=== PATIENT | female | born 1955 | race Caucasian/White ===

== ENCOUNTER 2017-03-20 18:50 | Emergency (ER) | payer OTHER ==
[~2017-03-20] VITALS: Ht 170.2 cm; Wt 87.2 kg
[~2017-03-20 18:50] MED LIST: MORP60TA6 PO; OXYC-57 PO
[2017-03-20 19:21] VITALS: TEMP 37; Ht 170.2 cm; Wt 87.2 kg
[2017-03-20] MEDS ORDERED: PRO AIR INH (20:28)
[2017-03-20] MEDS ORDERED: PRLSR20 PO (20:28)
[2017-03-20] MEDS ORDERED: OXYC-57 PO (20:28)
[2017-03-20] MEDS ORDERED: SCOP1.5D2 TD (20:28)
[2017-03-20] MEDS ORDERED: LORA-741 PO (20:28)
[2017-03-20] MEDS ORDERED: MORP-157 PO (20:28)
[2017-03-20] MEDS ORDERED: ACET-1256 PO (20:28)
[2017-03-20] MEDS ORDERED: PROM25TA9 PO (20:28)
[2017-03-20] MEDS ORDERED: SIMV10TA2 PO (20:28)
[2017-03-20] MEDS ORDERED: LISI-461 PO (20:28)
[2017-03-20] MEDS ORDERED: MORP-88 PO (20:28)
[2017-03-20] MEDS ORDERED: OMEG10007 PO (20:28)
[2017-03-20] MEDS ORDERED: DIPH25CA5 PO (20:28)
[2017-03-20] MEDS ORDERED: PROPARACAINE HCL 0.5% OP SOLN 15 ML BTL OP STA (20:32)
[2017-03-20] MEDS ORDERED: ACETAMINOPHEN 500 MG TAB PO STA (21:24)
--- NOTE | 2017-03-20 22:03 | Ophthalmology Consultation ---
Ophthalmology Consultation Date of Service: Mar 20, 2017. Requested By: [facility] History of Present Illness: 61 y/o female presents for right eye pain and vision loss x 1 month. started prior to going on 21 day cruise. tried OTC tears/gel/eye wash and has be progressively getting worse CC: eye pain/vision loss OD Vision: worse Location (of CC): OD Quality/Severity: moderate-severe Duration: 1 month Timing: progressively getting worse Context: did not seek eye care Associated Signs/Symptoms: photophobia Modifying Factors: none No other eye complaints. Mood and Affect: normal Past Ocular History: Right Eye: 1. h/o glasses/CL use Left Eye: 1. h/o glasses/CL use Medications: see EMR Relevant Past Medical History: HTN, chronic back pain VA OD: HM OS: NT IOP: 20 OD tonopen VF: unable to test due to HM VA Motility: full OU External: The ocular adnexae are unremarkable. SLE: Lids/Lashes: wnl OU Conjunctiva/Sclera: 3+injection OD; quiet OS Cornea: +5mm H x 2mm vertical central epithelial defect w/ corneal fold and vascular folds OD; clear OS Anterior Chamber: +fluro flare OD (fluro instilled in ED)otherwise deep and quiet OU Iris: normal OU; no NVI OU Lens: nsc OU Dilated fundus exam OD: deferred Dilated fundus exam OS: deferred Assessment and Plan: 1. Corneal Abrasion OD -no infiltrate/ulcer, but nonhealing for approx 1 month -cover w/ ciloxan ophth oint 6x/day and atropine 1% bid for photophobia/pain -may require bandage CL/topical steroid regimen Follow-Up: -f/u w/ general ophth [facility] tomorrow Parag Simmons DO
[2017-03-20] MEDS ORDERED: ATROPINE SULFATE 1% OP SOLN 5 ML BTL OP STA (22:12)
[2017-03-20] MEDS ORDERED: CIPROFLOXACIN HCL 3.5 GM TUBE OP ONE (22:15)
--- NOTE | 2017-03-20 22:21 | EMERGENCY ROOM VISIT NOTE ---
History First contact with patient: 20:00 Chief Complaint: EYE PAIN Stated Complaint: RT EYE BLURRY,RED,SENSITIVE TO LIGHT,PAIN- REFERRE History of Present Illness The patient is a 61 year old female who presents to the Emergency Room with complaints of severe right eye pain that has gotten progressively worse over the last month. The patient denies any known injury. She does not wear contact lenses. She has had significantly decreased vision, which she describes as blurry in that eye. She describes the pain as a sharp, stabbing sensation that is worsened with light exposure. No fevers. The patient saw her primary care physician today, who is concerned about glaucoma. She was subsequently sent here for evaluation. Review of Systems 6 system review negative. Please see pertinent positives in the history of present illness section. Past Medical/Surgical History Hypertension Chronic pain Social History Smoking Status: Former Smoker Marital Status: Current/Historical Medications Scheduled Acetaminophen (Tylenol), 500 MG PO PRN Fish Oil (Florissant-3), 1 CAP PO TID Lisinopril (Zestril), 10 MG PO DAILY Morphine Cont Rel (Ms Contin), 15 MG PO DAILY Morphine Sulfate (Morphine Sulfate Cr), 60 MG PO Q12 Omeprazole (Prilosec), 20 MG PO DAILY Scopolamine (Transderm-Scop), 1.5 MG TD Q72H Simvastatin (Zocor), 1 TAB PO HS Scheduled PRN Diphenhydramine Hcl (Benadryl), 25 MG PO DAILY PRN for PRN Lorazepam (Ativan), 0.5 MG PO DAILY PRN for TRAVEL Oxycodone/Acetaminophen 5MG/325MG (Percocet 5MG/325MG), 1 TABLET PO BID PRN for SEVERE PAIN Promethazine Hcl (Phenergan), 25 MG PO Q8 PRN for Nausea [Pro Air], 2 PUFF INH Q4 PRN for Wheezing Physical Exam Vital Signs Date Time Temp Pulse Resp B/P (MAP) Pulse Ox O2 Delivery O2 Flow Rate FiO2 03/20/17 22:54 94 163/105 94 03/20/17 19:21 37.0 107 19 155/87 90 Room Air Right Eye Acuity: PT REPORTS EVERYTHING IS BLURRY Left Eye Acuity: 20/50 Physical Exam VITALS: Vitals are noted on the nurse's note and reviewed by myself. Vital signs stable. GENERAL: 61-year-old female, in obvious discomfort,, in no acute distress, nondiaphoretic, well-developed well-nourished. SKIN: The skin was without rashes, erythema, edema, or bruising. HEAD: Normocephalic atraumatic. EYES:Extraocular movements intact. Tearing noted from the right eye. The conjunctiva is injected from the right eye. Insert Slit Lamp Exam Slit Lamp Examination was performed of the right eye(s). Alcaine drops were applied to the affected eye(s) for proper anesthetization. The affected eye(s) were stained with Fluorescein stain to precipitate adequate visualization of any conjunctival/scleral excoriations or ulcers. The patients face was comfortably rested on the chin guard of the slit lamp apparatus. The lights were dimmed and the affected eye(s) were thoroughly examined under microscopy using the blue light. Approximate 4 x 3 mm deep uptake was present Directly over the right pupil. Additionally, the eye(s) were examined under microscopy using the regular light. Close examination revealed injection. No other abnormalities. No foreign body. No hyphema.. Patient tolerated the procedure well and no complications were met. Insert Optic Tonometry Right eye: 20, 20, 21 Left eye: Unable to obtain MUSCULOSKELETAL: Strength 5/5 throughout. NEURO: Patient was alert and oriented to person place and time. Normal sensation to touch. No focal neurological deficits. Medical Decision & Procedures Medications Administered Medications (Trade) Dose Ordered Sig/Carlotta Route Start Time Stop Time Status Last Admin Dose Admin Proparacaine HCl (Alcaine 0.5% Oph Soln) 2 drops NOW STAT OP 03/20/17 20:32 03/20/17 20:34 DC 03/20/17 20:38 2 DROPS Acetaminophen (Tylenol Tab) 500 mg NOW STAT PO 03/20/17 21:24 03/20/17 21:25 DC 03/20/17 21:29 500 MG Ciprofloxacin HCl (Ciloxan 0.3% Op Oint) 1 appln NOW ONCE OP 03/20/17 22:15 03/20/17 22:16 DC 03/20/17 22:50 1 APPLN Atropine Sulfate (Atropine Sulfate 1% Oph Soln) 1 drops ONE STAT OP 03/20/17 22:12 03/20/17 22:14 DC 03/20/17 22:50 1 DROPS ED Course The patient was seen and examined she was given Percocet for pain The case was discussed with Dr. Simmons in ophthalmology who kindly agreed to evaluate the patient We discussed the case. The findings were discussed with the patient and the patient's significant other. They voiced understanding. Ciloxan ophthalmic ointments were applied to the right eye. Atropine drop was also applied to the right eye. Discharge instructions were reviewed, and the patient was discharged in good condition Medical Decision Differential diagnosis: Corneal abrasion, ulcer, foreign-body, iritis, hyphema, glaucoma, globe rupture, scleritis, infectious etiology This patient is a 61-year-old female that presents to the emergency department with complaints of severe right eye discomfort and vision loss. On exam, she had significant uptake on the cornea over the pupil. Due to her physical exam, and decrease in vision, ophthalmology was consulted. They kindly evaluated the patient in the emergency department. Her diagnosis is a nonhealing, chronic corneal abrasion. Antibiotic ointment and atropine were recommended. This was dispensed to the emergency department. She was advised to contact the corneal specialist in the morning for a follow-up appointment tomorrow. She and her significant other are comfortable with this plan, and she was discharged in good condition. She will return for any worsening symptoms. This chart was completed in part utilizing [employer] Speech Voice Recognition software. Attempts were made to minimize the grammatical errors, random word insertions, pronoun errors and incomplete sentences. Any formal questions or concerns about the content, text or information contained within the body of this dictation should be directly addressed to the provider for clarification. Consults Consulting Physician: Dr. Simmons Impression Primary Impression: Corneal abrasion, right Departure Information Dispostion Home / Self-Care Condition GOOD Referrals Brenda Patrick M.D. (PCP) Jose Angel Walker M.D. Patient Instructions ED Abrasion Corneal Ch, My [facility] Additional Instructions You were evaluated in the emergency department for eye pain. The repairing calibrator evaluated a few, and believes this is coming from a chronic corneal abrasion Please do Ciloxan ophthalmic ointment apply 1 application to the eyelid every 4 hours Please do atropine drops 1 drop to the right eye twice daily for pain Continue other pain medication as prescribed Please call Dr. Walker's office in the morning for a follow up appointment Do not hesitate to return to the emergency department with any new, worsening or concerning symptoms
[2017-03-20 22:54] VITALS: BP 163/105; PULSE 94; O2SAT 94
== END 2017-03-20 22:55 | disposition home or self-care (01) ==
LOC: C.EDB 18:51 → C.EDD 22:55
DX: S05.01XA Injury of conjunctiva and corneal abrasion without foreign body, right eye, initial encounter (principal); X58.XXXA Exposure to other specified factors, initial encounter; I10 Essential (primary) hypertension; G89.29 Other chronic pain; Z87.891 Personal history of nicotine dependence; Z79.899 Other long term (current) drug therapy

== ENCOUNTER 2018-07-23 19:47 | Inpatient (IN) ==
[2018-07-23] MEDS ORDERED: LORazepam 2 MG/4 ML VIAL IV STA (20:09)
[2018-07-23] MEDS ORDERED: SODIUM CHLORIDE 0.9% 1000ML 1,000 ML IV SCH ×2 (20:15)
[2018-07-23 20:54] LABS: Basophils # (auto) 0.01 K/uL (0-0.2); Basophils % (auto) 0.1 %; Hematocrit (blood only) 41.3 % (37-47); Hemoglobin 14.6 g/dL (12.0-16.0); Immature Granulocytes % (auto) 0.6 %; Lymphocytes # (auto) 0.56 K/uL (1.2-3.4); Lymphocytes % (auto) 3.3 %; Mean Corpuscular Hgb Conc 35.4 g/dL (32-36); Mean Corpuscular Volume 88.8 fL (80-100); Mean Platelet Volume 11.2 fL (7.4-10.4); Monocytes # (auto) 0.77 K/uL (0.11-0.59); Monocytes % (auto) 4.5 %; Neutrophils # (auto) 15.69 K/uL (1.4-6.5); Neutrophils % (auto) 91.5 %; Platelet Count 169 K/uL (130-400); RDW Coefficient of Variation 12.7 % (11.5-14.5); RDW Standard Deviation 40.7 fL (36.4-46.3); Red Blood Count 4.65 M/uL (4.2-5.4); White Blood Count 17.13 K/uL (4.8-10.8)
[2018-07-23] MEDS ORDERED: SUCCINYLCHOLINE CHLORIDE 20 MG/ML 10 ML VIAL IV ONE (21:09)
[2018-07-23] MEDS ORDERED: ETOMIDATE 2 MG/ML 20 ML VIAL IV ONE (21:09)
--- NOTE | 2018-07-23 21:19 | CT Scan Report ---
HEAD CT NONCONTRAST CT DOSE: 537.48 mGy.cm HISTORY: Altered mental status. TECHNIQUE: Multiaxial CT images of the head were performed without the use of intravenous contrast. A utomated exposure control was utilized for this study. A dose lowering technique was utilized adheri ng to the principles of ALARA. Comparison: None. Findings: The paranasal sinuses and mastoid air cells are clear. The calvarium and skull base are int act. There is no mass, hematoma, midline shift, acute infarct. White matter hypodensity is nonspecifi c but suggestive of microvascular ischemic change. The ventricles and sulci demonstrate mild age-rela donny involutional changes. Impression: No acute intracranial abnormality. White matter hypodensity is nonspecific but suggestive of microvas cular ischemic change. Electronically signed by: Parmjit Chowdhury M.D. 07/23/2018 9:18 PM
[2018-07-23] MEDS ORDERED: RAPID SEQUENCE INDUCTION BAG ONE (21:39)
[2018-07-23 21:40] LABS: Alanine Aminotransferase 322 U/L (12-78); Albumin Level 3.7 gm/dl (3.4-5.0); Alkaline Phosphatase 195 U/L (45-117); BUN Creatinine Ratio 13.6 (10-20); Bilirubin,Total 4.7 mg/dl (0.2-1); Blood Urea Nitrogen 15 mg/dl (7-18); Calcium 9.5 mg/dl (8.5-10.1); Carbon Dioxide 22 mmol/L (21-32); Chloride 101 mmol/L (98-107); Est GFR (African American) 64.2; Est GFR (Non-African American) 55.4; Globulin 3.8 gm/dl (2.5-4.0); Glucose 211 mg/dl (70-99); Sodium 135 mmol/L (136-145); Total Protein 7.5 gm/dl (6.4-8.2); Troponin I < 0.015 ng/ml (0-0.045)
[2018-07-23 21:41] LABS: Aspartate Aminotransferase 307 U/L (15-37); Magnesium 1.7 mg/dl (1.8-2.4); Potassium 3.9 mmol/L (3.5-5.1)
--- NOTE | 2018-07-23 21:41 | XRay Report ---
KUB HISTORY: Distended abdomen. COMPARISON: None. FINDINGS: The bowel gas pattern is unremarkable. There are no dilated loops of small bowel to suggest an obstruction. No renal calculi. No ureteral calculi. No pneumoperitoneum or pneumatosis. S-shaped scoliosis of the thoracolumbar spine. IMPRESSION: Unremarkable bowel gas pattern. No evidence for bowel obstruction. Electronically signed by: Parmjit Chowdhury M.D. 07/23/2018 9:39 PM
--- NOTE | 2018-07-23 21:42 | XRay Report ---
XR chest 1V portable HISTORY: weakness COMPARISON: None. FINDINGS: No pneumothorax. No pleural effusions. A few left basilar linear densities suggesting subse gmental atelectasis. The heart is borderline enlarged. Rotated study. Mild perihilar interstitial thi ckening which could be technical or represent mild congestive change. IMPRESSION: Mild perihilar interstitial thickening which could be technical or represent mild congestive change. Electronically signed by: Parmjit Chowdhury M.D. 07/23/2018 9:40 PM
[2018-07-23] MEDS ORDERED: PROPOFOL IV EMULSION 10 MG/ML 100 ML VIAL IV ONE (21:48)
[2018-07-23] MEDS ORDERED: KETOROLAC TROMETHAMINE 15 MG/ML VIAL IV STA (21:58)
[2018-07-23] MEDS ORDERED: PROPOFOL 1,000 MG/100 ML VIAL IV SCH (22:00)
[2018-07-23] MEDS ORDERED: MAGNESIUM SULFATE 1GM / D5W BAG IV ONE (22:09)
[2018-07-23] MEDS: MAGNESIUM SULFATE / D5W 1 GM/100 ML BAG IV SCH ×2 (22:15→23:27)
[2018-07-23] MEDS ORDERED: AcetylCYSTEINE IV 21 HR REGIMEN (>40KG) IV STA (22:23)
[2018-07-23] MEDS ORDERED: cefTRIAXone SODIUM 2,000 MG in DEXTROSE 5% 50 ML IV STA (22:23)
[2018-07-23] MEDS ORDERED: ACETYLCYSTEINE IV ONE ×2 (22:23→23:26)
[2018-07-23] MEDS ORDERED: DEXTROSE 5% IV ONE ×2 (22:23→23:26)
[2018-07-23 22:26] LABS: HCO3 ABG 19 mmol/L (19-24); Oxygen Saturation ABG 97.3 % (90-95); PCO2 ABG 34 mmHg (35-46); PO2 ABG 108 mm/Hg (80-95); pH ABG 7.38 (7.35-7.45)
[2018-07-23 22:29] LABS: Allen Test POS (Pos)
[2018-07-23 22:29] LABS: Appearance Urine Clear (Clear); Color Urine Yellow; Glucose Urine UA 2+ (Negative); Ketones Urine Trace (Negative); Leukocyte Esterase Urine Negative (Negative); Nitrite Urine Negative (Negative); Protein Urine 1+ (Negative); Specific Gravity Urine 1.015 (1.000-1.030); Urobilinogen Urine Negative (Negative)
[2018-07-23 22:33] LABS: Bilirubin Urine 2+ (Negative)
[2018-07-23 22:34] LABS: Ictotest Urine Positive (Negative)
[2018-07-23 22:48] LABS: Bacteria Urine Negative (Negative); RBC Urine 0-4 /hpf (0-4); WBC Urine 0-5 /hpf (0-5)
--- NOTE | 2018-07-23 22:48 | Emergency Department Note ---
Entered by Garth Tejeda acting as a scribe for Kamini Acosta MD History of Present Illness General Chief complaint: Altered Mental Status Stated complaint: BACK PAIN Source: family Limitations: altered mental status History of Present Illness Onset (ago): day(s) 1 Location: back Pain Consistency: + constant Associated symptoms: + other (abdominal pain; no vomiting or diarrhea) History is limited secondary to cognitive status. The patient is a 62 year old female with chronic pain syndrome who presents to the Emergency Room with complaints of constant back pain beginning yesterday and altered mental status. The at bedside reports that the patients pain has been worsening in the past several hours. He states that in the past couple of hours she started hallucinating and speaking to people that were not there, and on the way to the ER she was complaining of abdominal pain. He states that the patient has been attempting to urinate frequently throughout the day, but he thinks she only was able to urinate once. He states that she is taking oxycodone and Percocet but is currently being weaned off of these by her PCP. He notes that they have sqvd-yho-gscdset sleeping pills, allergy medication, and Tylenol PM at home. He is unsure if the patient took extra medications today. He reports that the patient has not vomited or had diarrhea. He notes that she most recently had alcohol last week when they shared a bottle of wine, and she drinks very little. She does not use marijuana. Home Medications Home Medications Medication Instructions Recorded Confirmed Type Sleep Aid Tab 1 tab PO HS PRN 07/23/18 07/23/18 History acetaminophen [Tylenol Extra 500 mg PO Q6H PRN 07/23/18 07/23/18 History Strength] gabapentin [Neurontin] 100 mg PO TID 07/23/18 07/23/18 History lisinopril 10 mg PO DAILY 07/23/18 07/23/18 History morphine [MS Contin] 60 mg PO Q12 07/23/18 07/23/18 History omega 9-gvm-qiz-fish oil [[place]-3] 1 cap PO TID 07/23/18 07/23/18 History omeprazole 20 mg PO DAILY 07/23/18 07/23/18 History oxycodone-acetaminophen [Percocet] 1 tab PO BID PRN 07/23/18 07/23/18 History promethazine 25 mg PO Q8 PRN 07/23/18 07/23/18 History scopolamine base [Transderm-Scop] 1 patch TOPICAL .UD WHEN TRAVELING 07/23/18 07/23/18 History simvastatin [Zocor] 10 mg PO DAILY 07/23/18 07/23/18 History Allergies Allergy/AdvReac Type Severity Reaction Status Date / Time sulfamethoxazole Allergy Rash Verified 07/23/18 22:25 [From Bactrim] trimethoprim [From Bactrim] Allergy Rash Verified 07/23/18 22:25 IBUPROFEN Allergy Unknown GASTRIC Uncoded 07/23/18 22:25 SYMPTOMS Past Med/Surg History Medical History Scoliosis Chronic pain syndrome Surgical History History of back surgery Social History Preferred Language: Czech Communication Ability: Unable Beliefs That Will Affect Care: None Current Living Situation: Spouse Feels Safe at Home: Yes Smoking Status: Former smoker Hx Alcohol Use: Yes Alcohol type: wine Hx Substance Use: No Review of Systems Unobtainable due to cognitive status Physical Exam Vital Signs Vital Signs - 24 hr 07/23/18 19:49 07/23/18 19:58 07/23/18 20:06 Temperature 37.8 C H Temperature Source Oral Sepsis Recent Fever Within 48 Hours Yes Sepsis New/Unexplained Change in Mental Status Yes Sepsis Action Taken by Nursing No Action Required End-Tidal CO2 Pulse Rate 133 H 135 H 130 H Pulse Rate [Apical] Pulse Rate from SpO2 Sensor 135 H 130 H Respiratory Rate 22 27 H 21 Blood Pressure 171/84 H 156/106 H Blood Pressure [Left Arm] Blood Pressure Mean 113 122 Blood Pressure Mean [Left Arm] Pulse Oximetry 92 95 95 Oxygen Delivery Method Room Air Fraction of Inspired Oxygen 07/23/18 20:10 07/23/18 20:20 07/23/18 20:30 Temperature Temperature Source Sepsis Recent Fever Within 48 Hours Sepsis New/Unexplained Change in Mental Status Sepsis Action Taken by Nursing End-Tidal CO2 Pulse Rate 130 H 123 H 135 H Pulse Rate [Apical] Pulse Rate from SpO2 Sensor 130 H 124 H 136 H Respiratory Rate 32 H 26 H 22 Blood Pressure Blood Pressure [Left Arm] Blood Pressure Mean Blood Pressure Mean [Left Arm] Pulse Oximetry 94 95 96 Oxygen Delivery Method Room Air Fraction of Inspired Oxygen 07/23/18 20:40 07/23/18 20:42 07/23/18 20:50 Temperature Temperature Source Sepsis Recent Fever Within 48 Hours Sepsis New/Unexplained Change in Mental Status Sepsis Action Taken by Nursing End-Tidal CO2 Pulse Rate 135 H 134 H 129 H Pulse Rate [Apical] Pulse Rate from SpO2 Sensor 134 H 133 H 129 H Respiratory Rate 21 28 H 34 H Blood Pressure 176/105 H Blood Pressure [Left Arm] Blood Pressure Mean 128 Blood Pressure Mean [Left Arm] Pulse Oximetry 97 95 94 Oxygen Delivery Method Fraction of Inspired Oxygen 07/23/18 20:53 07/23/18 21:08 07/23/18 21:10 Temperature Temperature Source Sepsis Recent Fever Within 48 Hours Sepsis New/Unexplained Change in Mental Status Sepsis Action Taken by Nursing End-Tidal CO2 Pulse Rate 134 H 132 H Pulse Rate [Apical] 133 H Pulse Rate from SpO2 Sensor 134 H 132 H Respiratory Rate 18 34 H 36 H Blood Pressure Blood Pressure [Left Arm] 176/105 H Blood Pressure Mean Blood Pressure Mean [Left Arm] 128 Pulse Oximetry 96 93 93 Oxygen Delivery Method Room Air Fraction of Inspired Oxygen 07/23/18 21:20 07/23/18 21:30 07/23/18 21:40 Temperature Temperature Source Sepsis Recent Fever Within 48 Hours Sepsis New/Unexplained Change in Mental Status Sepsis Action Taken by Nursing End-Tidal CO2 Pulse Rate 132 H 130 H 130 H Pulse Rate [Apical] Pulse Rate from SpO2 Sensor 131 H 130 H Respiratory Rate 37 H 25 H Blood Pressure Blood Pressure [Left Arm] Blood Pressure Mean Blood Pressure Mean [Left Arm] Pulse Oximetry 93 99 Oxygen Delivery Method Fraction of Inspired Oxygen 07/23/18 21:41 07/23/18 21:42 07/23/18 21:43 Temperature Temperature Source Sepsis Recent Fever Within 48 Hours Sepsis New/Unexplained Change in Mental Status Sepsis Action Taken by Nursing End-Tidal CO2 33 Pulse Rate 132 H 132 H 127 H Pulse Rate [Apical] Pulse Rate from SpO2 Sensor 133 H 131 H Respiratory Rate 19 Blood Pressure 187/89 H 169/112 H Blood Pressure [Left Arm] Blood Pressure Mean 121 131 Blood Pressure Mean [Left Arm] Pulse Oximetry 99 100 97 Oxygen Delivery Method Fraction of Inspired Oxygen 40 07/23/18 21:46 07/23/18 21:50 07/23/18 21:51 Temperature Temperature Source Sepsis Recent Fever Within 48 Hours Sepsis New/Unexplained Change in Mental Status Sepsis Action Taken by Nursing End-Tidal CO2 Pulse Rate 147 H 145 H 137 H Pulse Rate [Apical] Pulse Rate from SpO2 Sensor 148 H 145 H 136 H Respiratory Rate Blood Pressure 258/105 H 227/97 H Blood Pressure [Left Arm] Blood Pressure Mean 156 140 Blood Pressure Mean [Left Arm] Pulse Oximetry 100 99 100 Oxygen Delivery Method Fraction of Inspired Oxygen 07/23/18 21:56 07/23/18 22:00 07/23/18 22:01 Temperature 39.1 C H Temperature Source Rectal Sepsis Recent Fever Within 48 Hours Sepsis New/Unexplained Change in Mental Status Sepsis Action Taken by Nursing End-Tidal CO2 33 27 37 Pulse Rate 138 H 138 H 139 H Pulse Rate [Apical] Pulse Rate from SpO2 Sensor 137 H 138 H 139 H Respiratory Rate Blood Pressure 172/101 H 208/99 H Blood Pressure [Left Arm] Blood Pressure Mean 124 135 Blood Pressure Mean [Left Arm] Pulse Oximetry 98 97 97 Oxygen Delivery Method Fraction of Inspired Oxygen 07/23/18 22:07 07/23/18 22:10 07/23/18 22:11 Temperature Temperature Source Sepsis Recent Fever Within 48 Hours Sepsis New/Unexplained Change in Mental Status Sepsis Action Taken by Nursing End-Tidal CO2 40 37 38 Pulse Rate 136 H 132 H 129 H Pulse Rate [Apical] Pulse Rate from SpO2 Sensor 137 H 133 H 128 H Respiratory Rate Blood Pressure 194/84 H 147/93 H Blood Pressure [Left Arm] Blood Pressure Mean 120 111 Blood Pressure Mean [Left Arm] Pulse Oximetry 96 96 97 Oxygen Delivery Method Fraction of Inspired Oxygen 07/23/18 22:16 07/23/18 22:17 07/23/18 22:20 Temperature Temperature Source Sepsis Recent Fever Within 48 Hours Sepsis New/Unexplained Change in Mental Status Sepsis Action Taken by Nursing End-Tidal CO2 36 33 33 Pulse Rate 124 H 122 H 125 H Pulse Rate [Apical] Pulse Rate from SpO2 Sensor 124 H 123 H 125 H Respiratory Rate Blood Pressure 146/80 H Blood Pressure [Left Arm] Blood Pressure Mean 102 Blood Pressure Mean [Left Arm] Pulse Oximetry 95 97 97 Oxygen Delivery Method Fraction of Inspired Oxygen 07/23/18 22:21 07/23/18 22:30 07/23/18 23:00 Temperature Temperature Source Sepsis Recent Fever Within 48 Hours Sepsis New/Unexplained Change in Mental Status Sepsis Action Taken by Nursing End-Tidal CO2 35 33 34 Pulse Rate 123 H 118 H 121 H Pulse Rate [Apical] Pulse Rate from SpO2 Sensor 122 H 118 H 121 H Respiratory Rate Blood Pressure 136/78 Blood Pressure [Left Arm] Blood Pressure Mean 97 Blood Pressure Mean [Left Arm] Pulse Oximetry 95 96 100 Oxygen Delivery Method Fraction of Inspired Oxygen 07/23/18 23:10 07/23/18 23:20 07/23/18 23:30 Temperature Temperature Source Sepsis Recent Fever Within 48 Hours Sepsis New/Unexplained Change in Mental Status Sepsis Action Taken by Nursing End-Tidal CO2 38 38 32 Pulse Rate 118 H Pulse Rate [Apical] Pulse Rate from SpO2 Sensor 137 H 125 H 118 H Respiratory Rate Blood Pressure Blood Pressure [Left Arm] Blood Pressure Mean Blood Pressure Mean [Left Arm] Pulse Oximetry 98 98 97 Oxygen Delivery Method Mechanical Vent Fraction of Inspired Oxygen 40 07/23/18 23:40 07/23/18 23:41 Temperature Temperature Source Sepsis Recent Fever Within 48 Hours Sepsis New/Unexplained Change in Mental Status Sepsis Action Taken by Nursing End-Tidal CO2 35 35 Pulse Rate 110 H 114 H Pulse Rate [Apical] Pulse Rate from SpO2 Sensor 112 H 114 H Respiratory Rate 16 Blood Pressure 153/69 H Blood Pressure [Left Arm] Blood Pressure Mean 97 Blood Pressure Mean [Left Arm] Pulse Oximetry 97 98 Oxygen Delivery Method Mechanical Vent Mechanical Vent Fraction of Inspired Oxygen 40 40 Vital signs reviewed. General: Disheveled-appearing female rolling about the bed, seems agitated. HEENT: Dry mucous membranes and crusty lips. No scleral icterus, pupils 4mm and reactive bilaterally, neck supple. Atraumatic. Cardiovascular: Tachycardic rate, regular rhythm, no extra sounds. Pulmonary: Clear to auscultation bilaterally, normal work of breathing. Abdomen: Slightly distended and obese abdomen, mild diffuse abdominal tenderness to palpation, positive bowel sounds. Musculoskeletal: Atraumatic, no peripheral edema. Neurologic: Moves all extremities equally, follows commands minimally, unable to answer questions appropriately. picking at the air- hallucinations? Skin: Warm, dry, no rash Procedures Free Text Procedures PROCEDURE NOTE: Informed consent was obtained from the . Verify Correct Patient: yes Procedure: Endotracheal intubation Indication: aortic protection, obtunded The procedure was done emergently. Description of the Procedure: The patient was seen and properly identified. The patient was pre-oxygenated and intubated after rapid sequence induction with meds: succinylcholine and etomidate. Intubation was performed using a 4.0 MAC blade and a 8.0 cuffed endotracheal tube. The tube was visualized going through the cords and secured with the 22 cm tyrone at the lips. The patient had good b ilateral breath sounds in the axillae with good chest rise. Proper ET tube placement was confirmed by end tidal CO2 detector. Propofol used for further maintenance. The patient tolerated the procedure well. Central Line Placement Right Femoral: Time Out Performed: Yes Patient Placed on Monitor/Pulse Ox: Yes MD Prep: mask, gown and gloves Central Line Prep: Chlorhexidine scrub Ultrasound Used for Placement: No Central Line Lumen Inserted: triple Post Procedure: sutured in place, good blood return, all ports aspirated, flushed, capped and sterile dressing applied Patient Tolerated Procedure: well and no complications Complications: none Lumbar Puncture Time Out Performed: Yes Patient Position: right lateral decubitus Skin Prep: Povidone-Iodine 1% Spinal Needle Gauge: 20G Interspace Used: L3-L4 Complications: unable to obtain CSF Additional Comments: Patient has significant postoperative change and scoliosis interfering with the bedside lumbar puncture attempt. Course 1956: The patient was evaluated in room C10. A complete history and physical examination were performed. 2127: Intubation was performed in the ER in room B1. See procedure note for further detail. 2199: I spoke to the nurse helper marble finisher. 2200: The patients temperature is 39.4. Bilirubin is 4.7 and liver enzymes are in the 300s. 2210: I consulted Dr. Jorge Tube Pusher. 221: I consulted Dr[facility] Hospital[facility]. The patient will be reevaluated for hospitalization. Administered Medications Heparin Sodium (Porcine) (Heparin Sodium (Porcine)) 5,000 units SQ Q8 TRELL Stop: 08/23/18 13:59 Last Admin: 07/24/18 12:46 Dose: 5,000 units Documented by: [id number] Cosigned by: [id number] Hydromorphone HCl (Dilaudid) 0.5 mg IV Q3H PRN PRN Reason: Pain Stop: 08/07/18 01:04 Last Admin: 07/24/18 16:25 Dose: 0.5 mg Documented by: [id number] Sodium Chloride (Nss 1000ml) 1,000 mls @ 125 mls/hr IV .Q8H TRELL Stop: 08/23/18 01:04 Last Admin: 07/24/18 12:44 Dose: 125 mls/hr Documented by: [id number] Infusion: 07/24/18 12:44 Dose: 200 mls/hr Documented by: [id number] Admin: 07/24/18 07:50 Dose: 200 mls/hr Documented by: [id number] Infusion: 07/24/18 07:20 Dose: 200 mls/hr Documented by: [id number] Admin: 07/24/18 02:20 Dose: 200 mls/hr Documented by: [id number] Metronidazole (Flagyl) 500 mg in 100 mls @ 100 mls/hr IV Q8H TRELL Stop: 08/03/18 07:59 Last Infusion: 07/24/18 17:17 Dose: 0 mls/hr Documented by: [id number] Admin: 07/24/18 16:10 Dose: 100 mls/hr Documented by: [id number] Infusion: 07/24/18 09:25 Dose: 0 mls/hr Documented by: [id number] Admin: 07/24/18 07:54 Dose: 100 mls/hr Documented by: [id number] Cefepime HCl 2,000 mg/ Syringe 20 mls @ 5.5 mls/min IV Q8H TRELL; Protocol Stop: 08/03/18 01:59 Last Admin: 07/24/18 17:25 Dose: 5.5 mls/min Documented by: [id number] Admin: 07/24/18 10:26 Dose: 5.5 mls/min Documented by: [id number] Admin: 07/24/18 01:53 Dose: 5.5 mls/min Documented by: [id number] Famotidine 20 mg/ Syringe 5 mls @ 2.5 mls/min IV Q12H TRELL Stop: 08/23/18 08:59 Last Admin: 07/24/18 07:54 Dose: 2.5 mls/min Documented by: [id number] Insulin Aspart (Novolog Flexpen) 0 units SC ACHS TRELL Stop: 08/23/18 07:29 Last Admin: 07/24/18 18:10 Dose: Not Given Documented by: [id number] Cosigned by: [id number] Admin: 07/24/18 12:44 Dose: Not Given Documented by: [id number] Cosigned by: [id number] Admin: 07/24/18 08:03 Dose: 1 units Documented by: [id number] Cosigned by: [id number] Discontinued Medications Hydromorphone HCl (Dilaudid) 1 mg IV Q3H PRN PRN Reason: Pain Stop: 08/07/18 01:04 Last Admin: 07/24/18 12:08 Dose: 1 mg Documented by: [id number] Admin: 07/24/18 08:54 Dose: 1 mg Documented by: [id number] Admin: 07/24/18 02:39 Dose: 1 mg Documented by: [id number] Sodium Chloride (Nss 1000ml) 1,000 mls @ 999 mls/hr IV .Q1H1M TERLL Stop: 07/23/18 21:15 Last Infusion: 07/23/18 23:26 Dose: 0 mls/hr Documented by: [id number] Admin: 07/23/18 20:42 Dose: 999 mls/hr Documented by: [id number] Sodium Chloride (Nss 1000ml) 1,000 mls @ 125 mls/hr IV .Q8H TRELL Stop: 08/22/18 20:14 Last Infusion: 07/24/18 07:07 Dose: 0 mls/hr Documented by: [id number] Admin: 07/23/18 23:37 Dose: 125 mls/hr Documented by: [id number] Lorazepam (Ativan) 2 mg in 4 mls @ 4 mls/min IV NOW STA Stop: 07/23/18 20:10 Last Admin: 07/23/18 20:38 Dose: 4 mls/min Documented by: [id number] Propofol (Diprivan) 1,000 mg in 100 mls @ 0 mls/hr IV .Q0M TRELL Stop: 07/26/18 21:59 Last Infusion: 07/24/18 07:04 Dose: 30 mcg/kg/min, 16.1 mls/hr Documented by: [id number] Cosigned by: [id number] Admin: 07/24/18 01:53 Dose: 40 mcg/kg/min, 21.5 mls/hr Documented by: [id number] Cosigned by: [id number] Magnesium Sulfate/Dextrose (Magnesium Sulfate / D5w) 1 gm in 100 mls @ 100 mls/hr IV Q1H TRELL Stop: 07/24/18 00:14 Last Infusion: 07/24/18 00:25 Dose: 0 mls/hr Documented by: [id number] Admin: 07/23/18 23:27 Dose: 100 mls/hr Documented by: [id number] Admin: 07/23/18 22:15 Dose: Not Given Documented by: [id number] Ceftriaxone Sodium 2,000 mg/ (Dextrose) 70 mls @ 100 mls/hr IV NOW STA Stop: 07/23/18 23:04 Last Infusion: 07/24/18 00:38 Dose: 0 mls/hr Documented by: [id number] Admin: 07/23/18 23:58 Dose: 100 mls/hr Documented by: [id number] Acetylcysteine 4,475 mg/ (Dextrose) 522.375 mls @ 125 mls/hr IV ONE ONE; Protocol Stop: 07/24/18 03:25 Last Infusion: 07/24/18 06:15 Dose: 0 mls/hr Documented by: [id number] Admin: 07/24/18 01:33 Dose: 125 mls/hr Documented by: [id number] Acetylcysteine 8,950 mg/ (Dextrose) 1,044.75 mls @ 62.5 mls/hr IV ONE ONE; Protocol Stop: 07/24/18 19:25 Last Infusion: 07/24/18 08:35 Dose: 0 mls/hr Documented by: [id number] Admin: 07/24/18 06:23 Dose: 62.5 mls/hr Documented by: [id number] Acetylcysteine 13,425 mg/ (Dextrose) 267.125 mls @ 200 mls/hr IV ONE ONE; Protocol Stop: 07/23/18 23:22 Last Infusion: 07/24/18 01:00 Dose: 0 mls/hr Documented by: [id number] Admin: 07/23/18 23:34 Dose: 200 mls/hr Documented by: [id number] Propofol (Diprivan) 1,000 mg in 100 mls @ 2.685 mls/hr IV .Q24H ONE; Protocol Stop: 07/24/18 23:21 Last Admin: 07/24/18 07:38 Dose: Not Given Documented by: [id number] Metronidazole (Flagyl) 500 mg in 100 mls @ 100 mls/hr IV NOW STA Stop: 07/24/18 00:22 Last Infusion: 07/24/18 01:15 Dose: 0 mls/hr Documented by: [id number] Admin: 07/24/18 00:14 Dose: 100 mls/hr Documented by: [id number] Propofol (Diprivan) 1,000 mg in 100 mls @ 16.11 mls/hr IV .Q6H13M PRN; Protocol PRN Reason: TITRATE Stop: 07/26/18 23:21 Last Titration: 07/24/18 09:26 Dose: 0 mcg/kg/min, 0 mls/hr Documented by: [id number] Admin: 07/24/18 07:51 Dose: 30 mcg/kg/min, 16.1 mls/hr Documented by: [id number] Cosigned by: [id number] Titration: 07/24/18 06:20 Dose: 30 mcg/kg/min, 16.1 mls/hr Documented by: [id number] Titration: 07/24/18 04:00 Dose: 40 mcg/kg/min, 21.5 mls/hr Documented by: [id number] Titration: 07/24/18 02:40 Dose: 50 mcg/kg/min, 26.9 mls/hr Documented by: [id number] Titration: 07/24/18 01:35 Dose: 40 mcg/kg/min, 21.5 mls/hr Documented by: [id number] Titration: 07/24/18 00:23 Dose: 30 mcg/kg/min, 16.1 mls/hr Documented by: [id number] Titration: 07/24/18 00:13 Dose: 25 mcg/kg/min, 13.4 mls/hr Documented by: [id number] Titration: 07/23/18 23:53 Dose: 20 mcg/kg/min, 10.7 mls/hr Documented by: [id number] Admin: 07/23/18 23:25 Dose: 15 mcg/kg/min, 8.1 mls/hr Documented by: [id number] Cosigned by: [id number] Sodium Chloride (Nss 1000ml) 1,000 mls @ 999 mls/hr IV .Q1H1M TRELL Stop: 07/24/18 02:05 Last Infusion: 07/24/18 02:35 Dose: 0 mls/hr Documented by: [id number] Admin: 07/24/18 01:33 Dose: 999 mls/hr Documented by: [id number] Vancomycin HCl 2,250 mg/ (Sodium Chloride) 545 mls @ 200 mls/hr IV TODAY@0130 TRELL Stop: 07/24/18 04:14 Last Infusion: 07/24/18 04:29 Dose: 0 mls/hr Documented by: [id number] Admin: 07/24/18 01:34 Dose: 200 mls/hr Documented by: [id number] Potassium Chloride (K Devante / Wtr) 10 meq in 100 mls @ 100 mls/hr IV Q1H TRELL Stop: 07/24/18 08:00 Last Infusion: 07/24/18 10:21 Dose: 0 mls/hr Documented by: [id number] Admin: 07/24/18 08:34 Dose: 100 mls/hr Documented by: [id number] Infusion: 07/24/18 08:34 Dose: 100 mls/hr Documented by: [id number] Admin: 07/24/18 07:50 Dose: 100 mls/hr Documented by: [id number] Infusion: 07/24/18 07:22 Dose: 100 mls/hr Documented by: [id number] Admin: 07/24/18 06:22 Dose: 100 mls/hr Documented by: [id number] Infusion: 07/24/18 05:23 Dose: 100 mls/hr Documented by: [id number] Admin: 07/24/18 04:23 Dose: 100 mls/hr Documented by: [id number] Potassium Phosphate 30 mmol/ (Sodium Chloride) 510 mls @ 88 mls/hr IV ONE ONE Stop: 07/24/18 10:02 Last Infusion: 07/24/18 10:21 Dose: 0 mls/hr Documented by: [id number] Admin: 07/24/18 04:19 Dose: 88 mls/hr Documented by: [id number] Sodium Chloride (Nss) 500 mls @ 500 mls/hr IV .Q1H TRELL Stop: 07/24/18 05:14 Last Infusion: 07/24/18 05:30 Dose: 0 mls/hr Documented by: [id number] Admin: 07/24/18 04:20 Dose: 500 mls/hr Documented by: [id number] Norepinephrine Bitartrate 8 mg (/ Dextrose) 508 mls @ 0 mls/hr IV .Q0M PRN; Protocol PRN Reason: TITRATE Stop: 08/23/18 04:44 Last Titration: 07/24/18 12:50 Dose: 0 mcg/kg/min, 0 mls/hr Documented by: [id number] Titration: 07/24/18 09:40 Dose: 0 mcg/kg/min, 0 mls/hr Documented by: [id number] Titration: 07/24/18 09:00 Dose: 0.04 mcg/kg/min, 13.1 mls/hr Documented by: [id number] Titration: 07/24/18 08:30 Dose: 0.06 mcg/kg/min, 19.6 mls/hr Documented by: [id number] Titration: 07/24/18 08:00 Dose: 0.08 mcg/kg/min, 26.2 mls/hr Documented by: [id number] Titration: 07/24/18 07:04 Dose: 0.1 mcg/kg/min, 32.7 mls/hr Documented by: [id number] Cosigned by: [id number] Admin: 07/24/18 05:18 Dose: 0.1 mcg/kg/min, 32.7 mls/hr Documented by: [id number] Cosigned by: [id number] Ioversol (Optiray 320 125ml) 125 ml IV ONCE PRN PRN Reason: Interaction Checking Stop: 07/27/18 22:54 Last Admin: 07/23/18 22:56 Dose: 118 ml Documented by: [id number] Ketorolac Tromethamine (Toradol) 15 mg IV NOW STA Stop: 07/23/18 21:59 Last Admin: 07/23/18 22:02 Dose: 15 mg Documented by: [id number] Ketorolac Tromethamine (Toradol) 15 mg IV NOW ONE Stop: 07/24/18 01:57 Last Admin: 07/24/18 02:15 Dose: 15 mg Documented by: [id number] Magnesium Sulfate/Dextrose (Magnesium Sulfate / D5w) Confirm Administered Dose 2 gm IV .STK-MED ONE Stop: 07/23/18 22:10 Last Admin: 07/23/18 22:15 Dose: 2 gm Documented by: [id number] Miscellaneous () Confirm Administered Dose 1 ea .ROUTE .STK-MED ONE Stop: 07/23/18 21:40 Last Admin: 07/23/18 23:28 Dose: 1 ea Documented by: [id number] Propofol (Diprivan) Confirm Administered Dose 1,000 mg IV .STK-MED ONE Stop: 07/23/18 21:49 Last Admin: 07/23/18 21:58 Dose: 50 mg Documented by: [id number] Cosigned by: [id number] Medical Decision Making Differential Diagnosis Differential diagnosis includes: toxicologic, infection, hypoglycemia, electrolyte abnormalities, cardiac sources, intracerebral event, neurologic, as well as others were entertained. Medical Records Attestation: I reviewed the patient's medical records. Home Medications Current Medication List: was personally reviewed by me Laboratory Data Attestation: I reviewed the patient's lab results. Result diagrams: 07/24/18 12:19 07/24/18 12:19 Lab Results 07/23/18 07/23/18 07/23/18 Range/Units 20:33 20:33 21:33 WBC 17.13 H (4.8-10.8) K/uL RBC 4.65 (4.2-5.4) M/uL Hgb 14.6 (12.0-16.0) g/dL Hct 41.3 (37-47) % MCV 88.8 (80-100) fL MCH 31.4 (25-34) pg MCHC 35.4 (32-36) g/dL RDW Std Deviation 40.7 (36.4-46.3) fL RDW Coeff of Joanna 12.7 (11.5-14.5) % Plt Count 169 (130-400) K/uL MPV 11.2 H (7.4-10.4) fL Immature Gran % (Auto) 0.6 % Neut % (Auto) 91.5 % Lymph % (Auto) 3.3 % [place] % (Auto) 4.5 % Eos % (Auto) 0.0 % Baso % (Auto) 0.1 % Immature Gran # (Auto) 0.10 H (0.00-0.02) K/uL Neut # (Auto) 15.69 H (1.4-6.5) K/uL Lymph # (Auto) 0.56 L (1.2-3.4) K/uL [place] # (Auto) 0.77 H (0.11-0.59) K/uL Eos # (Auto) 0.00 (0-0.5) K/uL Baso # (Auto) 0.01 (0-0.2) K/uL ABG pH (7.35-7.45) ABG pCO2 (35-46) mmHg ABG pO2 (80-95) mm/Hg ABG HCO3 (19-24) mmol/L ABG O2 Saturation (90-95) % ABG Base Excess (-9-1.8) mEq/L Shimon Test (Pos) Barometric Pressure mm/Hg Oxygen Given Sodium 135 L (136-145) mmol/L Potassium 3.9 (3.5-5.1) mmol/L Chloride 101 (98-107) mmol/L Carbon Dioxide 22 (21-32) mmol/L Anion Gap 12.0 H (3-11) BUN 15 (7-18) mg/dl Creatinine 1.08 (0.6-1.2) mg/dl Est Cr Clr Drug Dosing Not Reportable Est GFR ( Amer) 64.2 Est GFR (Non-Af Amer) 55.4 BUN/Creatinine Ratio 13.6 (10-20) Glucose 211 H (70-99) mg/dl Lactate 4.2 H* (0.4-2.0) mmol/L Calcium 9.5 (8.5-10.1) mg/dl Magnesium 1.7 L (1.8-2.4) mg/dl Total Bilirubin 4.7 H (0.2-1) mg/dl AST 307 H (15-37) U/L ALT 322 H (12-78) U/L Alkaline Phosphatase 195 H (45-117) U/L Ammonia (11-32) umol/L Total Creatine Kinase (26-192) U/L Troponin I < 0.015 (0-0.045) ng/ml Total Protein 7.5 (6.4-8.2) gm/dl Albumin 3.7 (3.4-5.0) gm/dl Globulin 3.8 (2.5-4.0) gm/dl Albumin/Globulin Ratio 1.0 (0.9-2) TSH 0.411 (0.300-4.500) uIu/ml Specimen Hemolysis Urine Color Urine Appearance (Clear) Urine pH (4.5-7.5) Ur Specific [place] (1.000-1.030) Urine Protein (Negative) Urine Glucose (UA) (Negative) Urine Ketones (Negative) Urine Blood (Negative) Urine Nitrite (Negative) Urine Bilirubin (Negative) Urine Urobilinogen (Negative) Ur Leukocyte Esterase (Negative) Urine RBC (0-4) /hpf Urine WBC (0-5) /hpf Ur Epithelial Cells (0-5) /lpf Urine Bacteria (Negative) Salicylates Urine Opiates Screen (Neg) Ur Methadone, Qual (Neg) Acetaminophen Urine Barbiturates (Neg) Ur Phencyclidine (PCP) (Neg) U Amphetamin/Meth Scrn (Neg) MDMA (Ecstasy) Screen (Neg) U Benzodiazepines Scrn (Neg) Ur Cocaine Metabolite (Neg) U Marijuana (THC) Screen (Neg) Influenza Type A (PCR) (Neg) Influenza Type B (PCR) (Neg) 07/23/18 07/23/18 07/23/18 Range/Units 21:33 21:33 21:55 WBC (4.8-10.8) K/uL RBC (4.2-5.4) M/uL Hgb (12.0-16.0) g/dL Hct (37-47) % MCV (80-100) fL MCH (25-34) pg MCHC (32-36) g/dL RDW Std Deviation (36.4-46.3) fL RDW Coeff of Joanna (11.5-14.5) % Plt Count (130-400) K/uL MPV (7.4-10.4) fL Immature Gran % (Auto) % Neut % (Auto) % Lymph % (Auto) % [place] % (Auto) % Eos % (Auto) % Baso % (Auto) % Immature Gran # (Auto) (0.00-0.02) K/uL Neut # (Auto) (1.4-6.5) K/uL Lymph # (Auto) (1.2-3.4) K/uL [place] # (Auto) (0.11-0.59) K/uL Eos # (Auto) (0-0.5) K/uL Baso # (Auto) (0-0.2) K/uL ABG pH (7.35-7.45) ABG pCO2 (35-46) mmHg ABG pO2 (80-95) mm/Hg ABG HCO3 (19-24) mmol/L ABG O2 Saturation (90-95) % ABG Base Excess (-9-1.8) mEq/L Shimon Test (Pos) Barometric Pressure mm/Hg Oxygen Given Sodium (136-145) mmol/L Potassium (3.5-5.1) mmol/L Chloride (98-107) mmol/L Carbon Dioxide (21-32) mmol/L Anion Gap (3-11) BUN (7-18) mg/dl Creatinine (0.6-1.2) mg/dl Est Cr Clr Drug Dosing Est GFR ( Amer) Est GFR (Non-Af Amer) BUN/Creatinine Ratio (10-20) Glucose (70-99) mg/dl Lactate (0.4-2.0) mmol/L Calcium (8.5-10.1) mg/dl Magnesium (1.8-2.4) mg/dl Total Bilirubin (0.2-1) mg/dl AST (15-37) U/L ALT (12-78) U/L Alkaline Phosphatase (45-117) U/L Ammonia 19.9 (11-32) umol/L Total Creatine Kinase (26-192) U/L Troponin I (0-0.045) ng/ml Total Protein (6.4-8.2) gm/dl Albumin (3.4-5.0) gm/dl Globulin (2.5-4.0) gm/dl Albumin/Globulin Ratio (0.9-2) TSH (0.300-4.500) uIu/ml Specimen Hemolysis Urine Color Urine Appearance (Clear) Urine pH (4.5-7.5) Ur Specific [place] (1.000-1.030) Urine Protein (Negative) Urine Glucose (UA) (Negative) Urine Ketones (Negative) Urine Blood (Negative) Urine Nitrite (Negative) Urine Bilirubin (Negative) Urine Urobilinogen (Negative) Ur Leukocyte Esterase (Negative) Urine RBC (0-4) /hpf Urine WBC (0-5) /hpf Ur Epithelial Cells (0-5) /lpf Urine Bacteria (Negative) Salicylates Cancelled Urine Opiates Screen Pos H (Neg) Ur Methadone, Qual Neg (Neg) Acetaminophen Cancelled Urine Barbiturates Neg (Neg) Ur Phencyclidine (PCP) Neg (Neg) U Amphetamin/Meth Scrn Neg (Neg) MDMA (Ecstasy) Screen Neg (Neg) U Benzodiazepines Scrn Neg (Neg) Ur Cocaine Metabolite Neg (Neg) U Marijuana (THC) Screen Neg (Neg) Influenza Type A (PCR) (Neg) Influenza Type B (PCR) (Neg) 07/23/18 07/23/18 07/23/18 Range/Units 21:55 22:10 22:11 WBC (4.8-10.8) K/uL RBC (4.2-5.4) M/uL Hgb (12.0-16.0) g/dL Hct (37-47) % MCV (80-100) fL MCH (25-34) pg MCHC (32-36) g/dL RDW Std Deviation (36.4-46.3) fL RDW Coeff of Joanna (11.5-14.5) % Plt Count (130-400) K/uL MPV (7.4-10.4) fL Immature Gran % (Auto) % Neut % (Auto) % Lymph % (Auto) % [place] % (Auto) % Eos % (Auto) % Baso % (Auto) % Immature Gran # (Auto) (0.00-0.02) K/uL Neut # (Auto) (1.4-6.5) K/uL Lymph # (Auto) (1.2-3.4) K/uL [place] # (Auto) (0.11-0.59) K/uL Eos # (Auto) (0-0.5) K/uL Baso # (Auto) (0-0.2) K/uL ABG pH 7.38 (7.35-7.45) ABG pCO2 34 L (35-46) mmHg ABG pO2 108 H (80-95) mm/Hg ABG HCO3 19 (19-24) mmol/L ABG O2 Saturation 97.3 H (90-95) % ABG Base Excess -4.9 (-9-1.8) mEq/L Shimon Test POS (Pos) Barometric Pressure 728.5 mm/Hg Oxygen Given 4L Sodium (136-145) mmol/L Potassium (3.5-5.1) mmol/L Chloride (98-107) mmol/L Carbon Dioxide (21-32) mmol/L Anion Gap (3-11) BUN (7-18) mg/dl Creatinine (0.6-1.2) mg/dl Est Cr Clr Drug Dosing Est GFR ( Amer) Est GFR (Non-Af Amer) BUN/Creatinine Ratio (10-20) Glucose (70-99) mg/dl Lactate (0.4-2.0) mmol/L Calcium (8.5-10.1) mg/dl Magnesium (1.8-2.4) mg/dl Total Bilirubin (0.2-1) mg/dl AST (15-37) U/L ALT (12-78) U/L Alkaline Phosphatase (45-117) U/L Ammonia (11-32) umol/L Total Creatine Kinase (26-192) U/L Troponin I (0-0.045) ng/ml Total Protein (6.4-8.2) gm/dl Albumin (3.4-5.0) gm/dl Globulin (2.5-4.0) gm/dl Albumin/Globulin Ratio (0.9-2) TSH (0.300-4.500) uIu/ml Specimen Hemolysis Urine Color Yellow Urine Appearance Clear (Clear) Urine pH 6.0 (4.5-7.5) Ur Specific [place] 1.015 (1.000-1.030) Urine Protein 1+ H (Negative) Urine Glucose (UA) 2+ H (Negative) Urine Ketones Trace H (Negative) Urine Blood Trace H (Negative) Urine Nitrite Negative (Negative) Urine Bilirubin 2+ H (Negative) Urine Urobilinogen Negative (Negative) Ur Leukocyte Esterase Negative (Negative) Urine RBC 0-4 (0-4) /hpf Urine WBC 0-5 (0-5) /hpf Ur Epithelial Cells 0-5 (0-5) /lpf Urine Bacteria Negative (Negative) Salicylates Urine Opiates Screen (Neg) Ur Methadone, Qual (Neg) Acetaminophen Urine Barbiturates (Neg) Ur Phencyclidine (PCP) (Neg) U Amphetamin/Meth Scrn (Neg) MDMA (Ecstasy) Screen (Neg) U Benzodiazepines Scrn (Neg) Ur Cocaine Metabolite (Neg) U Marijuana (THC) Screen (Neg) Influenza Type A (PCR) Neg for Influ A (Neg) Influenza Type B (PCR) Neg for Influ B (Neg) 07/23/18 Range/Units 22:11 WBC (4.8-10.8) K/uL RBC (4.2-5.4) M/uL Hgb (12.0-16.0) g/dL Hct (37-47) % MCV (80-100) fL MCH (25-34) pg MCHC (32-36) g/dL RDW Std Deviation (36.4-46.3) fL RDW Coeff of Joanna (11.5-14.5) % Plt Count (130-400) K/uL MPV (7.4-10.4) fL Immature Gran % (Auto) % Neut % (Auto) % Lymph % (Auto) % [place] % (Auto) % Eos % (Auto) % Baso % (Auto) % Immature Gran # (Auto) (0.00-0.02) K/uL Neut # (Auto) (1.4-6.5) K/uL Lymph # (Auto) (1.2-3.4) K/uL [place] # (Auto) (0.11-0.59) K/uL Eos # (Auto) (0-0.5) K/uL Baso # (Auto) (0-0.2) K/uL ABG pH (7.35-7.45) ABG pCO2 (35-46) mmHg ABG pO2 (80-95) mm/Hg ABG HCO3 (19-24) mmol/L ABG O2 Saturation (90-95) % ABG Base Excess (-9-1.8) mEq/L Shimon Test (Pos) Barometric Pressure mm/Hg Oxygen Given Sodium (136-145) mmol/L Potassium (3.5-5.1) mmol/L Chloride (98-107) mmol/L Carbon Dioxide (21-32) mmol/L Anion Gap (3-11) BUN (7-18) mg/dl Creatinine (0.6-1.2) mg/dl Est Cr Clr Drug Dosing Est GFR ( Amer) Est GFR (Non-Af Amer) BUN/Creatinine Ratio (10-20) Glucose (70-99) mg/dl Lactate (0.4-2.0) mmol/L Calcium (8.5-10.1) mg/dl Magnesium (1.8-2.4) mg/dl Total Bilirubin (0.2-1) mg/dl AST (15-37) U/L ALT (12-78) U/L Alkaline Phosphatase (45-117) U/L Ammonia (11-32) umol/L Total Creatine Kinase 88 (26-192) U/L Troponin I (0-0.045) ng/ml Total Protein (6.4-8.2) gm/dl Albumin (3.4-5.0) gm/dl Globulin (2.5-4.0) gm/dl Albumin/Globulin Ratio (0.9-2) TSH (0.300-4.500) uIu/ml Specimen Hemolysis Urine Color Urine Appearance (Clear) Urine pH (4.5-7.5) Ur Specific [place] (1.000-1.030) Urine Protein (Negative) Urine Glucose (UA) (Negative) Urine Ketones (Negative) Urine Blood (Negative) Urine Nitrite (Negative) Urine Bilirubin (Negative) Urine Urobilinogen (Negative) Ur Leukocyte Esterase (Negative) Urine RBC (0-4) /hpf Urine WBC (0-5) /hpf Ur Epithelial Cells (0-5) /lpf Urine Bacteria (Negative) Salicylates Urine Opiates Screen (Neg) Ur Methadone, Qual (Neg) Acetaminophen Urine Barbiturates (Neg) Ur Phencyclidine (PCP) (Neg) U Amphetamin/Meth Scrn (Neg) MDMA (Ecstasy) Screen (Neg) U Benzodiazepines Scrn (Neg) Ur Cocaine Metabolite (Neg) U Marijuana (THC) Screen (Neg) Influenza Type A (PCR) (Neg) Influenza Type B (PCR) (Neg) Imaging Data Radiologist's Impression: Radiology results as stated below per my review and the radiologist's interpretation: XR chest 1V portable HISTORY: weakness COMPARISON: None. FINDINGS: No pneumothorax. No pleural effusions. A few left basilar linear densities suggesting subsegmental atelectasis. The heart is borderline enlarged. Rotated study. Mild perihilar interstitial thickening which could be technical or represent mild congestive change. IMPRESSION: Mild perihilar interstitial thickening which could be technical or represent mild congestive change. Electronically signed by: Parmjit Chowdhury M.D. 07/23/2018 9:[address]AST CT DOSE: 537.48 mGy.cm HISTORY: Altered mental status. TECHNIQUE: Multiaxial CT images of the head were performed without the use of intravenous contrast. Automated exposure control was utilized for this study. A dose lowering technique was utilized adhering to the principles of ALARA. Comparison: None. Findings: The paranasal sinuses and mastoid air cells are clear. The calvarium and skull base are intact. There is no mass, hematoma, midline shift, acute infarct. White matter hypodensity is nonspecific but suggestive of microvascular ischemic change. The ventricles and sulci demonstrate mild age-related involutional changes. Impression: No acute intracranial abnormality. White matter hypodensity is nonspecific but suggestive of microvascular ischemic change. Electronically signed by: Parmjit Chowdhury M.D. 07/23/2018 9:18 PM KUB HISTORY: Distended abdomen. COMPARISON: None. FINDINGS: The bowel gas pattern is unremarkable. There are no dilated loops of small bowel to suggest an obstruction. No renal calculi. No ureteral calculi. No pneumoperitoneum or pneumatosis. S-shaped scoliosis of the thoracolumbar spine. IMPRESSION: Unremarkable bowel gas pattern. No evidence for bowel obstruction. Electronically signed by: Parmjit Chowdhury M.D. 07/23/2018 9:39 PM ECG Data Attestation: I personally reviewed and interpreted this ECG as follows: Indication: altered mental status Rate (beats per minute): 131 Rhythm: sinus tachycardia Findings: + other (QTc 584; nonspecific ST and T-wave abnormality; left atrial enlargement); no PAC and no PVC Blood Pressure Blood Pressure Findings: Elevated blood pressure Blood Pressure Disposition: further management by hospitalist [facility] Narrative This patient was evaluated and appeared to be acutely altered. Patient was not able to verbalize events preceding visit. Patient's states she began hallucinating suddenly. He is not clear as to whether or not she took extra medications. Patient was given 2 mg of IV Ativan as she presents such as an anticholinergic overdose. Patient does have dry mucous membranes, persistent sinus tachycardia, hypertension and is febrile. EKG confirms a sinus tachycardia. Patient was hydrated with normal saline solution. She had no alteration in her vital signs after the administration of Ativan. Patient became obtunded and required intubation. CT scan of the head was performed and is negative for acute intracranial abnormality. Please see my procedure note above. Patient was placed on a propofol drip with significant improvement of vital signs. Heart rate came down into the 108-115 range. Blood pressure improved tremendously to 140 systolic. Patient's was updated and brought back into the room. CT scan of the chest and abdomen was then added and does reveal a dilated gallbladder, likely acute cholecystitis versus cholangitis. This does explain the elevated liver enzymes and bilirubin however not the persistent tachycardia and hypertension with altered mental status. N- acetylcysteine was initiated as the acetaminophen intake is unknown. Tylenol and salicylate levels will be signed out due to the elevated bilirubin interference in the lab. IV ceftriaxone 2 g was ordered as the patient's temperature mateo to 39.1 rectally. Lactate is elevated at 4. IV Flagyl 500 mg was ordered to cover for the cholangitis. An attempt at lumbar puncture was made however the patient has significant scoliosis and postsurgical scarring. This attempt was unsuccessful. The case was discussed with Dr Jorge of ICU. Patient was also discussed with the hospitalist, Dr. Christian. A triple-lumen catheter was placed in the right femoral vein for additional IV access. Impression & Plan Anticholinergic drug overdose, Acute cholecystitis, Acute alteration in mental status, Hyperbilirubinemia Critical Care Time I have personally spent 90 minutes of critical care time in the direct management of this patient. This includes bedside care, interpretation of diagnostic studies, and testing, discussion with consultants, patient, and family members, and other required patient management activities. This 90 minutes is in excess of all separately billable procedures. Critical Care Time: Yes Total Critical Care Time: 90 Discharge Plan Visit Data *Final* Discharge Date/Time: 07/24/18 00:43 Chief Complaint: Altered Mental Status Stated Complaint: BACK PAIN Other Complaint: Back Injury/Pain ED Provider: Kamini Acosta Discharge Problem: Anticholinergic drug overdose, Acute cholecystitis, Acute alteration in mental status, Hyperbilirubinemia Patient Disposition: Admitted As Inpatient Discharge Instructions Interventions: ED Discharge Assessment Last Done: 07/24/18 00:43 Discharge Problem: Anticholinergic drug overdose Qualifiers: Encounter type: initial encounter Injury intent: undetermined intent Qualified Code(s): T44.3X4A - Poisoning by other parasympatholytics [anticholinergics and antimuscarinics] and spasmolytics, undetermined, initial encounter The scribe's documentation has been prepared under my direction and personally reviewed by me in its entirety. I confirm that the note above accurately reflects all work, treatment, procedures, and medical decision making performed by me.
[2018-07-23 22:50] LABS: Amphetamines+Metham, Urine Neg (Neg); Barbiturates, Urine Neg (Neg); Benzodiazepine, Urine Neg (Neg); Cocaine, Urine Neg (Neg); MDMA (Ecstacy), Urine Neg (Neg); Methadone, Urine Neg (Neg); Opiate, Urine Pos (Neg); Phencyclidine, Urine Neg (Neg)
[2018-07-23] MEDS ORDERED: OPTIRAY 320 125ml IV PRN (22:55)
[2018-07-23 22:58] LABS: Influenza A virus by PCR Neg for Influ A (Neg); Influenza B virus by PCR Neg for Influ B (Neg)
--- NOTE | 2018-07-23 23:03 | CT Scan Report ---
CHEST CTA for PULMONARY ARTERIES CT DOSE: 1804.00 mGy.cm HISTORY: Short of breath. TECHNIQUE: Multiaxial CT images of the chest were performed following the intravenous administration of contrast to evaluate the pulmonary arteries. Maximal intensity projection images were also obtaine d. A dose lowering technique was utilized adhering to the principles of ALARA. COMPARISON STUDY: None. FINDINGS: Normal caliber thoracic aorta with no evidence for dissection. No pleural or pericardial ef fusions. The endotracheal tube terminates 1.7 cm from the eva. The main pulmonary artery is dilate d up to 3.1 cm. This is consistent with pulmonary hypertension. Dextroscoliosis of the thoracic spine . Nasogastric tube terminates in the stomach. Small hiatus hernia. Fluid within the nondistended esop hagus. Suboptimal evaluation of the segmental and subsegmental pulmonary arteries within the lungs du e to the motion artifact. However, no definite filling defects within the pulmonary arteries to sugge st pulmonary embolus. No mediastinal or hilar lymphadenopathy. No fractures within the visualized oss eous structures. No pneumothorax. Small amount of mucoid material within the mainstem bronchi. Patchy and linear densities within the lungs posteriorly. IMPRESSION: 1. No evidence for pulmonary embolus with limitations as described above. 2. Patchy and linear densities within the lungs posteriorly. This favors atelectasis. A pneumonia cou ld also have a similar appearance. 3. Satisfactory support line placement. 4. Mild pulmonary hypertension. 5. Dextroscoliosis of the thoracic spine. 6. Small hiatus hernia. Electronically signed by: Parmjit Chowdhury M.D. 07/23/2018 11:02 PM
--- NOTE | 2018-07-23 23:11 | CT Scan Report ---
ABDOMEN AND PELVIS CT WITH IV CONTRAST CT DOSE: HISTORY: elevated liver enzymes/bili TECHNIQUE: Multiaxial CT images of the abdomen and pelvis were performed following the use of intrave nous contrast. A dose lowering technique was utilized adhering to the principles of ALARA. COMPARISON STUDY: None. FINDINGS: Bibasilar densities are better appreciated on the same day chest CT. Nasogastric tube termi nates in the distal stomach. Small fluid-filled hiatus hernia. No pneumoperitoneum. No pneumatosis. N o fractures within the visualized osseous structures. No hepatic or splenic masses. The adrenal gland s, pancreas, and kidneys are unremarkable. There is moderate intra and extra hepatic bile duct dilata tion. The common bile duct measures up to 1.4 cm in diameter. No definite stone identified within the common bile duct by CT. There is mild enhancement of the wall of the common bile duct. The gallbladd er wall also demonstrates mild enhancement. There is trace pericholecystic fluid. The gallbladder is mildly distended. No retroperitoneal lymphadenopathy. The bladder is completely decompressed by a Fol ey catheter. The uterus is surgically absent. A few colonic diverticula. No evidence for diverticulit is. No bowel wall thickening or obstruction. Normal appendix. There is a 2 cm fat-containing lesion w ithin the left ovary. Therefore, this is consistent with a dermoid. IMPRESSION: 1. Moderate intra and extrahepatic bile duct dilatation with enhancement of the wall of the common bi le duct and gallbladder. There is also trace pericholecystic fluid. Therefore, this could represent a n acute cholecystitis or ascending cholangitis. 2. Nasogastric tube terminates in the stomach. 3. There is a 2 cm fat-containing lesion within the left ovary. Therefore, this is consistent with a dermoid. Electronically signed by: Parmjit Chowdhury M.D. 07/23/2018 11:10 PM
[2018-07-23] MEDS ORDERED: PROPOFOL 1,000 MG/100 ML VIAL IV ONE (23:22)
[2018-07-23] MEDS ORDERED: metroNIDAZOLE 500 MG/100 ML BAG IV STA (23:23)
[2018-07-23] MEDS: PROPOFOL 1,000 MG/100 ML VIAL IV PRN (23:25)
[2018-07-24 00:18] LABS: INR 1.2 (0.9-1.1); Partial Thromboplastin Time 27.3 Seconds (21.0-31.0); Prothrombin Time 11.7 Seconds (9.0-12.0)
[2018-07-24] MEDS ORDERED: SODIUM CHLORIDE 0.9% 1000ML 1,000 ML IV SCH (01:05)
[2018-07-24] MEDS ORDERED: VANCOMYCIN CONSULT ACTIVE PRN (01:05)
[2018-07-24] MEDS ORDERED: ICU PROTOCOL FOR HYPERGLYCEMIA PRN (01:05)
[2018-07-24] MEDS ORDERED: VANCOMYCIN HCL 1,000 MG in SODIUM CHLORIDE 0.9% 250 ML IV SCH (01:05)
[2018-07-24] MEDS ORDERED: CEFEPIME CONSULT ACTIVE PRN (01:22)
[2018-07-24] MEDS ORDERED: VANCOMYCIN HCL 2,250 MG in SODIUM CHLORIDE 0.9% 500 ML IV SCH (01:30)
[2018-07-24] MEDS: CEFEPIME 2,000 MG in SYRINGE 7.5 ML IV SCH ×3 (01:53→17:25)
[2018-07-24] MEDS ORDERED: KETOROLAC TROMETHAMINE 15 MG/ML VIAL IV ONE (01:56)
[2018-07-24] MEDS: SODIUM CHLORIDE 0.9% 1000ML 1,000 ML IV SCH ×4 (02:20→21:28)
[2018-07-24] MEDS: HYDROmorphone INJ 1 MG/ML SYRINGE IV PRN ×3 (02:39→12:08)
--- NOTE | 2018-07-24 02:45 | History and Physical Report ---
DATE OF ADMISSION: 07/23/2018 CHIEF COMPLAINT: Severe sepsis. HISTORY OF PRESENT ILLNESS: This is a 62-year-old female with past medical history significant for hypertension, hyperlipidemia, fibromyalgia, major depression, kyphoscoliosis, chronic pain, presents with altered mental status. The patient lives with her . As per patient has chronic back pain since last 20years and her family doctor is trying to cut back on her pain medications since last 2 years. He does not know when the last cut back on the medication happened, but she complains of chronic back pain and she is trying to compensate her reduced pain medication with [id number] medications; the patient is taking Tylenol PM. She complained of lower back pain and belly pain since yesterday evening and this happens sometimes and the patient today morning, complained lot of pain and he just watched because he could do not do much, but later in the day, she started to get confused when he brought the patient to the hospital. In the hospital, the patient was somewhat confused and tachycardic, temp spiked, and there is elevated white count. Lactic acid was 4.2, elevated total bilirubin and AST and ALT, alkaline phosphatase. Ammonia level was normal. Troponin was negative. TSH was okay.There was question of anticholinergic overdose as the patient was taking [id number], Tylenol PM. We do not know how much she took, so the patient got intubated and CT imaging studies were done; CTA of the chest and CT of the abdomen and pelvis and CT of the head. CT of the abdomen and pelvis showed intra and extrahepatic biliary duct dilatation. No obvious gallstones, but the question of cholecystitis versus ascending cholangitis. The ER physician tried to do a lumbar puncture but because of her kyphoscoliosis, it was difficult, and also based on the CT scan findings it seemed more of gall bladder infection.Notified GI and also talked to the lift driver. We could not get a Tylenol level because of elevated bilirubin and in the ER and acetylcysteine antidote was started. She is also status post right femoral central line and also has peripheral lines and also NG tube . The patient is still tachycardic, but resting comfortably. Received 2 liters IV fluids in the ER, blood pressure is okay. ALLERGIES: BACTRIM AND IBUPROFEN. PAST MEDICAL HISTORY: As mentioned above. PAST SURGICAL HISTORY: Bladder surgery W/cryosurgery, partial hysterectomy. MEDICATIONS: The patient is on MS Contin 60 mg p.o. b.i.d., Percocet 5/325 mg 1 tablet p.o. b.i.d. p.r.n., simvastatin 10 mg p.o. at bedtime, promethazine 25 mg p.o. q. 8 hours p.r.n., lisinopril 10 mg p.o. daily, omeprazole 20 mg p.o. daily, scopolamine patch every 3 days while traveling, gabapentin 100 mg p.o. t.i.d., omega 3 fish oil t.i.d., Tylenol Extra Strength 500 mg as needed. FAMILY HISTORY: Significant for mother who has lung and breast cancer at age of 76. Mother has ulcerative colitis. Father had MO at age of 60. Aunt has breast cancer. Maternal grandmother has breast cancer. SOCIAL HISTORY: , lives with her . She quit smoking in 1989. Prior to that smoked 1 pack a day for 20 years. Alcohol social. No drug use. REVIEW OF SYSTEMS: Currently unobtainable. PHYSICAL EXAMINATION: GENERAL: The patient is status post intubated and sedated. VITAL SIGNS: Temperature T-max 39.1, pulse in the 120s, respiratory rate 16, blood pressure 136/78, oxygen 97% on vent. HEENT: No pallor. Pupils are sluggish to react. NECK: No obvious neck masses seen. CARDIOVASCULAR: S1, S2 heard. Tachycardia. No murmurs. RESPIRATORY SYSTEM: Normal AP diameter. No accessory muscle use. No wheezing, no crackles. ABDOMEN: Soft. No distention seen. CENTRAL NERVOUS SYSTEM: Status post intubated and sedated. EXTREMITIES: No edema, no erythema. LABS: WBC 17.1, hemoglobin 14.6, hematocrit 41.3, platelets 169. ABG: pH of 7.3, pCO2 of 34, pO2 of 108, bicarb 19, oxygen 97% on 4 liters. Sodium 135, potassium 3.9, chloride 101, bicarbonate 22, BUN 15, creatinine 1.08, serum glucose 211. Lactate 4.2, calcium 9.5, magnesium 1.7, total bilirubin 4.7, AST 307, ALT 322, alkaline phosphatase 195. Ammonia 19.9, total creatinine kinase 88. Troponin I less than 0.015. TSH 0.4. Urinalysis positive for protein, ketones trace, bilirubin +2. Urine drug screen negative for opiates and negative so far, could not get Tylenol level because of elevated bilirubin. Influenza A and B negative. CTA of the chest, no evidence of pulmonary embolus.Patchy and linear densities within the lungs posteriorly. This favors atelectasis.Pneumonia could have similar appearance. dextroscoliosis of the thoracic spine, mild pulmonary hypertension. CT of abdomen and pelvis, moderate intra and extrahepatic bile duct dilatation with enhancement of the zambrano of the common bile duct and gallbladder. There is also trace pericholecystic fluid. Therefore, this could represent an acute cholecystitis or ascending cholangitis. 2 cm fat containing lesion within left ovary; therefore, it is consistent with a dermoid, appear to be unremarkable. Head CT, no acute intracranial abnormality. Chest x-ray: Mild perihilar interstitial thickening which could be technical or represent mild congestive change. EKG: Sinus tachycardia, rate of 131. Nonspecific ST-T wave abnormality seen. ASSESSMENT AND PLAN: This is a 62-year-old female who presents with altered mental status, found to be in severe sepsis possibly from cholecystitis versus ascending cholangitis. 1. Severe sepsis, possible ascending cholangitis/ cholecystitis, having temperature spike, tachycardia, elevated white count. Lactic acid 4.2. Elevated LFTs with total bilirubin of 4.7. CAT scan of the abdomen and pelvis is showing intra and extrahepatic biliary duct dilatation and enhancement of gallbladder and CBD, but no stones identified. Possible cholecystitis with ascending cholangitis. A CT of the head and CTA of the chest were unremarkable. The ER physician also tried to do lumbar puncture but could not do it because of kyphoscoliosis, possible Tylenol toxicity or anticholinergic toxicity as the patient was taking Tylenol PM at home. As per , he does not know how much she took. . The patient is getting IV n-acetylcysteine.Status post right femoral line and peripheral lines, status post intubation for airway protection and also for possible anticholinergic drug overdose. But now, we are treating for fever, severe sepsis because of the above findings. Starting her on IV cefepime, IV Flagyl, IV vancomycin. Follow the blood cultures. GI notified. Follow the repeat lactic acids. We will repeat labs. The lift driver notified. Vent management as per critical care. Closely monitor in the ICU.If decompensates plan for emergent ERCP. 2. Chronic pain. Has chronic back pain for last 20 years. Last two years the family doctor was trying to cut back her pain medications. The does not know when was the last time the medications were reduced. Currently on OxyContin 60 mg p.o. b.i.d. and Percocet b.i.d. p.r.n. which the patient did not take. We will place her on IV Dilaudid p.r.n. 3. Hx of Hypertension.Currently in Severe sepsis, so we will hold lisinopril. 4. Gastroesophageal reflux disease. We will place on IV Pepcid. 5. Hyperlipidemia. Holding statin for now. We will restart her home medication whenever the patient is able to take. 6. Dermoid cyst left ovary. Followup. 7. Deep vein thrombosis prophylaxis, sequential compression devices for now. 8. Disposition: Closely monitor in the ICU. Level 1 full code. Total critical care time 60 minutes. Addendum: Am labs showed lactic acid 3.7. Bilirubin and AST,ALT and alk phosp trending down. But hypotensive even after fluid bolus.Tachycardia improved. Notified GI. Plan for emergent ercp. starting on Levophed drip. notified about the procedure. Close monitor MTDD
[2018-07-24 03:16] LABS: Hemoglobin 11.4 g/dL (12.0-16.0); Immature Granulocytes # (auto) 0.08 K/uL (0.00-0.02); Immature Granulocytes % (auto) 0.9 %; Lymphocytes # (auto) 0.61 K/uL (1.2-3.4); Lymphocytes % (auto) 6.9 %; Mean Corpuscular Hgb Conc 33.5 g/dL (32-36); Mean Corpuscular Volume 88.1 fL (80-100); Mean Platelet Volume 10.9 fL (7.4-10.4); Monocytes % (auto) 4.5 %; Neutrophils # (auto) 7.74 K/uL (1.4-6.5); Neutrophils % (auto) 87.7 %; Platelet Count 113 K/uL (130-400); RDW Coefficient of Variation 12.9 % (11.5-14.5); RDW Standard Deviation 41.6 fL (36.4-46.3); Red Blood Count 3.86 M/uL (4.2-5.4); White Blood Count 8.83 K/uL (4.8-10.8)
[2018-07-24 03:23] LABS: INR 1.5 (0.9-1.1); Prothrombin Time 14.6 Seconds (9.0-12.0)
[2018-07-24] MEDS ORDERED: ACETYLCYSTEINE IV ONE (03:26)
[2018-07-24] MEDS ORDERED: DEXTROSE 5% IV ONE (03:26)
[2018-07-24 03:34] LABS: Albumin Level 2.4 gm/dl (3.4-5.0); BUN Creatinine Ratio 16.7 (10-20); Calcium 7.6 mg/dl (8.5-10.1); Creatinine Clr Calc Pharmacy 75.3 ml/min
[2018-07-24 03:44] LABS: Bilirubin Direct 2.7 mg/dl (0-0.2); Bilirubin,Total 3.9 mg/dl (0.2-1); Phosphorus 0.9 mg/dl (2.5-4.9); Total Protein 5.1 gm/dl (6.4-8.2)
[2018-07-24 03:45] LABS: Potassium 3.1 mmol/L (3.5-5.1)
[2018-07-24] MEDS ORDERED: POTASSIUM PHOS 3 MMOL/1 ML INFUSION IV STA (03:59)
[2018-07-24] MEDS ORDERED: DEXTROSE 50% 50 ML SYRINGE IV PRN (04:15)
[2018-07-24] MEDS ORDERED: SODIUM CHLORIDE 0.9% 500 ML IV SCH (04:15)
[2018-07-24] MEDS ORDERED: GLUCOSE 40% GEL 15 GM TUBE PO PRN (04:15)
[2018-07-24] MEDS ORDERED: GLUCAGON FOR INJ 1 MG VIAL SQ PRN (04:15)
[2018-07-24] MEDS ORDERED: POTASSIUM PHOSPHATE 30 MMOL in SODIUM CHLORIDE 0.9% 500 ML IV ONE (04:15)
[2018-07-24] MEDS ORDERED: GLUCOSE 10 TABS/TUBE PO PRN (04:15)
[2018-07-24] MEDS ORDERED: CARBOHYDRATES FOR HYPOGLYCEMIA PO PRN (04:15)
[2018-07-24] MEDS: POTASSIUM CHLORIDE / WTR 10 MEQ/100 ML PLCT IV SCH ×4 (04:23→08:34)
[2018-07-24] MEDS ORDERED: ALBUMIN HUMAN 5% 12.5 GM/250 ML VIAL IV ONE (04:44)
[2018-07-24] MEDS ORDERED: NOREPINEPHRINE BIT INJ 8 MG in DEXTROSE 5% 500 ML IV PRN (04:45)
[2018-07-24] MEDS ORDERED: MIDAZOLAM HCL 1 MG/ML 2ML VIAL ONE ×2 (04:47→05:54)
[2018-07-24] MEDS ORDERED: ROCURONIUM BROMIDE 10 MG/ML 5 ML VIAL ONE (04:47)
[2018-07-24] MEDS ORDERED: PHENYLEPHRINE HCL 10 MG/ML VIAL ONE (04:47)
--- NOTE | 2018-07-24 04:59 | Anesthesiology Consultation ---
Date of Service July 24, 2018 Assessment & Plan (1) Encounter for pre-operative examination: Chart Review Chart Review: Acceptable Risk for Surgery and Patient NOT seen in Pre Admission Testing Consults Requested none History Surgery Operation Date: 07/24/18 05:10 Proposed Procedures p Endoscopic Retrograde Cholangiopancreato - Dominick Saavedra MD Height/Weight Height: 5 ft 8 in Weight: 85.8 kg Allergies Allergy/AdvReac Type Severity Reaction Status Date / Time sulfamethoxazole Allergy Rash Verified 07/23/18 22:25 [From Bactrim] trimethoprim [From Bactrim] Allergy Rash Verified 07/23/18 22:25 IBUPROFEN Allergy Unknown GASTRIC Uncoded 07/23/18 22:25 SYMPTOMS Medications Home Medications Medication Instructions Recorded Confirmed Last Taken Sleep Aid Tab 1 tab PO HS PRN 07/23/18 07/23/18 Unknown acetaminophen [Tylenol Extra 500 mg PO Q6H PRN 07/23/18 07/23/18 Unknown Strength] gabapentin [Neurontin] 100 mg PO TID 07/23/18 07/23/18 Unknown lisinopril 10 mg PO DAILY 07/23/18 07/23/18 Unknown morphine [MS Contin] 60 mg PO Q12 07/23/18 07/23/18 Unknown omega [id number] oil [Rousseau-3] 1 cap PO TID 07/23/18 07/23/18 Unknown omeprazole 20 mg PO DAILY 07/23/18 07/23/18 Unknown oxycodone-acetaminophen [Percocet] 1 tab PO BID PRN 07/23/18 07/23/18 Unknown promethazine 25 mg PO Q8 PRN 07/23/18 07/23/18 Unknown scopolamine base [Transderm-Scop] 1 patch TOPICAL .UD WHEN TRAVELING 07/23/18 07/23/18 Unknown simvastatin [Zocor] 10 mg PO DAILY 07/23/18 07/23/18 Unknown Active Medications Generic Name Dose Route Start Last Admin Trade Name Freq PRN Reason Stop Dose Admin Hydromorphone HCl 1 mg 07/24/18 01:05 07/24/18 02:39 Dilaudid IV 08/07/18 01:04 1 mg Q3H PRN Administration Pain Propofol 1,000 mg in 100 mls @ 26.85 mls/hr 07/23/18 23:30 07/24/18 02:40 Diprivan IV 07/26/18 23:21 50 mcg/kg/min .Q3H44M PRN 26.9 mls/hr TITRATE Titration Protocol 50 MCG/KG/MIN Sodium Chloride 1,000 mls @ 200 mls/hr 07/24/18 01:05 07/24/18 02:20 Nss 1000ml IV 08/23/18 01:04 200 mls/hr .Q5H TRELL Administration Cefepime HCl 2,000 mg/ Syringe 20 mls @ 5.5 mls/min 07/24/18 02:00 07/24/18 01:53 IV 08/03/18 01:59 5.5 mls/min Q8H TRELL Administration Protocol Potassium Chloride 10 meq in 100 mls @ 100 mls/hr 07/24/18 04:01 07/24/18 04:23 K Devante / Wtr IV 07/24/18 08:00 100 mls/hr Q1H TRELL Administration Potassium Phosphate 30 mmol/ 510 mls @ 88 mls/hr 07/24/18 04:15 07/24/18 04:19 Sodium Chloride IV 07/24/18 10:02 88 mls/hr ONE ONE Administration Sodium Chloride 500 mls @ 500 mls/hr 07/24/18 04:15 07/24/18 04:20 Nss IV 07/24/18 05:14 500 mls/hr .Q1H TRELL Administration Past Medical History Medical History Scoliosis Chronic pain syndrome ER course 0001 07/24/2018: the hospital, the patient was somewhat confused and tachycardic, temp spiked, and there is elevated white count. Lactic acid was 4.2, elevated total bilirubin and AST and ALT, alkaline phosphatase. Ammonia level was normal. Troponin was negative. TSH was okay and there was question of anticholinergic overdose the patient was taking [id number], Tylenol PM. We do not know how much she took, so the patient got intubated and CT imaging studies were done; CT of the chest and CT of the abdomen and pelvis and CT of the head. CT of the abdomen and pelvis showed intra and extrahepatic biliary duct dilatation. No obvious gallstones, but the question of cholecystitis versus ascending cholangitis. The ER physician tried to do a lumbar puncture but because of her kyphoscoliosis, it was difficult, and also based on the CT scan findings, notified GI and also talked to the hand lens polisher. We could not get a Tylenol level because of elevated bilirubin while in the ER and acetylcystine antidote was started. She is also status post right femoral central line and also has peripheral lines and also NG tube ____. The patient is still tachycardic, but resting comfortably. Aggressive 2 liters IV fluids in the ER, blood pressure is okay. Exercise / Class Metabolic Activity II 4-5 Yardwork/Stairs/Walk up hill Past Surgical History Surgical History History of back surgery Past Anesthesia History No Hx of Anesthesia Complications and No Family Hx of Anesthesia Complications History of PONV No Hx of PONV and No Hx of Motion Sickness Social History Smoking Status: Former smoker Hx Alcohol Use: Yes Alcohol type: wine alcohol intake frequency: holidays/special occasions only Hx Substance Use: No Physical Exam Vital Signs Last Vital Signs Temp 38.9 C H 07/24/18 04:00 Pulse 94 H 07/24/18 04:00 Resp 20 07/24/18 04:00 BP 87/44 L 07/24/18 04:00 Pulse Ox 97 07/24/18 04:00 Testing Laboratory Results 07/24/18 03:06 07/24/18 03:06 07/23/18 07/23/18 07/24/18 21:55 23:53 03:06 PT 11.7 14.6 H INR 1.2 H 1.5 H APTT 27.3 Urine Color Yellow Urine Appearance Clear Urine pH 6.0 Ur Specific [place] 1.015 Urine Protein 1+ H Urine Glucose (UA) 2+ H Urine Ketones Trace H Urine Nitrite Negative Ur Leukocyte Esterase Negative Urine RBC 0-4 Urine WBC 0-5 Ur Epithelial Cells 0-5
--- NOTE | 2018-07-24 05:10 | Gastrointestinal Consultation ---
Date of Consultation July 24, 2018 Assessment & Plan (1) Hyperbilirubinemia: Highly likely acute cholangitis. Will plan for urgent ERCP. I explained the risk benefit and alternatives to the who consented. Patient is currently on vasopressors. (2) Cholangitis: History of Present Illness Attending Physician: Hayley Argueta DO 62 years old female patient presented with abdominal pain and found with progressive AMS and severe sepsis requiring endotracheal intubation, labs showed elevated bilirubin, CT scan showed dilated CBD to 14 mm with wall enhancement suggestive of Cholangitis. unable to obtain more details due to patient sedation. Allergies Allergy/AdvReac Type Severity Reaction Status Date / Time sulfamethoxazole Allergy Rash Verified 07/23/18 22:25 [From Bactrim] trimethoprim [From Bactrim] Allergy Rash Verified 07/23/18 22:25 IBUPROFEN Allergy Unknown GASTRIC Uncoded 07/23/18 22:25 SYMPTOMS Home Medications Home Medications Medication Instructions Recorded Confirmed Type Sleep Aid Tab 1 tab PO HS PRN 07/23/18 07/23/18 History acetaminophen [Tylenol Extra 500 mg PO Q6H PRN 07/23/18 07/23/18 History Strength] gabapentin [Neurontin] 100 mg PO TID 07/23/18 07/23/18 History lisinopril 10 mg PO DAILY 07/23/18 07/23/18 History morphine [MS Contin] 60 mg PO Q12 07/23/18 07/23/18 History omega 4-lct-vmg-fish oil [[place]-3] 1 cap PO TID 07/23/18 07/23/18 History omeprazole 20 mg PO DAILY 07/23/18 07/23/18 History oxycodone-acetaminophen [Percocet] 1 tab PO BID PRN 07/23/18 07/23/18 History promethazine 25 mg PO Q8 PRN 07/23/18 07/23/18 History scopolamine base [Transderm-Scop] 1 patch TOPICAL .UD WHEN TRAVELING 07/23/18 07/23/18 History simvastatin [Zocor] 10 mg PO DAILY 07/23/18 07/23/18 History Patient History Medical History Scoliosis Chronic pain syndrome Surgical History History of back surgery Social History Preferred Language: Moldovan Beliefs That Will Affect Care: None Current Living Situation: Spouse Feels Safe at Home: Yes Smoking Status: Former smoker Hx Alcohol Use: Yes Alcohol type: wine Hx Substance Use: No Review of Systems Review of Systems: Unobtainable due to endotracheal tube Physical Exam Constitutional: comfortable and + mechanically ventilated; no acute distress Respiratory: normal respiratory effort, lungs clear to auscultation Cardiovascular: RRR, no murmur, no edema Gastrointestinal (Abdomen): normal bowel sounds, soft, nontender, no hepatosplenomegaly Results & Data Vital Signs (Past 12 Hours) Vital Signs Temp Pulse Pulse Resp BP BP Pulse Ox 07/24/18 04:00 38.9 C H 94 H 20 87/44 L 97 07/24/18 03:00 100 H 21 84/43 L 97 07/24/18 02:00 102 H 105 H 20 128/61 98 07/24/18 01:21 39.3 C H 106 H 21 101/66 92 07/24/18 01:05 39.3 C H 108 H 20 101/66 96 07/24/18 00:50 39.1 C H 07/24/18 00:31 124 H 172/75 H 97 07/24/18 00:16 125 H 178/75 H 98 07/24/18 00:10 117 H 98 07/24/18 00:01 133 H 147/78 H 98 07/24/18 00:00 115 H 98 07/23/18 23:50 122 H 97 07/23/18 23:46 117 H 146/71 H 97 07/23/18 23:41 114 H 153/69 H 98 07/23/18 23:40 110 H 16 97 07/23/18 23:30 118 H 97 07/23/18 23:20 98 07/23/18 23:10 98 07/23/18 23:00 121 H 100 07/23/18 22:30 118 H 96 07/23/18 22:21 123 H 136/78 95 07/23/18 22:20 125 H 97 07/23/18 22:17 122 H 97 07/23/18 22:16 124 H 146/80 H 95 07/23/18 22:11 129 H 147/93 H 97 07/23/18 22:10 132 H 96 07/23/18 22:07 136 H 194/84 H 96 07/23/18 22:01 139 H 208/99 H 97 07/23/18 22:00 39.1 C H 138 H 97 07/23/18 21:56 138 H 172/101 H 98 07/23/18 21:51 137 H 227/97 H 100 07/23/18 21:50 145 H 99 07/23/18 21:46 147 H 258/105 H 100 07/23/18 21:43 127 H 19 97 07/23/18 21:42 132 H 169/112 H 100 07/23/18 21:41 132 H 187/89 H 99 07/23/18 21:40 130 H 99 07/23/18 21:30 130 H 25 H 07/23/18 21:20 132 H 37 H 93 07/23/18 21:10 132 H 36 H 93 07/23/18 21:08 134 H 34 H 93 07/23/18 20:53 133 H 18 176/105 H 96 07/23/18 20:50 129 H 34 H 94 07/23/18 20:42 134 H 28 H 176/105 H 95 07/23/18 20:40 135 H 21 97 07/23/18 20:30 135 H 22 96 07/23/18 20:20 123 H 26 H 95 07/23/18 20:10 130 H 32 H 94 07/23/18 20:06 130 H 21 95 07/23/18 19:58 135 H 27 H 156/106 H 95 07/23/18 19:49 37.8 C H 133 H 22 171/84 H 92 Pulse Ox 07/24/18 04:00 07/24/18 03:00 07/24/18 02:00 07/24/18 01:21 07/24/18 01:05 96 07/24/18 00:50 07/24/18 00:31 07/24/18 00:16 07/24/18 00:10 07/24/18 00:01 07/24/18 00:00 07/23/18 23:50 07/23/18 23:46 07/23/18 23:41 07/23/18 23:40 07/23/18 23:30 07/23/18 23:20 07/23/18 23:10 07/23/18 23:00 07/23/18 22:30 07/23/18 22:21 07/23/18 22:20 07/23/18 22:17 07/23/18 22:16 07/23/18 22:11 07/23/18 22:10 07/23/18 22:07 07/23/18 22:01 07/23/18 22:00 07/23/18 21:56 07/23/18 21:51 07/23/18 21:50 07/23/18 21:46 07/23/18 21:43 07/23/18 21:42 07/23/18 21:41 07/23/18 21:40 07/23/18 21:30 07/23/18 21:20 07/23/18 21:10 07/23/18 21:08 07/23/18 20:53 07/23/18 20:50 07/23/18 20:42 07/23/18 20:40 07/23/18 20:30 07/23/18 20:20 07/23/18 20:10 07/23/18 20:06 07/23/18 19:58 07/23/18 19:49 Laboratory Results Laboratory Results - last 24 hr 07/23/18 07/23/18 07/23/18 20:33 20:33 21:33 WBC 17.13 H RBC 4.65 Hgb 14.6 Hct 41.3 MCV 88.8 MCH 31.4 MCHC 35.4 RDW Std Deviation 40.7 RDW Coeff of Joanna 12.7 Plt Count 169 MPV 11.2 H Immature Gran % (Auto) 0.6 Neut % (Auto) 91.5 Lymph % (Auto) 3.3 [place] % (Auto) 4.5 Eos % (Auto) 0.0 Baso % (Auto) 0.1 Immature Gran # (Auto) 0.10 H Neut # (Auto) 15.69 H Lymph # (Auto) 0.56 L [place] # (Auto) 0.77 H Eos # (Auto) 0.00 Baso # (Auto) 0.01 PT INR APTT PTT Ratio ABG pH ABG pCO2 ABG pO2 ABG HCO3 ABG O2 Saturation ABG Base Excess Shimon Test Barometric Pressure Oxygen Given Sodium 135 L Potassium 3.9 Chloride 101 Carbon Dioxide 22 Anion Gap 12.0 H BUN 15 Creatinine 1.08 Est Cr Clr Drug Dosing Not Reportable Est GFR ( Amer) 64.2 Est GFR (Non-Af Amer) 55.4 BUN/Creatinine Ratio 13.6 Glucose 211 H Estimat Average Glucose Hemoglobin A1c Lactate 4.2 H* Calcium 9.5 Phosphorus Magnesium 1.7 L Total Bilirubin 4.7 H Direct Bilirubin AST 307 H ALT 322 H Alkaline Phosphatase 195 H Ammonia Total Creatine Kinase Troponin I < 0.015 Total Protein 7.5 Albumin 3.7 Globulin 3.8 Albumin/Globulin Ratio 1.0 Lipase TSH 0.411 Specimen Hemolysis Urine Color Urine Appearance Urine pH Ur Specific [place] Urine Protein Urine Glucose (UA) Urine Ketones Urine Blood Urine Nitrite Urine Bilirubin Urine Urobilinogen Ur Leukocyte Esterase Urine RBC Urine WBC Ur Epithelial Cells Urine Bacteria Nasal Screen MRSA (PCR) Salicylates Urine Opiates Screen U Codeine Confrm GC/MS Ur Morphine (GC/MS) Ur Hydrocodone (GC/MS) Ur Norhydrocodone Ur Noroxycodone Urine Oxycodone (GC/MS) U Oxymorphone GC/MS Ur Methadone, Qual Ur Hydromorphone (GC/MS) Acetaminophen Urine Barbiturates Ur Phencyclidine (PCP) U Amphetamin/Meth Scrn MDMA (Ecstasy) Screen U Benzodiazepines Scrn Ur Cocaine Metabolite U Marijuana (THC) Screen Ethyl Alcohol mg/dL Influenza Type A (PCR) Influenza Type B (PCR) Miscellaneous Test Miscellaneous Test 2 07/23/18 07/23/18 07/23/18 21:33 21:33 21:33 WBC RBC Hgb Hct MCV MCH MCHC RDW Std Deviation RDW Coeff of Joanna Plt Count MPV Immature Gran % (Auto) Neut % (Auto) Lymph % (Auto) [place] % (Auto) Eos % (Auto) Baso % (Auto) Immature Gran # (Auto) Neut # (Auto) Lymph # (Auto) [place] # (Auto) Eos # (Auto) Baso # (Auto) PT INR APTT PTT Ratio ABG pH ABG pCO2 ABG pO2 ABG HCO3 ABG O2 Saturation ABG Base Excess Shimon Test Barometric Pressure Oxygen Given Sodium Potassium Chloride Carbon Dioxide Anion Gap BUN Creatinine Est Cr Clr Drug Dosing Est GFR ( Amer) Est GFR (Non-Af Amer) BUN/Creatinine Ratio Glucose Estimat Average Glucose Hemoglobin A1c Lactate Calcium Phosphorus Magnesium Total Bilirubin Direct Bilirubin AST ALT Alkaline Phosphatase Ammonia 19.9 Total Creatine Kinase Troponin I Total Protein Albumin Globulin Albumin/Globulin Ratio Lipase TSH Specimen Hemolysis Urine Color Urine Appearance Urine pH Ur Specific [place] Urine Protein Urine Glucose (UA) Urine Ketones Urine Blood Urine Nitrite Urine Bilirubin Urine Urobilinogen Ur Leukocyte Esterase Urine RBC Urine WBC Ur Epithelial Cells Urine Bacteria Nasal Screen MRSA (PCR) Salicylates Cancelled Urine Opiates Screen U Codeine Confrm GC/MS Ur Morphine (GC/MS) Ur Hydrocodone (GC/MS) Ur Norhydrocodone Ur Noroxycodone Urine Oxycodone (GC/MS) U Oxymorphone GC/MS Ur Methadone, Qual Ur Hydromorphone (GC/MS) Acetaminophen Cancelled Urine Barbiturates Ur Phencyclidine (PCP) U Amphetamin/Meth Scrn MDMA (Ecstasy) Screen U Benzodiazepines Scrn Ur Cocaine Metabolite U Marijuana (THC) Screen Ethyl Alcohol mg/dL Influenza Type A (PCR) Influenza Type B (PCR) Miscellaneous Test Pending Miscellaneous Test 2 Pending 07/23/18 07/23/18 07/23/18 21:55 21:55 21:55 WBC RBC Hgb Hct MCV MCH MCHC RDW Std Deviation RDW Coeff of Joanna Plt Count MPV Immature Gran % (Auto) Neut % (Auto) Lymph % (Auto) [place] % (Auto) Eos % (Auto) Baso % (Auto) Immature Gran # (Auto) Neut # (Auto) Lymph # (Auto) [place] # (Auto) Eos # (Auto) Baso # (Auto) PT INR APTT PTT Ratio ABG pH ABG pCO2 ABG pO2 ABG HCO3 ABG O2 Saturation ABG Base Excess Shimon Test Barometric Pressure Oxygen Given Sodium Potassium Chloride Carbon Dioxide Anion Gap BUN Creatinine Est Cr Clr Drug Dosing Est GFR ( Amer) Est GFR (Non-Af Amer) BUN/Creatinine Ratio Glucose Estimat Average Glucose Hemoglobin A1c Lactate Calcium Phosphorus Magnesium Total Bilirubin Direct Bilirubin AST ALT Alkaline Phosphatase Ammonia Total Creatine Kinase Troponin I Total Protein Albumin Globulin Albumin/Globulin Ratio Lipase TSH Specimen Hemolysis Urine Color Yellow Urine Appearance Clear Urine pH 6.0 Ur Specific [place] 1.015 Urine Protein 1+ H Urine Glucose (UA) 2+ H Urine Ketones Trace H Urine Blood Trace H Urine Nitrite Negative Urine Bilirubin 2+ H Urine Urobilinogen Negative Ur Leukocyte Esterase Negative Urine RBC 0-4 Urine WBC 0-5 Ur Epithelial Cells 0-5 Urine Bacteria Negative Nasal Screen MRSA (PCR) Salicylates Urine Opiates Screen Pos H U Codeine Confrm GC/MS Pending Ur Morphine (GC/MS) Pending Ur Hydrocodone (GC/MS) Pending Ur Norhydrocodone Pending Ur Noroxycodone Pending Urine Oxycodone (GC/MS) Pending U Oxymorphone GC/MS Pending Ur Methadone, Qual Neg Ur Hydromorphone (GC/MS) Pending Acetaminophen Urine Barbiturates Neg Ur Phencyclidine (PCP) Neg U Amphetamin/Meth Scrn Neg MDMA (Ecstasy) Screen Neg U Benzodiazepines Scrn Neg Ur Cocaine Metabolite Neg U Marijuana (THC) Screen Neg Ethyl Alcohol mg/dL Influenza Type A (PCR) Influenza Type B (PCR) Miscellaneous Test Miscellaneous Test 2 07/23/18 07/23/18 07/23/18 22:10 22:11 22:11 WBC RBC Hgb Hct MCV MCH MCHC RDW Std Deviation RDW Coeff of Joanna Plt Count MPV Immature Gran % (Auto) Neut % (Auto) Lymph % (Auto) [place] % (Auto) Eos % (Auto) Baso % (Auto) Immature Gran # (Auto) Neut # (Auto) Lymph # (Auto) [place] # (Auto) Eos # (Auto) Baso # (Auto) PT INR APTT PTT Ratio ABG pH 7.38 ABG pCO2 34 L ABG pO2 108 H ABG HCO3 19 ABG O2 Saturation 97.3 H ABG Base Excess -4.9 Shimon Test POS Barometric Pressure 728.5 Oxygen Given 4L Sodium Potassium Chloride Carbon Dioxide Anion Gap BUN Creatinine Est Cr Clr Drug Dosing Est GFR ( Amer) Est GFR (Non-Af Amer) BUN/Creatinine Ratio Glucose Estimat Average Glucose Hemoglobin A1c Lactate Calcium Phosphorus Magnesium Total Bilirubin Direct Bilirubin AST ALT Alkaline Phosphatase Ammonia Total Creatine Kinase 88 Troponin I Total Protein Albumin Globulin Albumin/Globulin Ratio Lipase TSH Specimen Hemolysis Urine Color Urine Appearance Urine pH Ur Specific [place] Urine Protein Urine Glucose (UA) Urine Ketones Urine Blood Urine Nitrite Urine Bilirubin Urine Urobilinogen Ur Leukocyte Esterase Urine RBC Urine WBC Ur Epithelial Cells Urine Bacteria Nasal Screen MRSA (PCR) Salicylates Urine Opiates Screen U Codeine Confrm GC/MS Ur Morphine (GC/MS) Ur Hydrocodone (GC/MS) Ur Norhydrocodone Ur Noroxycodone Urine Oxycodone (GC/MS) U Oxymorphone GC/MS Ur Methadone, Qual Ur Hydromorphone (GC/MS) Acetaminophen Urine Barbiturates Ur Phencyclidine (PCP) U Amphetamin/Meth Scrn MDMA (Ecstasy) Screen U Benzodiazepines Scrn Ur Cocaine Metabolite U Marijuana (THC) Screen Ethyl Alcohol mg/dL Influenza Type A (PCR) Neg for Influ A Influenza Type B (PCR) Neg for Influ B Miscellaneous Test Miscellaneous Test 2 07/23/18 07/23/18 07/24/18 23:53 23:53 01:00 WBC RBC Hgb Hct MCV MCH MCHC RDW Std Deviation RDW Coeff of Joanna Plt Count MPV Immature Gran % (Auto) Neut % (Auto) Lymph % (Auto) [place] % (Auto) Eos % (Auto) Baso % (Auto) Immature Gran # (Auto) Neut # (Auto) Lymph # (Auto) [place] # (Auto) Eos # (Auto) Baso # (Auto) PT 11.7 INR 1.2 H APTT 27.3 PTT Ratio 1.0 ABG pH ABG pCO2 ABG pO2 ABG HCO3 ABG O2 Saturation ABG Base Excess Shimon Test Barometric Pressure Oxygen Given Sodium Potassium Chloride Carbon Dioxide Anion Gap BUN Creatinine Est Cr Clr Drug Dosing Est GFR ( Amer) Est GFR (Non-Af Amer) BUN/Creatinine Ratio Glucose Estimat Average Glucose Hemoglobin A1c Lactate Calcium Phosphorus Magnesium Total Bilirubin Direct Bilirubin AST ALT Alkaline Phosphatase Ammonia Total Creatine Kinase Troponin I Total Protein Albumin Globulin Albumin/Globulin Ratio Lipase TSH Specimen Hemolysis Urine Color Urine Appearance Urine pH Ur Specific [place] Urine Protein Urine Glucose (UA) Urine Ketones Urine Blood Urine Nitrite Urine Bilirubin Urine Urobilinogen Ur Leukocyte Esterase Urine RBC Urine WBC Ur Epithelial Cells Urine Bacteria Nasal Screen MRSA (PCR) Negative Salicylates Urine Opiates Screen U Codeine Confrm GC/MS Ur Morphine (GC/MS) Ur Hydrocodone (GC/MS) Ur Norhydrocodone Ur Noroxycodone Urine Oxycodone (GC/MS) U Oxymorphone GC/MS Ur Methadone, Qual Ur Hydromorphone (GC/MS) Acetaminophen Urine Barbiturates Ur Phencyclidine (PCP) U Amphetamin/Meth Scrn MDMA (Ecstasy) Screen U Benzodiazepines Scrn Ur Cocaine Metabolite U Marijuana (THC) Screen Ethyl Alcohol mg/dL < 3.0 Influenza Type A (PCR) Influenza Type B (PCR) Miscellaneous Test Miscellaneous Test 2 07/24/18 07/24/18 07/24/18 03:06 03:06 03:06 WBC 8.83 RBC 3.86 L Hgb 11.4 L D Hct 34.0 L MCV 88.1 MCH 29.5 MCHC 33.5 RDW Std Deviation 41.6 RDW Coeff of Joanna 12.9 Plt Count 113 L MPV 10.9 H Immature Gran % (Auto) 0.9 Neut % (Auto) 87.7 Lymph % (Auto) 6.9 [place] % (Auto) 4.5 Eos % (Auto) 0.0 Baso % (Auto) 0.0 Immature Gran # (Auto) 0.08 H Neut # (Auto) 7.74 H Lymph # (Auto) 0.61 L [place] # (Auto) 0.40 Eos # (Auto) 0.00 Baso # (Auto) 0.00 PT INR APTT PTT Ratio ABG pH ABG pCO2 ABG pO2 ABG HCO3 ABG O2 Saturation ABG Base Excess Shimon Test Barometric Pressure Oxygen Given Sodium Potassium Chloride Carbon Dioxide Anion Gap BUN Creatinine Est Cr Clr Drug Dosing Est GFR ( Amer) Est GFR (Non-Af Amer) BUN/Creatinine Ratio Glucose Estimat Average Glucose Pending Hemoglobin A1c Pending Lactate 3.4 H* Calcium Phosphorus Magnesium Total Bilirubin Direct Bilirubin AST ALT Alkaline Phosphatase Ammonia Total Creatine Kinase Troponin I Total Protein Albumin Globulin Albumin/Globulin Ratio Lipase TSH Specimen Hemolysis Urine Color Urine Appearance Urine pH Ur Specific [place] Urine Protein Urine Glucose (UA) Urine Ketones Urine Blood Urine Nitrite Urine Bilirubin Urine Urobilinogen Ur Leukocyte Esterase Urine RBC Urine WBC Ur Epithelial Cells Urine Bacteria Nasal Screen MRSA (PCR) Salicylates Urine Opiates Screen U Codeine Confrm GC/MS Ur Morphine (GC/MS) Ur Hydrocodone (GC/MS) Ur Norhydrocodone Ur Noroxycodone Urine Oxycodone (GC/MS) U Oxymorphone GC/MS Ur Methadone, Qual Ur Hydromorphone (GC/MS) Acetaminophen Urine Barbiturates Ur Phencyclidine (PCP) U Amphetamin/Meth Scrn MDMA (Ecstasy) Screen U Benzodiazepines Scrn Ur Cocaine Metabolite U Marijuana (THC) Screen Ethyl Alcohol mg/dL Influenza Type A (PCR) Influenza Type B (PCR) Miscellaneous Test Miscellaneous Test 2 07/24/18 07/24/18 03:06 03:06 WBC RBC Hgb Hct MCV MCH MCHC RDW Std Deviation RDW Coeff of Joanna Plt Count MPV Immature Gran % (Auto) Neut % (Auto) Lymph % (Auto) [place] % (Auto) Eos % (Auto) Baso % (Auto) Immature Gran # (Auto) Neut # (Auto) Lymph # (Auto) [place] # (Auto) Eos # (Auto) Baso # (Auto) PT 14.6 H INR 1.5 H APTT PTT Ratio ABG pH ABG pCO2 ABG pO2 ABG HCO3 ABG O2 Saturation ABG Base Excess Shimon Test Barometric Pressure Oxygen Given Sodium 141 Potassium 3.1 L D Chloride 104 Carbon Dioxide 23 Anion Gap 14.0 H BUN 15 Creatinine 0.90 Est Cr Clr Drug Dosing 75.3 Est GFR ( Amer) 80.0 Est GFR (Non-Af Amer) 69.0 BUN/Creatinine Ratio 16.7 Glucose 155 H Estimat Average Glucose Hemoglobin A1c Lactate Calcium 7.6 L D Phosphorus 0.9 L* Magnesium 2.0 Total Bilirubin 3.9 H Direct Bilirubin 2.7 H AST 137 H ALT 194 H Alkaline Phosphatase 107 Ammonia Total Creatine Kinase Troponin I Total Protein 5.1 L D Albumin 2.4 L Globulin Albumin/Globulin Ratio Lipase 173 TSH Specimen Hemolysis Urine Color Urine Appearance Urine pH Ur Specific [place] Urine Protein Urine Glucose (UA) Urine Ketones Urine Blood Urine Nitrite Urine Bilirubin Urine Urobilinogen Ur Leukocyte Esterase Urine RBC Urine WBC Ur Epithelial Cells Urine Bacteria Nasal Screen MRSA (PCR) Salicylates Urine Opiates Screen U Codeine Confrm GC/MS Ur Morphine (GC/MS) Ur Hydrocodone (GC/MS) Ur Norhydrocodone Ur Noroxycodone Urine Oxycodone (GC/MS) U Oxymorphone GC/MS Ur Methadone, Qual Ur Hydromorphone (GC/MS) Acetaminophen Urine Barbiturates Ur Phencyclidine (PCP) U Amphetamin/Meth Scrn MDMA (Ecstasy) Screen U Benzodiazepines Scrn Ur Cocaine Metabolite U Marijuana (THC) Screen Ethyl Alcohol mg/dL Influenza Type A (PCR) Influenza Type B (PCR) Miscellaneous Test Miscellaneous Test 2
--- NOTE | 2018-07-24 06:08 | Operative Report ---
Post Operative Report Pre & Post Diagnosis Operation Date: 07/24/18 05:10 Pre-Op Diagnosis: Hyperbilirubinemia: Acute Cholecystisis Post-Op Diagnosis: Hyperbilirubinemia: Acute Cholecystisis Procedure Operation Date: 07/24/18 05:10 Actual Procedures p Endoscopic Retrograde Cholangiopancreatography(Not Applicable) - Dominick Saavedra MD Surgeon Dominick Saavedra MD Refrigeration Plant Cork Insulator None Estimated Blood Loss 0 Findings See Below (CBD stone removed, pus drained, CBD stent placed after sphincterotomy) Specimens None Description of Procedure ERCP I attest to the content of the Intraoperative Record and any orders documented therein. Any exceptions are noted below.
--- NOTE | 2018-07-24 06:25 | GI REPORT ---
Patient Name: Jaqueline Mehta Procedure Date: 07/24/2018 5:20 AM Date of : 1955 Admit Type: Inpatient Age: 62 Gender: Female Attending MD: Dominick Saavedra MD Procedure: ERCP Providers: Dominick Saavedra MD Referring MD: Hayley Argueta Do, Ted Solares MD Indications: Biliary dilation on Computed Tomogram Scan, For therapy of ascending cholangitis, Jaundice Medicines: General Anesthesia Complications: No immediate complications. Estimated Blood Loss: Estimated blood loss: none. Procedure: Pre-Anesthesia Assessment: - Prior to the procedure, a History and Physical was performed, and patient medications and allergies were reviewed. The patient is unable to give consent secondary to the patient's altered mental status. The risks and benefits of the procedure and the sedation options and risks were discussed with the patient's spouse. All questions were answered and informed consent was obtained. Patient identification and proposed procedure were verified by the physician and the nurse in the procedure room. Mental Status Examination: sedated. Airway Examination: orotracheal intubation. Respiratory Examination: clear to auscultation. CV Examination: normal. ASA Grade Assessment: E - Emergency. After reviewing the risks and benefits, the patient was deemed in satisfactory condition to undergo the procedure. The anesthesia plan was to use general anesthesia. Immediately prior to administration of medications, the patient was re-assessed for adequacy to receive sedatives. The heart rate, respiratory rate, oxygen saturations, blood pressure, adequacy of pulmonary ventilation, and response to care were monitored throughout the procedure. The physical status of the patient was re-assessed after the procedure. After obtaining informed consent, the scope was passed under direct vision. Throughout the procedure, the patient's blood pressure, pulse, and oxygen saturations were monitored continuously. The Scope was introduced through the mouth, and advanced to the duodenum and used to inject contrast into the bile duct. The ERCP was accomplished without difficulty. The patient tolerated the procedure well. Findings: The talent development analyst film was normal. The esophagus was successfully intubated under direct vision. The scope was advanced to a normal major papilla in the descending duodenum without detailed examination of the pharynx, larynx and associated structures, and upper GI tract. The upper GI tract was grossly normal. A 0.035 inch straight standard wire was passed into the biliary tree from the first attempt. The Fusion OMNI sphincterotome was passed over the guidewire and the bile duct was then deeply cannulated. Contrast was injected. I personally interpreted the bile duct images. Ductal flow of contrast was adequate. Image quality was adequate. Contrast extended to the main bile duct. The lower third of the main bile duct contained one stone. The main bile duct was dilated. The largest diameter was 12 mm. Inadvertant opacification of the gallbladder was seen. Biliary sphincterotomy was made with a monofilament Fusion OMNI sphincterotome using ERBE electrocautery. There was no post-sphincterotomy bleeding. The biliary tree was swept with an 11.5 mm balloon starting at the bifurcation. Pus was swept from the duct. Sludge was swept from the duct. One stone was removed. No stones remained. Two 10 Fr by 8 cm and 9 cm plastic stents with a single external flap and a single internal flap were placed into the common bile duct. Bile flowed through the stents. The stents were in good position. The total fluoroscopy exposure time was 1 minute and 37 seconds. PD was not cannulated nor injected with contrast. Impression: - The entire main bile duct was dilated. - Choledocholithiasis was found. Complete removal was accomplished by biliary sphincterotomy and balloon extraction. - The biliary tree was swept and pus was found. - Two plastic stents were placed into the common bile duct. Recommendation: - Return patient to ICU for ongoing care. - Refer to a surgeon for cholecystectomy. - Continue IV ABx. Needs a total course of 10 days. - Supporitve care. - Repeat ERCP in 8 weeks to remove the stent. Dominick Saavedra MD 07/24/2018 6:25:24 AM This report has been signed electronically. Note Initiated On: 07/24/2018 5:20 AM Number of Addenda: 0 I attest to the content of the Intraoperative Record and orders documented therein, exceptions below {[id number]}
[2018-07-24 06:32] LABS: Estimated Average Glucose 120 mg/dl
--- NOTE | 2018-07-24 06:33 | Anesthesiology Progress Note ---
Date of Service July 24, 2018 Anesthesia Post Procedure Vital Signs Vital Signs: Temp Pulse Pulse Resp BP BP Pulse Ox 07/24/18 05:00 99 H 20 84/46 L 99 07/24/18 04:00 38.9 C H 94 H 20 87/44 L 97 07/24/18 03:00 100 H 21 84/43 L 97 07/24/18 02:00 102 H 105 H 20 128/61 98 07/24/18 01:21 39.3 C H 106 H 21 101/66 92 07/24/18 01:05 39.3 C H 108 H 20 101/66 96 07/24/18 00:50 39.1 C H 07/24/18 00:31 124 H 172/75 H 97 07/24/18 00:16 125 H 178/75 H 98 07/24/18 00:10 117 H 98 07/24/18 00:01 133 H 147/78 H 98 07/24/18 00:00 115 H 98 07/23/18 23:50 122 H 97 07/23/18 23:46 117 H 146/71 H 97 07/23/18 23:41 114 H 153/69 H 98 07/23/18 23:40 110 H 16 97 07/23/18 23:30 118 H 97 07/23/18 23:20 98 07/23/18 23:10 98 07/23/18 23:00 121 H 100 07/23/18 22:30 118 H 96 07/23/18 22:21 123 H 136/78 95 07/23/18 22:20 125 H 97 07/23/18 22:17 122 H 97 07/23/18 22:16 124 H 146/80 H 95 07/23/18 22:11 129 H 147/93 H 97 07/23/18 22:10 132 H 96 07/23/18 22:07 136 H 194/84 H 96 07/23/18 22:01 139 H 208/99 H 97 07/23/18 22:00 39.1 C H 138 H 97 07/23/18 21:56 138 H 172/101 H 98 07/23/18 21:51 137 H 227/97 H 100 07/23/18 21:50 145 H 99 07/23/18 21:46 147 H 258/105 H 100 07/23/18 21:43 127 H 19 97 05/16/19 21:42 132 H 169/112 H 100 07/23/18 21:41 132 H 187/89 H 99 07/23/18 21:40 130 H 99 07/23/18 21:30 130 H 25 H 07/23/18 21:20 132 H 37 H 93 07/23/18 21:10 132 H 36 H 93 07/23/18 21:08 134 H 34 H 93 07/23/18 20:53 133 H 18 176/105 H 96 07/23/18 20:50 129 H 34 H 94 07/23/18 20:42 134 H 28 H 176/105 H 95 07/23/18 20:40 135 H 21 97 07/23/18 20:30 135 H 22 96 07/23/18 20:20 123 H 26 H 95 07/23/18 20:10 130 H 32 H 94 07/23/18 20:06 130 H 21 95 07/23/18 19:58 135 H 27 H 156/106 H 95 07/23/18 19:49 37.8 C H 133 H 22 171/84 H 92 Pulse Ox 07/24/18 05:00 07/24/18 04:00 07/24/18 03:00 07/24/18 02:00 07/24/18 01:21 07/24/18 01:05 96 07/24/18 00:50 07/24/18 00:31 07/24/18 00:16 07/24/18 00:10 07/24/18 00:01 07/24/18 00:00 07/23/18 23:50 07/23/18 23:46 07/23/18 23:41 07/23/18 23:40 07/23/18 23:30 07/23/18 23:20 07/23/18 23:10 07/23/18 23:00 07/23/18 22:30 07/23/18 22:21 07/23/18 22:20 07/23/18 22:17 07/23/18 22:16 07/23/18 22:11 07/23/18 22:10 07/23/18 22:07 07/23/18 22:01 07/23/18 22:00 07/23/18 21:56 07/23/18 21:51 07/23/18 21:50 07/23/18 21:46 07/23/18 21:43 07/23/18 21:42 07/23/18 21:41 07/23/18 21:40 07/23/18 21:30 07/23/18 21:20 07/23/18 21:10 07/23/18 21:08 07/23/18 20:53 07/23/18 20:50 07/23/18 20:42 07/23/18 20:40 07/23/18 20:30 07/23/18 20:20 07/23/18 20:10 07/23/18 20:06 07/23/18 19:58 07/23/18 19:49 Notes Mental Status: see notes below Patient Amnestic to Procedure: Yes Nausea / Vomiting: adequately controlled Pain: adequately controlled Airway Patency, RR, SpO2: see Notes below BP & HR: stable & adequate Hydration State: stable & adequate Anesthetic Complications: no major complications apparent and see Notes below Notes: Patient was already intubated prior to the procedure. She had a general anesthetic and returned to the ICU intubated. VSS during and immediately after procedure. Report given to HAT BLOCKING MACHINE OPERATOR and ICU METAL TILE SETTER. All questions answered.
--- NOTE | 2018-07-24 07:14 | Fluoroscopy Report ---
[place] ERCP biliary ductal CLINICAL HISTORY: 62 years-old Female presenting with ERCP. TECHNIQUE: Fluoroscopy was provided for endoscopic retrograde cholangiopancreatography. 7 fluoroscopi c image(s) recorded. COMPARISON: CT from 07/23/2018. FINDINGS: Procedure: An endoscope projects over the descending duodenum. A catheter was advanced into the commo n bile duct. The common bile duct was opacified with contrast and several filling defects were noted consistent with choledocholithiasis. Additionally, multiple filling defects evident in the cystic juan carlos t. Partial opacification of the gallbladder. The catheter was advanced into the intrahepatic ducts, w hich were also opacified and not significantly dilated. Peritoneal spillage: No evidence of peritoneal spillage of contrast. Extrahepatic bile ducts: Dilated common bile duct with suspected choledocholithiasis. Contrast not vi sualized extending into the small bowel. Intrahepatic bile ducts: There is no intrahepatic bile duct dilatation. Fluoroscopy dosage (mGy): 22.43. Fluoroscopy time: 97.3 seconds. Number or time of high level fluoroscopy (HLF), digital spot, or digital subtraction images: 0. IMPRESSION: Choledocholithiasis and calculi within the cystic duct. No significant intrahepatic biliary ductal di latation. Electronically signed by: Abraham Rodríguez M.D. 07/24/2018 7:13 AM
[2018-07-24] MEDS: PROPOFOL 1,000 MG/100 ML VIAL IV PRN (07:51)
[2018-07-24] MEDS: metroNIDAZOLE 500 MG/100 ML BAG IV SCH ×2 (07:54→16:10)
[2018-07-24] MEDS: FAMOTIDINE 20 MG in SYRINGE 3 ML IV SCH ×2 (07:54→19:48)
[2018-07-24] MEDS: INSULIN ASPART 100 UNITS/ML 3 ML PEN SC SCH ×4 (08:03→21:36)
--- NOTE | 2018-07-24 10:47 | Hospitalist Progress Note ---
Date of Service July 24, 2018 Assessment & Plan (1) Opioid withdrawal: Headache and diffuse abdominal pain are consistently worse as the evening progresses. Abdomen is not distended but she is guarded and is sitting up crouched over, very reluctant to lie back. Post-LP headache was considered however, there was a dry tap reported so this is less likely. Strongly suspect opiate withdrawal with some delirium. Dilaudid ordered stat followed by her home regimen of Morphine ER 60mg tonight and Percocet PRN. She is also on gabapentin which has been held since admission and will be restarted. (2) Choledocholithiasis: s/p ERCP overnight with stone removal and CBD stent placement. (3) Acute cholecystitis: sepsis 2/2 this. US consistent with acute cholecystitis. Currently cannot tolerate HIDA as she appears to be in a narcotic withdrawal, however, even if she is improved she is on chronic long-acting narcotics consistently which should not be stopped at this point. This may obscure the findings. Defer to Surgery for how to proceed. Cont abx. (4) Chronic pain syndrome: Takes chronic narcotics long-standing. (5) Severe sepsis: resuscitated and on appropriate antibiotic therapy with improvement in leukocytosis and clinical picture. Stopping IVF. (6) DVT prophylaxis: Heparin changed to Lovenox for once daily dosing Full Code Dispo-cont telemetry monitoring Hayley Argueta DO [facility] Hospitalist ADDENDUM: She was originally seen this afternoon on arrival to the floor from the ICU and was somewhat sedated and sleepy but was mentioning a headache and some generalized tenderness. I checked on her again around 9pm and noted persistent tachycardia. On evaluation she appears to be having opioid withdrawal. She is hunched over and very reluctant to let staff, or myself lay her down. She has a severe headache and is holding her head in her hands. She is guarding her abdomen. Lungs still with some crackles present and IVF were stopped. Abdomen was soft and diffusely tender with no distension or change from earlier exam. Headache did not seem to change with position. Pt was able to follow commands and would answer yes appropriately, however, she was not very talkative and continued to try to get out of bed demonstrating some intermittent delirium for the nurses. Repeat labwork ordered including CBC w diff, BMP, hepatic panel, lactate and Mg. Holding on imaging of head or abdomen until we give a trial of narcotics. Discussed the plan with sales utility representative. Also discussed with who agrees with my assessment. DO Kendall Dinora 62-year-old female with a history of chronic back pain presented with more confusion and fevers. An LP was attempted in the ER but unsuccessful secondary to kyphoscoliosis. She was noted to have pericolic fluid and gallstones. She developed septic shock and was intubated for airway protection as she was obtunded. She was started on broad-spectrum antibiotics and was taken to the OR by gastroenterology to undergo an ERCP with stent placement in the common bile duct and removal of stone. She was returned to the ICU and successfully extubated. She was transferred to the floor and is still somewhat lethargic after her ex extubation. She does report some abdominal pain as well as a headache. Review of Systems Review of Systems: limited as patient was still sedated from anesthesia Physical Exam Physical Exam: CONSTITUTIONAL: WNWD, vitals as above, generally well- appearing, sleepy but awakens to voice EYES: PERRL, normal conjuctivae, no scleral icterus ENT: MMM, lip trauma upper and lower with swelling is present RESPIRATORY: crackles throughout lung guo bilaterally, no wheezes, normal respiratory effort CARDIOVASCULAR: tachy rate and rhythm, S1 and 2 heard without murmurs, gallops or rubs, no JVD, no peripheral edema GASTROINTESTINAL: normal bowel sounds, soft, diffuse tenderness without distension MUSCULOSKELETAL: head is normocephalic and atraumatic, generalized weakness SKIN: warm and dry NEUROLOGIC: limited exam as patient is sleepy coming out of sedation. PSYCHIATRIC: answers questions appropriately Results & Data Vital Signs (Past 12 Hours) Vital Signs Temp Pulse Pulse Resp BP BP Pulse Ox 07/24/18 09:31 124 H 140/72 98 07/24/18 09:01 107 H 119/59 L 98 07/24/18 08:31 100 H 128/71 100 07/24/18 08:01 99 H 134/73 99 07/24/18 07:34 98 H 20 99 07/24/18 07:31 96 H 117/64 98 07/24/18 07:00 37.7 C H 99 H 96 H 20 103/62 103/62 99 07/24/18 06:40 106 H 110/62 97 07/24/18 06:36 107 H 127/66 97 07/24/18 06:31 108 H 97/56 L 98 07/24/18 06:30 107 H 16 98 07/24/18 06:26 108 H 105/56 L 98 07/24/18 06:19 108 H 94/54 L 96 07/24/18 05:15 20 07/24/18 05:00 99 H 20 84/46 L 99 07/24/18 04:00 38.9 C H 94 H 20 87/44 L 97 07/24/18 03:00 100 H 21 84/43 L 97 07/24/18 02:00 102 H 105 H 20 128/61 98 07/24/18 01:21 39.3 C H 106 H 21 101/66 92 07/24/18 01:05 39.3 C H 108 H 20 101/66 96 07/24/18 00:50 39.1 C H 07/24/18 00:31 124 H 172/75 H 97 07/24/18 00:16 125 H 178/75 H 98 07/24/18 00:10 117 H 98 07/24/18 00:01 133 H 147/78 H 98 07/24/18 00:00 115 H 98 07/23/18 23:50 122 H 97 07/23/18 23:46 117 H 146/71 H 97 07/23/18 23:41 114 H 153/69 H 98 07/23/18 23:40 110 H 16 97 07/23/18 23:30 118 H 97 07/23/18 23:20 98 07/23/18 23:10 98 07/23/18 23:00 121 H 100 Pulse Ox 07/24/18 09:31 07/24/18 09:01 07/24/18 08:31 07/24/18 08:01 07/24/18 07:34 07/24/18 07:31 07/24/18 07:00 07/24/18 06:40 07/24/18 06:36 07/24/18 06:31 07/24/18 06:30 07/24/18 06:26 07/24/18 06:19 07/24/18 05:15 07/24/18 05:00 07/24/18 04:00 07/24/18 03:00 07/24/18 02:00 07/24/18 01:21 07/24/18 01:05 96 07/24/18 00:50 07/24/18 00:31 07/24/18 00:16 07/24/18 00:10 07/24/18 00:01 07/24/18 00:00 07/23/18 23:50 07/23/18 23:46 07/23/18 23:41 07/23/18 23:40 07/23/18 23:30 07/23/18 23:20 07/23/18 23:10 07/23/18 23:00 Laboratory Results Short CBC 07/23/18 07/24/18 Range/Units 20:33 03:06 WBC 17.13 H 8.83 (4.8-10.8) K/uL Hgb 14.6 11.4 L D (12.0-16.0) g/dL Hct 41.3 34.0 L (37-47) % Plt Count 169 113 L (130-400) K/uL BMP 07/23/18 07/24/18 20:33 03:06 Sodium 135 L 141 Potassium 3.9 3.1 L D Chloride 101 104 Carbon Dioxide 22 23 BUN 15 15 Creatinine 1.08 0.90 Glucose 211 H 155 H Calcium 9.5 7.6 L D Cardiac Enzymes 07/23/18 07/23/18 Range/Units 20:33 22:11 Total Creatine Kinase 88 (26-192) U/L Troponin I < 0.015 (0-0.045) ng/ml Liver Function 07/23/18 07/24/18 Range/Units 20:33 03:06 Total Bilirubin 4.7 H 3.9 H (0.2-1) mg/dl Direct Bilirubin 2.7 H (0-0.2) mg/dl AST 307 H 137 H (15-37) U/L ALT 322 H 194 H (12-78) U/L Alkaline Phosphatase 195 H 107 (45-117) U/L Albumin 3.7 2.4 L (3.4-5.0) gm/dl Urine 07/23/18 Range/Units 21:55 Urine Color Yellow Urine Appearance Clear (Clear) Urine pH 6.0 (4.5-7.5) Ur Specific [place] 1.015 (1.000-1.030) Urine Protein 1+ H (Negative) Urine Glucose (UA) 2+ H (Negative) Medications Administered Current Inpatient Medications Dextrose (Dextrose 50%) 25 - 50 ml IV UD PRN; Protocol PRN Reason: Hypoglycemia Protocol Stop: 08/23/18 04:14 Glucagon (Glucagen) 1 mg SQ UD PRN; Protocol PRN Reason: Hypoglycemia Protocol Stop: 08/23/18 04:14 Glucose (Glucose 40%) 15 - 30 gm PO UD PRN; Protocol PRN Reason: Hypoglycemia Protocol Stop: 08/23/18 04:14 Glucose (Dex4 Glucose) 4 - 8 tabs PO UD PRN; Protocol PRN Reason: Hypoglycemia Protocol Stop: 08/23/18 04:14 Hydromorphone HCl (Dilaudid) 1 mg IV Q3H PRN PRN Reason: Pain Stop: 08/07/18 01:04 Last Admin: 07/24/18 08:54 Dose: 1 mg Documented by: Sodium Chloride (Nss 1000ml) 1,000 mls @ 200 mls/hr IV .Q5H [facility] Stop: 08/23/18 01:04 Last Admin: 07/24/18 07:50 Dose: 200 mls/hr Documented by: Metronidazole (Flagyl) 500 mg in 100 mls @ 100 mls/hr IV Q8H [facility] Stop: 08/03/18 07:59 Last Infusion: 07/24/18 09:25 Dose: Infused Documented by: Cefepime HCl 2,000 mg/ Syringe 20 mls @ 5.5 mls/min IV Q8H [facility]; Protocol Stop: 08/03/18 01:59 Last Admin: 07/24/18 10:26 Dose: 5.5 mls/min Documented by: Famotidine 20 mg/ Syringe 5 mls @ 2.5 mls/min IV Q12H [facility] Stop: 08/23/18 08:59 Last Admin: 07/24/18 07:54 Dose: 2.5 mls/min Documented by: Norepinephrine Bitartrate 8 mg (/ Dextrose) 508 mls @ 0 mls/hr IV .Q0M PRN; Protocol PRN Reason: TITRATE Stop: 08/23/18 04:44 Last Titration: 07/24/18 09:40 Dose: 0 mcg/kg/min, 0 mls/hr Documented by: Insulin Aspart (Novolog Flexpen) 0 units SC ACHS [facility] Stop: 08/23/18 07:29 Last Admin: 07/24/18 08:03 Dose: 1 units Documented by: Miscellaneous (Icu Protocol For Hyperglycemia) 1 ea N/A PRN PRN; Protocol PRN Reason: Hyperglycemia Protocol Stop: 07/26/18 01:04 Miscellaneous (Carbohydrates For Hypoglycemia) 15 - 30 gm PO UD PRN PRN Reason: Hypoglycemia Treatment Stop: 08/23/18 04:14 Miscellaneous Information (Cefepime Consult Active) 1 ea N/A DAILY PRN PRN Reason: Consult Stop: 08/23/18 01:21
--- NOTE | 2018-07-24 11:15 | Critical Care Consultation ---
Date of Consultation July 24, 2018 Assessment & Plan (1) Cholangitis: Impression: 1. Acute cholangitis. Status post ERCP. 2. Sepsis secondary to acute cholangitis/cholecystitis with the presence of fever, leukocytosis, lactic acidosis, positive blood culture with gram-negative ree x2 bottles. 3. The likelihood of Tylenol overdose in this patient is subzero. 4. History of chronic back pain secondary to kyphoscoliosis. 5. History of depression and fibromyalgia. Plan: 1. Status post ERCP with common bile duct stent placement, appreciate Dr. Grimm input. 2. Continue broad-spectrum antibiotic with cefepime and Flagyl. 3. General surgery consult. 4. Discontinue N-acetylcysteine. 5. Replacement of KCl. 6. Discontinue vancomycin, this is only gram-negative ree sepsis. 7. Discontinue propofol. 8. Extubate the patient. 9. Oxygen via nasal cannula. 10. Dilaudid for pain. 11. Avoid morphine for pain. 12. DVT prophylaxis. 13. GI prophylaxis. 14. Discussed with Dr. Grimm, with the staff on rounds, appreciate all inputs, critical care time spent with the patient was 45 minutes. History of Present Illness Reason for Consultation: Acute cholangitis. Requesting Physician: Dr. Argueta Attending Physician: Hayley Argueta, DO History of Present Illness Dear Dr. Argueta: Thank you for the kind referral Mrs. Mehta to critical care service. This is 62-year-old female with history of kyphoscoliosis, chronic back pain, she has been complaining of pain apparently for the past 20 years per records, the patient was seen by her primary care physician for her chronic pain, until last night when she started having more confusion and fever. Presented to the emergency room. Extensive work-up was done in this patient including attempted LP as well. The patient did have pericholic fluid as well as gallstones. The patient was intubated for airway protection as she was obtunded. The patient started empirically on antibiotics and was taken to the OR by Dr. Grimm, the patient underwent ERCP with stent placement in the common bile duct and removal of stone. Patient returned to the ICU and successfully was extubated. Review of system was difficult to obtain from the patient, however, her symptoms according to the records were consistent with back pain, fever, lethargy, but no nausea or vomiting and no reported change in bowel movements or urine habit. Currently the patient is somewhat lethargic after being extubated but she is not in pain. Allergies Allergy/AdvReac Type Severity Reaction Status Date / Time sulfamethoxazole Allergy Rash Verified 07/23/18 22:25 [From Bactrim] trimethoprim [From Bactrim] Allergy Rash Verified 07/23/18 22:25 IBUPROFEN Allergy Unknown GASTRIC Uncoded 07/23/18 22:25 SYMPTOMS Home Medications Home Medications Medication Instructions Recorded Confirmed Type Sleep Aid Tab 1 tab PO HS PRN 07/23/18 07/23/18 History acetaminophen [Tylenol Extra 500 mg PO Q6H PRN 07/23/18 07/23/18 History Strength] gabapentin [Neurontin] 100 mg PO TID 07/23/18 07/23/18 History lisinopril 10 mg PO DAILY 07/23/18 07/23/18 History morphine [MS Contin] 60 mg PO Q12 07/23/18 07/23/18 History omega 6-lnh-usv-fish oil [[place]-3] 1 cap PO TID 07/23/18 07/23/18 History omeprazole 20 mg PO DAILY 07/23/18 07/23/18 History oxycodone-acetaminophen [Percocet] 1 tab PO BID PRN 07/23/18 07/23/18 History promethazine 25 mg PO Q8 PRN 07/23/18 07/23/18 History scopolamine base [Transderm-Scop] 1 patch TOPICAL .UD WHEN TRAVELING 07/23/18 07/23/18 History simvastatin [Zocor] 10 mg PO DAILY 07/23/18 07/23/18 History Patient History Medical History Scoliosis Chronic pain syndrome Surgical History History of back surgery Social History Preferred Language: Armenian Beliefs That Will Affect Care: None Current Living Situation: Spouse Feels Safe at Home: Yes Smoking Status: Former smoker Hx Alcohol Use: Yes Alcohol type: wine Hx Substance Use: No Review of Systems Review of Systems: Review of system is not obtainable at this point. Physical Exam Physical Exam: Vital signs are stable, low-grade fever, S1-S2, regular rate and rhythm, lungs are clear, abdomen slightly tender in the right upper quadrant, but soft, bowel sounds are positive, no edema, neurologically patient open her eyes follow commands does not appear to be focal. Kyphosis was noted. No skin rash. Results & Data Vital Signs (Past 12 Hours) Vital Signs Temp Pulse Pulse Resp BP BP Pulse Ox 07/24/18 09:31 124 H 140/72 98 07/24/18 09:01 107 H 119/59 L 98 07/24/18 08:31 100 H 128/71 100 07/24/18 08:01 99 H 134/73 99 07/24/18 07:34 98 H 20 99 07/24/18 07:31 96 H 117/64 98 07/24/18 07:00 37.7 C H 99 H 96 H 20 103/62 103/62 99 07/24/18 06:40 106 H 110/62 97 07/24/18 06:36 107 H 127/66 97 07/24/18 06:31 108 H 97/56 L 98 07/24/18 06:30 107 H 16 98 07/24/18 06:26 108 H 105/56 L 98 07/24/18 06:19 108 H 94/54 L 96 07/24/18 05:15 20 07/24/18 05:00 99 H 20 84/46 L 99 07/24/18 04:00 38.9 C H 94 H 20 87/44 L 97 07/24/18 03:00 100 H 21 84/43 L 97 07/24/18 02:00 102 H 105 H 20 128/61 98 07/24/18 01:21 39.3 C H 106 H 21 101/66 92 07/24/18 01:05 39.3 C H 108 H 20 101/66 96 07/24/18 00:50 39.1 C H 07/24/18 00:31 124 H 172/75 H 97 07/24/18 00:16 125 H 178/75 H 98 07/24/18 00:10 117 H 98 07/24/18 00:01 133 H 147/78 H 98 07/24/18 00:00 115 H 98 07/23/18 23:50 122 H 97 07/23/18 23:46 117 H 146/71 H 97 07/23/18 23:41 114 H 153/69 H 98 07/23/18 23:40 110 H 16 97 07/23/18 23:30 118 H 97 07/23/18 23:20 98 Pulse Ox 07/24/18 09:31 07/24/18 09:01 07/24/18 08:31 07/24/18 08:01 07/24/18 07:34 07/24/18 07:31 07/24/18 07:00 07/24/18 06:40 07/24/18 06:36 07/24/18 06:31 07/24/18 06:30 07/24/18 06:26 07/24/18 06:19 07/24/18 05:15 07/24/18 05:00 07/24/18 04:00 07/24/18 03:00 07/24/18 02:00 07/24/18 01:21 07/24/18 01:05 96 07/24/18 00:50 07/24/18 00:31 07/24/18 00:16 07/24/18 00:10 07/24/18 00:01 07/24/18 00:00 07/23/18 23:50 07/23/18 23:46 07/23/18 23:41 07/23/18 23:40 07/23/18 23:30 07/23/18 23:20 Laboratory Results Labs showed leukocytosis, lactic acidosis, positive blood cultures with gram- negative ree, BUN/creatinine has been stable. Diagnostic Findings CT of the abdomen results were noted for cholangitis and cholecystitis.
--- NOTE | 2018-07-24 12:09 | Surgery Consultation ---
Date of Consultation July 24, 2018 Assessment & Plan (1) Cholangitis: 62 year-old female who presented to emergency department last evening with increasing back pain and altered mental status with hallucinations that began yesterday. Found to have dilated CBD and wall enhancement of CBD and g allbladder on CT scan concerning for possible cholecystitis or cholangitis. Elevated t. bili at 4.7. Leukocytosis of 17K. Elevated LFTs. Lactic acid 4. Underwent emergent ERCP and was found to have cholangitis with choledocholithiasis. Leukocytosis improved to 8k today. Improvement of LFTS. T. bili still elevated at 3.9. Patient still with altered mental status/confused. Plan: Recommend ultrasound to further evaluate gallbladder and rule out acute cholecystitis. Do not believe she would be able to tolerate HIDA scan given altered mental status. If there are no signs of acute cholecystitis could get her through this acute phase and discuss elective cholecystectomy as she has CBD stent present. Would continue IV Abx, IV Fluids, NPO, Zofran prn nausea. Follow labs (t. bili and LFTS, lactic acid). Discussed with her baseline functioning status. She does not ambulate much at home and is in bed majority of the day. He does all of the cooking and cleaning. She does not use any assistive devices for ambulation. Will closely follow along Await results of US to determine timing of cholecystectomy. Dr. Saucedo has seen and examined patient, developed assessment and plan. (2) Acute alteration in mental status: (3) Choledocholithiasis: History of Present Illness Reason for Consultation: Cholecystectomy Requesting Physician: Dr. Jorge Attending Physician: Hayley Argueta DO History of Present Illness 62 year-old female who presented to emergency department last evening with increasing back pain and altered mental status with hallucinations that began yesterday. History obtained by given patient's altered mental status both in the emergency room and during today's examination. Patient's was unsure if she took any extra medications at home. She is on chronic pain medication for chronic back pain (Morhpine and Percocet). She became obtunded in the emergency room and required intubation. CT scan of abdomen and pelvis showed moderate intra and extrahepatic bile duct dilatation with enhancement of the wall of the common bile duct and gallbladder and trace pericholecystic fluid. She had leukocytosis of 17k and t. bili elevated at 4.7, elevated LFTS in the 300's and elevated alk phos. She underwent emergent ERCP early this morning which showed + choledocholithaisis as well as cholangitis. Stone as removed and CBD stent placed. Our services now consulted for cholecystectomy. Patient still confused and sedated. at bedside. History as above. States she was not complaining of significant abdominal pain prior to yesterdays events. Nor any nausea or vomiting. Denies of any known diarrhea or stool changes. States her appetite was low and she last ate Friday evening. Allergies Allergy/AdvReac Type Severity Reaction Status Date / Time sulfamethoxazole Allergy Rash Verified 07/23/18 22:25 [From Bactrim] trimethoprim [From Bactrim] Allergy Rash Verified 07/23/18 22:25 IBUPROFEN Allergy Unknown GASTRIC Uncoded 07/23/18 22:25 SYMPTOMS Home Medications Home Medications Medication Instructions Recorded Confirmed Type Sleep Aid Tab 1 tab PO HS PRN 07/23/18 07/23/18 History acetaminophen [Tylenol Extra 500 mg PO Q6H PRN 07/23/18 07/23/18 History Strength] gabapentin [Neurontin] 100 mg PO TID 07/23/18 07/23/18 History lisinopril 10 mg PO DAILY 07/23/18 07/23/18 History morphine [MS Contin] 60 mg PO Q12 07/23/18 07/23/18 History omega [id number]-fish oil [[place]-3] 1 cap PO TID 07/23/18 07/23/18 History omeprazole 20 mg PO DAILY 07/23/18 07/23/18 History oxycodone-acetaminophen [Percocet] 1 tab PO BID PRN 07/23/18 07/23/18 History promethazine 25 mg PO Q8 PRN 07/23/18 07/23/18 History scopolamine base [Transderm-Scop] 1 patch TOPICAL .UD WHEN TRAVELING 07/23/18 07/23/18 History simvastatin [Zocor] 10 mg PO DAILY 07/23/18 07/23/18 History Patient History Medical History Scoliosis Chronic pain syndrome Surgical History History of back surgery Social History Preferred Language: Kazakh Beliefs That Will Affect Care: None Current Living Situation: Spouse Feels Safe at Home: Yes Smoking Status: Former smoker Hx Alcohol Use: Yes Alcohol type: wine Hx Substance Use: No Review of Systems Review of Systems: Unobtainable due to cognitive status complete review of systems unable to be obtained as patient sedated and confused Physical Exam Constitutional: + altered mental status (confused, sedated); no acute distress Respiratory: normal respiratory effort; no respiratory distress, no labored breathing and no retractions Cardiovascular: RRR, no murmur, no edema Gastrointestinal (Abdomen): Inspection/Auscultation: abdomen normal to inspection; abdomen not distended Percussion/Palpation: abdomen soft; abdomen nontender, no guarding and abdomen not rigid Skin: no rashes, warm and dry Results & Data Vital Signs (Past 12 Hours) Vital Signs Temp Pulse Pulse Resp BP BP Pulse Ox 07/24/18 11:00 110 H 26 H 161/72 H 96 07/24/18 09:31 124 H 140/72 98 07/24/18 09:01 107 H 119/59 L 98 07/24/18 08:31 100 H 128/71 100 07/24/18 08:01 99 H 134/73 99 07/24/18 07:34 98 H 20 99 07/24/18 07:31 96 H 117/64 98 07/24/18 07:00 37.7 C H 99 H 96 H 20 103/62 103/62 99 07/24/18 06:40 106 H 110/62 97 07/24/18 06:36 107 H 127/66 97 07/24/18 06:31 108 H 97/56 L 98 07/24/18 06:30 107 H 16 98 07/24/18 06:26 108 H 105/56 L 98 07/24/18 06:19 108 H 94/54 L 96 07/24/18 05:15 20 07/24/18 05:00 99 H 20 84/46 L 99 07/24/18 04:00 38.9 C H 94 H 20 87/44 L 97 07/24/18 03:00 100 H 21 84/43 L 97 07/24/18 02:00 102 H 105 H 20 128/61 98 07/24/18 01:21 39.3 C H 106 H 21 101/66 92 07/24/18 01:05 39.3 C H 108 H 20 101/66 96 07/24/18 00:50 39.1 C H 07/24/18 00:31 124 H 172/75 H 97 07/24/18 00:16 125 H 178/75 H 98 07/24/18 00:10 117 H 98 Pulse Ox 07/24/18 11:00 07/24/18 09:31 07/24/18 09:01 07/24/18 08:31 07/24/18 08:01 07/24/18 07:34 07/24/18 07:31 07/24/18 07:00 07/24/18 06:40 07/24/18 06:36 07/24/18 06:31 07/24/18 06:30 07/24/18 06:26 07/24/18 06:19 07/24/18 05:15 07/24/18 05:00 07/24/18 04:00 07/24/18 03:00 07/24/18 02:00 07/24/18 01:21 07/24/18 01:05 96 07/24/18 00:50 07/24/18 00:31 07/24/18 00:16 07/24/18 00:10 Laboratory Results 07/24/18 07/24/18 07/24/18 Range/Units 09:14 08:01 04:51 WBC (4.8-10.8) K/uL RBC (4.2-5.4) M/uL Hgb (12.0-16.0) g/dL Hct (37-47) % MCV (80-100) fL MCH (25-34) pg MCHC (32-36) g/dL RDW Std Deviation (36.4-46.3) fL RDW Coeff of Joanna (11.5-14.5) % Plt Count (130-400) K/uL MPV (7.4-10.4) fL Immature Gran % (Auto) % Neut % (Auto) % Lymph % (Auto) % [place] % (Auto) % Eos % (Auto) % Baso % (Auto) % Immature Gran # (Auto) (0.00-0.02) K/uL Neut # (Auto) (1.4-6.5) K/uL Lymph # (Auto) (1.2-3.4) K/uL [place] # (Auto) (0.11-0.59) K/uL Eos # (Auto) (0-0.5) K/uL Baso # (Auto) (0-0.2) K/uL PT (9.0-12.0) Seconds INR (0.9-1.1) APTT (21.0-31.0) Seconds PTT Ratio ABG pH (7.35-7.45) ABG pCO2 (35-46) mmHg ABG pO2 (80-95) mm/Hg ABG HCO3 (19-24) mmol/L ABG O2 Saturation (90-95) % ABG Base Excess (-9-1.8) mEq/L Shimon Test (Pos) Barometric Pressure mm/Hg Oxygen Given Sodium (136-145) mmol/L Potassium (3.5-5.1) mmol/L Chloride (98-107) mmol/L Carbon Dioxide (21-32) mmol/L Anion Gap (3-11) BUN (7-18) mg/dl Creatinine (0.6-1.2) mg/dl Est Cr Clr Drug Dosing Est GFR ( Amer) Est GFR (Non-Af Amer) BUN/Creatinine Ratio (10-20) Glucose (70-99) mg/dl POC Glucose (other) 186 H (70-99) mg/dl Estimat Average Glucose mg/dl Hemoglobin A1c (4.5-5.6) % Lactate 2.2 H* (0.4-2.0) mmol/L Calcium (8.5-10.1) mg/dl Phosphorus (2.5-4.9) mg/dl Magnesium (1.8-2.4) mg/dl Total Bilirubin (0.2-1) mg/dl Direct Bilirubin (0-0.2) mg/dl AST (15-37) U/L ALT (12-78) U/L Alkaline Phosphatase (45-117) U/L Ammonia (11-32) umol/L Total Creatine Kinase (26-192) U/L Troponin I (0-0.045) ng/ml Total Protein (6.4-8.2) gm/dl Albumin (3.4-5.0) gm/dl Globulin (2.5-4.0) gm/dl Albumin/Globulin Ratio (0.9-2) Lipase (73-393) U/L TSH (0.300-4.500) uIu/ml Specimen Hemolysis Urine Color Urine Appearance (Clear) Urine pH (4.5-7.5) Ur Specific [place] (1.000-1.030) Urine Protein (Negative) Urine Glucose (UA) (Negative) Urine Ketones (Negative) Urine Blood (Negative) Urine Nitrite (Negative) Urine Bilirubin (Negative) Urine Urobilinogen (Negative) Ur Leukocyte Esterase (Negative) Urine RBC (0-4) /hpf Urine WBC (0-5) /hpf Ur Epithelial Cells (0-5) /lpf Urine Bacteria (Negative) Nasal Screen MRSA (PCR) (Negative) Salicylates Urine Opiates Screen (Neg) U Codeine Confrm GC/MS Ur Morphine (GC/MS) Ur Hydrocodone (GC/MS) Ur Norhydrocodone Ur Noroxycodone Urine Oxycodone (GC/MS) U Oxymorphone GC/MS Ur Methadone, Qual (Neg) Ur Hydromorphone (GC/MS) Acetaminophen Urine Barbiturates (Neg) Ur Phencyclidine (PCP) (Neg) U Amphetamin/Meth Scrn (Neg) MDMA (Ecstasy) Screen (Neg) U Benzodiazepines Scrn (Neg) Ur Cocaine Metabolite (Neg) U Marijuana (THC) Screen (Neg) Ethyl Alcohol mg/dL (0-3) mg/dl Influenza Type A (PCR) (Neg) Influenza Type B (PCR) (Neg) Miscellaneous Test Pending Miscellaneous Test 2 Pending 07/24/18 07/24/18 07/24/18 Range/Units 04:51 03:06 03:06 WBC (4.8-10.8) K/uL RBC (4.2-5.4) M/uL Hgb (12.0-16.0) g/dL Hct (37-47) % MCV (80-100) fL MCH (25-34) pg MCHC (32-36) g/dL RDW Std Deviation (36.4-46.3) fL RDW Coeff of Joanna (11.5-14.5) % Plt Count (130-400) K/uL MPV (7.4-10.4) fL Immature Gran % (Auto) % Neut % (Auto) % Lymph % (Auto) % [place] % (Auto) % Eos % (Auto) % Baso % (Auto) % Immature Gran # (Auto) (0.00-0.02) K/uL Neut # (Auto) (1.4-6.5) K/uL Lymph # (Auto) (1.2-3.4) K/uL [place] # (Auto) (0.11-0.59) K/uL Eos # (Auto) (0-0.5) K/uL Baso # (Auto) (0-0.2) K/uL PT 14.6 H (9.0-12.0) Seconds INR 1.5 H (0.9-1.1) APTT (21.0-31.0) Seconds PTT Ratio ABG pH (7.35-7.45) ABG pCO2 (35-46) mmHg ABG pO2 (80-95) mm/Hg ABG HCO3 (19-24) mmol/L ABG O2 Saturation (90-95) % ABG Base Excess (-9-1.8) mEq/L Shimon Test (Pos) Barometric Pressure mm/Hg Oxygen Given Sodium 141 (136-145) mmol/L Potassium 3.1 L D (3.5-5.1) mmol/L Chloride 104 (98-107) mmol/L Carbon Dioxide 23 (21-32) mmol/L Anion Gap 14.0 H (3-11) BUN 15 (7-18) mg/dl Creatinine 0.90 (0.6-1.2) mg/dl Est Cr Clr Drug Dosing 75.3 Est GFR ( Amer) 80.0 Est GFR (Non-Af Amer) 69.0 BUN/Creatinine Ratio 16.7 (10-20) Glucose 155 H (70-99) mg/dl POC Glucose (other) (70-99) mg/dl Estimat Average Glucose mg/dl Hemoglobin A1c (4.5-5.6) % Lactate (0.4-2.0) mmol/L Calcium 7.6 L D (8.5-10.1) mg/dl Phosphorus 0.9 L* (2.5-4.9) mg/dl Magnesium 2.0 (1.8-2.4) mg/dl Total Bilirubin 3.9 H (0.2-1) mg/dl Direct Bilirubin 2.7 H (0-0.2) mg/dl AST 137 H (15-37) U/L ALT 194 H (12-78) U/L Alkaline Phosphatase 107 (45-117) U/L Ammonia (11-32) umol/L Total Creatine Kinase (26-192) U/L Troponin I (0-0.045) ng/ml Total Protein 5.1 L D (6.4-8.2) gm/dl Albumin 2.4 L (3.4-5.0) gm/dl Globulin (2.5-4.0) gm/dl Albumin/Globulin Ratio (0.9-2) Lipase 173 (73-393) U/L TSH (0.300-4.500) uIu/ml Specimen Hemolysis Urine Color Urine Appearance (Clear) Urine pH (4.5-7.5) Ur Specific [place] (1.000-1.030) Urine Protein (Negative) Urine Glucose (UA) (Negative) Urine Ketones (Negative) Urine Blood (Negative) Urine Nitrite (Negative) Urine Bilirubin (Negative) Urine Urobilinogen (Negative) Ur Leukocyte Esterase (Negative) Urine RBC (0-4) /hpf Urine WBC (0-5) /hpf Ur Epithelial Cells (0-5) /lpf Urine Bacteria (Negative) Nasal Screen MRSA (PCR) (Negative) Salicylates Cancelled Urine Opiates Screen (Neg) U Codeine Confrm GC/MS Ur Morphine (GC/MS) Ur Hydrocodone (GC/MS) Ur Norhydrocodone Ur Noroxycodone Urine Oxycodone (GC/MS) U Oxymorphone GC/MS Ur Methadone, Qual (Neg) Ur Hydromorphone (GC/MS) Acetaminophen Cancelled Urine Barbiturates (Neg) Ur Phencyclidine (PCP) (Neg) U Amphetamin/Meth Scrn (Neg) MDMA (Ecstasy) Screen (Neg) U Benzodiazepines Scrn (Neg) Ur Cocaine Metabolite (Neg) U Marijuana (THC) Screen (Neg) Ethyl Alcohol mg/dL (0-3) mg/dl Influenza Type A (PCR) (Neg) Influenza Type B (PCR) (Neg) Miscellaneous Test Miscellaneous Test 2 07/24/18 07/24/18 07/24/18 Range/Units 03:06 03:06 03:06 WBC 8.83 (4.8-10.8) K/uL RBC 3.86 L (4.2-5.4) M/uL Hgb 11.4 L D (12.0-16.0) g/dL Hct 34.0 L (37-47) % MCV 88.1 (80-100) fL MCH 29.5 (25-34) pg MCHC 33.5 (32-36) g/dL RDW Std Deviation 41.6 (36.4-46.3) fL RDW Coeff of Joanna 12.9 (11.5-14.5) % Plt Count 113 L (130-400) K/uL MPV 10.9 H (7.4-10.4) fL Immature Gran % (Auto) 0.9 % Neut % (Auto) 87.7 % Lymph % (Auto) 6.9 % [place] % (Auto) 4.5 % Eos % (Auto) 0.0 % Baso % (Auto) 0.0 % Immature Gran # (Auto) 0.08 H (0.00-0.02) K/uL Neut # (Auto) 7.74 H (1.4-6.5) K/uL Lymph # (Auto) 0.61 L (1.2-3.4) K/uL [place] # (Auto) 0.40 (0.11-0.59) K/uL Eos # (Auto) 0.00 (0-0.5) K/uL Baso # (Auto) 0.00 (0-0.2) K/uL PT (9.0-12.0) Seconds INR (0.9-1.1) APTT (21.0-31.0) Seconds PTT Ratio ABG pH (7.35-7.45) ABG pCO2 (35-46) mmHg ABG pO2 (80-95) mm/Hg ABG HCO3 (19-24) mmol/L ABG O2 Saturation (90-95) % ABG Base Excess (-9-1.8) mEq/L Shimon Test (Pos) Barometric Pressure mm/Hg Oxygen Given Sodium (136-145) mmol/L Potassium (3.5-5.1) mmol/L Chloride (98-107) mmol/L Carbon Dioxide (21-32) mmol/L Anion Gap (3-11) BUN (7-18) mg/dl Creatinine (0.6-1.2) mg/dl Est Cr Clr Drug Dosing Est GFR ( Amer) Est GFR (Non-Af Amer) BUN/Creatinine Ratio (10-20) Glucose (70-99) mg/dl POC Glucose (other) (70-99) mg/dl Estimat Average Glucose 120 mg/dl Hemoglobin A1c 5.8 H (4.5-5.6) % Lactate 3.4 H* (0.4-2.0) mmol/L Calcium (8.5-10.1) mg/dl Phosphorus (2.5-4.9) mg/dl Magnesium (1.8-2.4) mg/dl Total Bilirubin (0.2-1) mg/dl Direct Bilirubin (0-0.2) mg/dl AST (15-37) U/L ALT (12-78) U/L Alkaline Phosphatase (45-117) U/L Ammonia (11-32) umol/L Total Creatine Kinase (26-192) U/L Troponin I (0-0.045) ng/ml Total Protein (6.4-8.2) gm/dl Albumin (3.4-5.0) gm/dl Globulin (2.5-4.0) gm/dl Albumin/Globulin Ratio (0.9-2) Lipase (73-393) U/L TSH (0.300-4.500) uIu/ml Specimen Hemolysis Urine Color Urine Appearance (Clear) Urine pH (4.5-7.5) Ur Specific [place] (1.000-1.030) Urine Protein (Negative) Urine Glucose (UA) (Negative) Urine Ketones (Negative) Urine Blood (Negative) Urine Nitrite (Negative) Urine Bilirubin (Negative) Urine Urobilinogen (Negative) Ur Leukocyte Esterase (Negative) Urine RBC (0-4) /hpf Urine WBC (0-5) /hpf Ur Epithelial Cells (0-5) /lpf Urine Bacteria (Negative) Nasal Screen MRSA (PCR) (Negative) Salicylates Urine Opiates Screen (Neg) U Codeine Confrm GC/MS Ur Morphine (GC/MS) Ur Hydrocodone (GC/MS) Ur Norhydrocodone Ur Noroxycodone Urine Oxycodone (GC/MS) U Oxymorphone GC/MS Ur Methadone, Qual (Neg) Ur Hydromorphone (GC/MS) Acetaminophen Urine Barbiturates (Neg) Ur Phencyclidine (PCP) (Neg) U Amphetamin/Meth Scrn (Neg) MDMA (Ecstasy) Screen (Neg) U Benzodiazepines Scrn (Neg) Ur Cocaine Metabolite (Neg) U Marijuana (THC) Screen (Neg) Ethyl Alcohol mg/dL (0-3) mg/dl Influenza Type A (PCR) (Neg) Influenza Type B (PCR) (Neg) Miscellaneous Test Miscellaneous Test 2 07/24/18 07/23/18 07/23/18 Range/Units 01:00 23:53 23:53 WBC (4.8-10.8) K/uL RBC (4.2-5.4) M/uL Hgb (12.0-16.0) g/dL Hct (37-47) % MCV (80-100) fL MCH (25-34) pg MCHC (32-36) g/dL RDW Std Deviation (36.4-46.3) fL RDW Coeff of Joanna (11.5-14.5) % Plt Count (130-400) K/uL MPV (7.4-10.4) fL Immature Gran % (Auto) % Neut % (Auto) % Lymph % (Auto) % [place] % (Auto) % Eos % (Auto) % Baso % (Auto) % Immature Gran # (Auto) (0.00-0.02) K/uL Neut # (Auto) (1.4-6.5) K/uL Lymph # (Auto) (1.2-3.4) K/uL [place] # (Auto) (0.11-0.59) K/uL Eos # (Auto) (0-0.5) K/uL Baso # (Auto) (0-0.2) K/uL PT 11.7 (9.0-12.0) Seconds INR 1.2 H (0.9-1.1) APTT 27.3 (21.0-31.0) Seconds PTT Ratio 1.0 ABG pH (7.35-7.45) ABG pCO2 (35-46) mmHg ABG pO2 (80-95) mm/Hg ABG HCO3 (19-24) mmol/L ABG O2 Saturation (90-95) % ABG Base Excess (-9-1.8) mEq/L Shimon Test (Pos) Barometric Pressure mm/Hg Oxygen Given Sodium (136-145) mmol/L Potassium (3.5-5.1) mmol/L Chloride (98-107) mmol/L Carbon Dioxide (21-32) mmol/L Anion Gap (3-11) BUN (7-18) mg/dl Creatinine (0.6-1.2) mg/dl Est Cr Clr Drug Dosing Est GFR ( Amer) Est GFR (Non-Af Amer) BUN/Creatinine Ratio (10-20) Glucose (70-99) mg/dl POC Glucose (other) (70-99) mg/dl Estimat Average Glucose mg/dl Hemoglobin A1c (4.5-5.6) % Lactate (0.4-2.0) mmol/L Calcium (8.5-10.1) mg/dl Phosphorus (2.5-4.9) mg/dl Magnesium (1.8-2.4) mg/dl Total Bilirubin (0.2-1) mg/dl Direct Bilirubin (0-0.2) mg/dl AST (15-37) U/L ALT (12-78) U/L Alkaline Phosphatase (45-117) U/L Ammonia (11-32) umol/L Total Creatine Kinase (26-192) U/L Troponin I (0-0.045) ng/ml Total Protein (6.4-8.2) gm/dl Albumin (3.4-5.0) gm/dl Globulin (2.5-4.0) gm/dl Albumin/Globulin Ratio (0.9-2) Lipase (73-393) U/L TSH (0.300-4.500) uIu/ml Specimen Hemolysis Urine Color Urine Appearance (Clear) Urine pH (4.5-7.5) Ur Specific [place] (1.000-1.030) Urine Protein (Negative) Urine Glucose (UA) (Negative) Urine Ketones (Negative) Urine Blood (Negative) Urine Nitrite (Negative) Urine Bilirubin (Negative) Urine Urobilinogen (Negative) Ur Leukocyte Esterase (Negative) Urine RBC (0-4) /hpf Urine WBC (0-5) /hpf Ur Epithelial Cells (0-5) /lpf Urine Bacteria (Negative) Nasal Screen MRSA (PCR) Negative (Negative) Salicylates Urine Opiates Screen (Neg) U Codeine Confrm GC/MS Ur Morphine (GC/MS) Ur Hydrocodone (GC/MS) Ur Norhydrocodone Ur Noroxycodone Urine Oxycodone (GC/MS) U Oxymorphone GC/MS Ur Methadone, Qual (Neg) Ur Hydromorphone (GC/MS) Acetaminophen Urine Barbiturates (Neg) Ur Phencyclidine (PCP) (Neg) U Amphetamin/Meth Scrn (Neg) MDMA (Ecstasy) Screen (Neg) U Benzodiazepines Scrn (Neg) Ur Cocaine Metabolite (Neg) U Marijuana (THC) Screen (Neg) Ethyl Alcohol mg/dL < 3.0 (0-3) mg/dl Influenza Type A (PCR) (Neg) Influenza Type B (PCR) (Neg) Miscellaneous Test Miscellaneous Test 2 07/23/18 07/23/18 07/23/18 Range/Units 22:11 22:11 22:10 WBC (4.8-10.8) K/uL RBC (4.2-5.4) M/uL Hgb (12.0-16.0) g/dL Hct (37-47) % MCV (80-100) fL MCH (25-34) pg MCHC (32-36) g/dL RDW Std Deviation (36.4-46.3) fL RDW Coeff of Joanna (11.5-14.5) % Plt Count (130-400) K/uL MPV (7.4-10.4) fL Immature Gran % (Auto) % Neut % (Auto) % Lymph % (Auto) % [place] % (Auto) % Eos % (Auto) % Baso % (Auto) % Immature Gran # (Auto) (0.00-0.02) K/uL Neut # (Auto) (1.4-6.5) K/uL Lymph # (Auto) (1.2-3.4) K/uL [place] # (Auto) (0.11-0.59) K/uL Eos # (Auto) (0-0.5) K/uL Baso # (Auto) (0-0.2) K/uL PT (9.0-12.0) Seconds INR (0.9-1.1) APTT (21.0-31.0) Seconds PTT Ratio ABG pH 7.38 (7.35-7.45) ABG pCO2 34 L (35-46) mmHg ABG pO2 108 H (80-95) mm/Hg ABG HCO3 19 (19-24) mmol/L ABG O2 Saturation 97.3 H (90-95) % ABG Base Excess -4.9 (-9-1.8) mEq/L Shimon Test POS (Pos) Barometric Pressure 728.5 mm/Hg Oxygen Given 4L Sodium (136-145) mmol/L Potassium (3.5-5.1) mmol/L Chloride (98-107) mmol/L Carbon Dioxide (21-32) mmol/L Anion Gap (3-11) BUN (7-18) mg/dl Creatinine (0.6-1.2) mg/dl Est Cr Clr Drug Dosing Est GFR ( Amer) Est GFR (Non-Af Amer) BUN/Creatinine Ratio (10-20) Glucose (70-99) mg/dl POC Glucose (other) (70-99) mg/dl Estimat Average Glucose mg/dl Hemoglobin A1c (4.5-5.6) % Lactate (0.4-2.0) mmol/L Calcium (8.5-10.1) mg/dl Phosphorus (2.5-4.9) mg/dl Magnesium (1.8-2.4) mg/dl Total Bilirubin (0.2-1) mg/dl Direct Bilirubin (0-0.2) mg/dl AST (15-37) U/L ALT (12-78) U/L Alkaline Phosphatase (45-117) U/L Ammonia (11-32) umol/L Total Creatine Kinase 88 (26-192) U/L Troponin I (0-0.045) ng/ml Total Protein (6.4-8.2) gm/dl Albumin (3.4-5.0) gm/dl Globulin (2.5-4.0) gm/dl Albumin/Globulin Ratio (0.9-2) Lipase (73-393) U/L TSH (0.300-4.500) uIu/ml Specimen Hemolysis Urine Color Urine Appearance (Clear) Urine pH (4.5-7.5) Ur Specific [place] (1.000-1.030) Urine Protein (Negative) Urine Glucose (UA) (Negative) Urine Ketones (Negative) Urine Blood (Negative) Urine Nitrite (Negative) Urine Bilirubin (Negative) Urine Urobilinogen (Negative) Ur Leukocyte Esterase (Negative) Urine RBC (0-4) /hpf Urine WBC (0-5) /hpf Ur Epithelial Cells (0-5) /lpf Urine Bacteria (Negative) Nasal Screen MRSA (PCR) (Negative) Salicylates Urine Opiates Screen (Neg) U Codeine Confrm GC/MS Ur Morphine (GC/MS) Ur Hydrocodone (GC/MS) Ur Norhydrocodone Ur Noroxycodone Urine Oxycodone (GC/MS) U Oxymorphone GC/MS Ur Methadone, Qual (Neg) Ur Hydromorphone (GC/MS) Acetaminophen Urine Barbiturates (Neg) Ur Phencyclidine (PCP) (Neg) U Amphetamin/Meth Scrn (Neg) MDMA (Ecstasy) Screen (Neg) U Benzodiazepines Scrn (Neg) Ur Cocaine Metabolite (Neg) U Marijuana (THC) Screen (Neg) Ethyl Alcohol mg/dL (0-3) mg/dl Influenza Type A (PCR) Neg for Influ A (Neg) Influenza Type B (PCR) Neg for Influ B (Neg) Miscellaneous Test Miscellaneous Test 2 07/23/18 07/23/18 07/23/18 Range/Units 21:55 21:55 21:55 WBC (4.8-10.8) K/uL RBC (4.2-5.4) M/uL Hgb (12.0-16.0) g/dL Hct (37-47) % MCV (80-100) fL MCH (25-34) pg MCHC (32-36) g/dL RDW Std Deviation (36.4-46.3) fL RDW Coeff of Joanna (11.5-14.5) % Plt Count (130-400) K/uL MPV (7.4-10.4) fL Immature Gran % (Auto) % Neut % (Auto) % Lymph % (Auto) % [place] % (Auto) % Eos % (Auto) % Baso % (Auto) % Immature Gran # (Auto) (0.00-0.02) K/uL Neut # (Auto) (1.4-6.5) K/uL Lymph # (Auto) (1.2-3.4) K/uL [place] # (Auto) (0.11-0.59) K/uL Eos # (Auto) (0-0.5) K/uL Baso # (Auto) (0-0.2) K/uL PT (9.0-12.0) Seconds INR (0.9-1.1) APTT (21.0-31.0) Seconds PTT Ratio ABG pH (7.35-7.45) ABG pCO2 (35-46) mmHg ABG pO2 (80-95) mm/Hg ABG HCO3 (19-24) mmol/L ABG O2 Saturation (90-95) % ABG Base Excess (-9-1.8) mEq/L Shimon Test (Pos) Barometric Pressure mm/Hg Oxygen Given Sodium (136-145) mmol/L Potassium (3.5-5.1) mmol/L Chloride (98-107) mmol/L Carbon Dioxide (21-32) mmol/L Anion Gap (3-11) BUN (7-18) mg/dl Creatinine (0.6-1.2) mg/dl Est Cr Clr Drug Dosing Est GFR ( Amer) Est GFR (Non-Af Amer) BUN/Creatinine Ratio (10-20) Glucose (70-99) mg/dl POC Glucose (other) (70-99) mg/dl Estimat Average Glucose mg/dl Hemoglobin A1c (4.5-5.6) % Lactate (0.4-2.0) mmol/L Calcium (8.5-10.1) mg/dl Phosphorus (2.5-4.9) mg/dl Magnesium (1.8-2.4) mg/dl Total Bilirubin (0.2-1) mg/dl Direct Bilirubin (0-0.2) mg/dl AST (15-37) U/L ALT (12-78) U/L Alkaline Phosphatase (45-117) U/L Ammonia (11-32) umol/L Total Creatine Kinase (26-192) U/L Troponin I (0-0.045) ng/ml Total Protein (6.4-8.2) gm/dl Albumin (3.4-5.0) gm/dl Globulin (2.5-4.0) gm/dl Albumin/Globulin Ratio (0.9-2) Lipase (73-393) U/L TSH (0.300-4.500) uIu/ml Specimen Hemolysis Urine Color Yellow Urine Appearance Clear (Clear) Urine pH 6.0 (4.5-7.5) Ur Specific [place] 1.015 (1.000-1.030) Urine Protein 1+ H (Negative) Urine Glucose (UA) 2+ H (Negative) Urine Ketones Trace H (Negative) Urine Blood Trace H (Negative) Urine Nitrite Negative (Negative) Urine Bilirubin 2+ H (Negative) Urine Urobilinogen Negative (Negative) Ur Leukocyte Esterase Negative (Negative) Urine RBC 0-4 (0-4) /hpf Urine WBC 0-5 (0-5) /hpf Ur Epithelial Cells 0-5 (0-5) /lpf Urine Bacteria Negative (Negative) Nasal Screen MRSA (PCR) (Negative) Salicylates Urine Opiates Screen Pos H (Neg) U Codeine Confrm GC/MS Pending Ur Morphine (GC/MS) Pending Ur Hydrocodone (GC/MS) Pending Ur Norhydrocodone Pending Ur Noroxycodone Pending Urine Oxycodone (GC/MS) Pending U Oxymorphone GC/MS Pending Ur Methadone, Qual Neg (Neg) Ur Hydromorphone (GC/MS) Pending Acetaminophen Urine Barbiturates Neg (Neg) Ur Phencyclidine (PCP) Neg (Neg) U Amphetamin/Meth Scrn Neg (Neg) MDMA (Ecstasy) Screen Neg (Neg) U Benzodiazepines Scrn Neg (Neg) Ur Cocaine Metabolite Neg (Neg) U Marijuana (THC) Screen Neg (Neg) Ethyl Alcohol mg/dL (0-3) mg/dl Influenza Type A (PCR) (Neg) Influenza Type B (PCR) (Neg) Miscellaneous Test Miscellaneous Test 2 07/23/18 07/23/18 07/23/18 Range/Units 21:33 21:33 21:33 WBC (4.8-10.8) K/uL RBC (4.2-5.4) M/uL Hgb (12.0-16.0) g/dL Hct (37-47) % MCV (80-100) fL MCH (25-34) pg MCHC (32-36) g/dL RDW Std Deviation (36.4-46.3) fL RDW Coeff of Joanna (11.5-14.5) % Plt Count (130-400) K/uL MPV (7.4-10.4) fL Immature Gran % (Auto) % Neut % (Auto) % Lymph % (Auto) % [place] % (Auto) % Eos % (Auto) % Baso % (Auto) % Immature Gran # (Auto) (0.00-0.02) K/uL Neut # (Auto) (1.4-6.5) K/uL Lymph # (Auto) (1.2-3.4) K/uL [place] # (Auto) (0.11-0.59) K/uL Eos # (Auto) (0-0.5) K/uL Baso # (Auto) (0-0.2) K/uL PT (9.0-12.0) Seconds INR (0.9-1.1) APTT (21.0-31.0) Seconds PTT Ratio ABG pH (7.35-7.45) ABG pCO2 (35-46) mmHg ABG pO2 (80-95) mm/Hg ABG HCO3 (19-24) mmol/L ABG O2 Saturation (90-95) % ABG Base Excess (-9-1.8) mEq/L [place] Test (Pos) Barometric Pressure mm/Hg Oxygen Given Sodium (136-145) mmol/L Potassium (3.5-5.1) mmol/L Chloride (98-107) mmol/L Carbon Dioxide (21-32) mmol/L Anion Gap (3-11) BUN (7-18) mg/dl Creatinine (0.6-1.2) mg/dl Est Cr Clr Drug Dosing Est GFR ( Amer) Est GFR (Non-Af Amer) BUN/Creatinine Ratio (10-20) Glucose (70-99) mg/dl POC Glucose (other) (70-99) mg/dl Estimat Average Glucose mg/dl Hemoglobin A1c (4.5-5.6) % Lactate (0.4-2.0) mmol/L Calcium (8.5-10.1) mg/dl Phosphorus (2.5-4.9) mg/dl Magnesium (1.8-2.4) mg/dl Total Bilirubin (0.2-1) mg/dl Direct Bilirubin (0-0.2) mg/dl AST (15-37) U/L ALT (12-78) U/L Alkaline Phosphatase (45-117) U/L Ammonia 19.9 (11-32) umol/L Total Creatine Kinase (26-192) U/L Troponin I (0-0.045) ng/ml Total Protein (6.4-8.2) gm/dl Albumin (3.4-5.0) gm/dl Globulin (2.5-4.0) gm/dl Albumin/Globulin Ratio (0.9-2) Lipase (73-393) U/L TSH (0.300-4.500) uIu/ml Specimen Hemolysis Urine Color Urine Appearance (Clear) Urine pH (4.5-7.5) Ur Specific [place] (1.000-1.030) Urine Protein (Negative) Urine Glucose (UA) (Negative) Urine Ketones (Negative) Urine Blood (Negative) Urine Nitrite (Negative) Urine Bilirubin (Negative) Urine Urobilinogen (Negative) Ur Leukocyte Esterase (Negative) Urine RBC (0-4) /hpf Urine WBC (0-5) /hpf Ur Epithelial Cells (0-5) /lpf Urine Bacteria (Negative) Nasal Screen MRSA (PCR) (Negative) Salicylates Cancelled Urine Opiates Screen (Neg) U Codeine Confrm GC/MS Ur Morphine (GC/MS) Ur Hydrocodone (GC/MS) Ur Norhydrocodone Ur Noroxycodone Urine Oxycodone (GC/MS) U Oxymorphone GC/MS Ur Methadone, Qual (Neg) Ur Hydromorphone (GC/MS) Acetaminophen Cancelled Urine Barbiturates (Neg) Ur Phencyclidine (PCP) (Neg) U Amphetamin/Meth Scrn (Neg) MDMA (Ecstasy) Screen (Neg) U Benzodiazepines Scrn (Neg) Ur Cocaine Metabolite (Neg) U Marijuana (THC) Screen (Neg) Ethyl Alcohol mg/dL (0-3) mg/dl Influenza Type A (PCR) (Neg) Influenza Type B (PCR) (Neg) Miscellaneous Test Pending Miscellaneous Test 2 Pending 07/23/18 07/23/18 07/23/18 Range/Units 21:33 20:33 20:33 WBC 17.13 H (4.8-10.8) K/uL RBC 4.65 (4.2-5.4) M/uL Hgb 14.6 (12.0-16.0) g/dL Hct 41.3 (37-47) % MCV 88.8 (80-100) fL MCH 31.4 (25-34) pg MCHC 35.4 (32-36) g/dL RDW Std Deviation 40.7 (36.4-46.3) fL RDW Coeff of Joanna 12.7 (11.5-14.5) % Plt Count 169 (130-400) K/uL MPV 11.2 H (7.4-10.4) fL Immature Gran % (Auto) 0.6 % Neut % (Auto) 91.5 % Lymph % (Auto) 3.3 % [place] % (Auto) 4.5 % Eos % (Auto) 0.0 % Baso % (Auto) 0.1 % Immature Gran # (Auto) 0.10 H (0.00-0.02) K/uL Neut # (Auto) 15.69 H (1.4-6.5) K/uL Lymph # (Auto) 0.56 L (1.2-3.4) K/uL [place] # (Auto) 0.77 H (0.11-0.59) K/uL Eos # (Auto) 0.00 (0-0.5) K/uL Baso # (Auto) 0.01 (0-0.2) K/uL PT (9.0-12.0) Seconds INR (0.9-1.1) APTT (21.0-31.0) Seconds PTT Ratio ABG pH (7.35-7.45) ABG pCO2 (35-46) mmHg ABG pO2 (80-95) mm/Hg ABG HCO3 (19-24) mmol/L ABG O2 Saturation (90-95) % ABG Base Excess (-9-1.8) mEq/L Shimon Test (Pos) Barometric Pressure mm/Hg Oxygen Given Sodium 135 L (136-145) mmol/L Potassium 3.9 (3.5-5.1) mmol/L Chloride 101 (98-107) mmol/L Carbon Dioxide 22 (21-32) mmol/L Anion Gap 12.0 H (3-11) BUN 15 (7-18) mg/dl Creatinine 1.08 (0.6-1.2) mg/dl Est Cr Clr Drug Dosing Not Reportable Est GFR ( Amer) 64.2 Est GFR (Non-Af Amer) 55.4 BUN/Creatinine Ratio 13.6 (10-20) Glucose 211 H (70-99) mg/dl POC Glucose (other) (70-99) mg/dl Estimat Average Glucose mg/dl Hemoglobin A1c (4.5-5.6) % Lactate 4.2 H* (0.4-2.0) mmol/L Calcium 9.5 (8.5-10.1) mg/dl Phosphorus (2.5-4.9) mg/dl Magnesium 1.7 L (1.8-2.4) mg/dl Total Bilirubin 4.7 H (0.2-1) mg/dl Direct Bilirubin (0-0.2) mg/dl AST 307 H (15-37) U/L ALT 322 H (12-78) U/L Alkaline Phosphatase 195 H (45-117) U/L Ammonia (11-32) umol/L Total Creatine Kinase (26-192) U/L Troponin I < 0.015 (0-0.045) ng/ml Total Protein 7.5 (6.4-8.2) gm/dl Albumin 3.7 (3.4-5.0) gm/dl Globulin 3.8 (2.5-4.0) gm/dl Albumin/Globulin Ratio 1.0 (0.9-2) Lipase (73-393) U/L TSH 0.411 (0.300-4.500) uIu/ml Specimen Hemolysis Urine Color Urine Appearance (Clear) Urine pH (4.5-7.5) Ur Specific [place] (1.000-1.030) Urine Protein (Negative) Urine Glucose (UA) (Negative) Urine Ketones (Negative) Urine Blood (Negative) Urine Nitrite (Negative) Urine Bilirubin (Negative) Urine Urobilinogen (Negative) Ur Leukocyte Esterase (Negative) Urine RBC (0-4) /hpf Urine WBC (0-5) /hpf Ur Epithelial Cells (0-5) /lpf Urine Bacteria (Negative) Nasal Screen MRSA (PCR) (Negative) Salicylates Urine Opiates Screen (Neg) U Codeine Confrm GC/MS Ur Morphine (GC/MS) Ur Hydrocodone (GC/MS) Ur Norhydrocodone Ur Noroxycodone Urine Oxycodone (GC/MS) U Oxymorphone GC/MS Ur Methadone, Qual (Neg) Ur Hydromorphone (GC/MS) Acetaminophen Urine Barbiturates (Neg) Ur Phencyclidine (PCP) (Neg) U Amphetamin/Meth Scrn (Neg) MDMA (Ecstasy) Screen (Neg) U Benzodiazepines Scrn (Neg) Ur Cocaine Metabolite (Neg) U Marijuana (THC) Screen (Neg) Ethyl Alcohol mg/dL (0-3) mg/dl Influenza Type A (PCR) (Neg) Influenza Type B (PCR) (Neg) Miscellaneous Test Miscellaneous Test 2 Diagnostic Findings ABDOMEN AND PELVIS CT WITH IV CONTRAST CT DOSE: HISTORY: elevated liver enzymes/bili TECHNIQUE: Multiaxial CT images of the abdomen and pelvis were performed following the use of intravenous contrast. A dose lowering technique was utilized adhering to the principles of ALARA. COMPARISON STUDY: None. FINDINGS: Bibasilar densities are better appreciated on the same day chest CT. Nasogastric tube terminates in the distal stomach. Small fluid-filled hiatus hernia. No pneumoperitoneum. No pneumatosis. No fractures within the visualized osseous structures. No hepatic or splenic masses. The adrenal glands, pancreas, and kidneys are unremarkable. There is moderate intra and extra hepatic bile duct dilatation. The common bile duct measures up to 1.4 cm in diameter. No definite stone identified within the common bile duct by CT. There is mild enhancement of the wall of the common bile duct. The gallbladder wall also demonstrates mild enhancement. There is trace pericholecystic fluid. The gallbladder is mildly distended. No retroperitoneal lymphadenopathy. The bladder is completely decompressed by a Yanes catheter. The uterus is surgically absent. A few colonic diverticula. No evidence for diverticulitis. No bowel wall thickening or obstruction. Normal appendix. There is a 2 cm fat-containing lesion within the left ovary. Therefore, this is consistent with a dermoid. IMPRESSION: 1. Moderate intra and extrahepatic bile duct dilatation with enhancement of the wall of the common bile duct and gallbladder. There is also trace pericholecystic fluid. Therefore, this could represent an acute cholecystitis or ascending cholangitis. 2. Nasogastric tube terminates in the stomach. 3. There is a 2 cm fat-containing lesion within the left ovary. Therefore, this is consistent with a dermoid. [place] ERCP biliary ductal CLINICAL HISTORY: 62 years-old Female presenting with ERCP. TECHNIQUE: Fluoroscopy was provided for endoscopic retrograde cholangiopancreatography. 7 fluoroscopic image(s) recorded. COMPARISON: CT from 07/23/2018. FINDINGS: Procedure: An endoscope projects over the descending duodenum. A catheter was advanced into the common bile duct. The common bile duct was opacified with contrast and several filling defects were noted consistent with choledocholithiasis. Additionally, multiple filling defects evident in the cystic duct. Partial opacification of the gallbladder. The catheter was advanced into the intrahepatic ducts, which were also opacified and not significantly dilated. Peritoneal spillage: No evidence of peritoneal spillage of contrast. Extrahepatic bile ducts: Dilated common bile duct with suspected choledocholithiasis. Contrast not visualized extending into the small bowel. Intrahepatic bile ducts: There is no intrahepatic bile duct dilatation. Fluoroscopy dosage (mGy): 22.43. Fluoroscopy time: 97.3 seconds. Number or time of high level fluoroscopy (HLF), digital spot, or digital subtraction images: 0. IMPRESSION: Choledocholithiasis and calculi within the cystic duct. No significant intrahepatic biliary ductal dilatation.
[2018-07-24 12:27] LABS: Hematocrit (blood only) 33.2 % (37-47); Hemoglobin 11.1 g/dL (12.0-16.0); Mean Corpuscular Hgb Conc 33.4 g/dL (32-36); Mean Corpuscular Volume 88.1 fL (80-100); Mean Platelet Volume 10.7 fL (7.4-10.4); Platelet Count 102 K/uL (130-400); RDW Coefficient of Variation 13.5 % (11.5-14.5); RDW Standard Deviation 43.5 fL (36.4-46.3); Red Blood Count 3.77 M/uL (4.2-5.4); White Blood Count 13.93 K/uL (4.8-10.8)
--- NOTE | 2018-07-24 12:29 | Gastroenterology Progress Note ---
Date of Service July 24, 2018 Assessment & Plan (1) Hyperbilirubinemia: Cholangitis-status post ERCP Doing much better now, afebrile blood pressures have normalized, and mental status is improved and extubated. We will follow LFTs and consider continuation of Mucomyst given unclear Tylenol ingestion. Surgical consultation Call with questions (2) Cholangitis: Subjective Patient doing dramatically better post ERCP, off vasopressors and extubated. Physical Exam Constitutional: WD/WN, vitals as above Cardiovascular: RRR, no murmur, no edema Gastrointestinal (Abdomen): normal bowel sounds, soft, nontender, no hepatosplenomegaly Results & Data Vital Signs (Past 12 Hours) Vital Signs Temp Pulse Pulse Resp BP BP Pulse Ox 07/24/18 11:00 110 H 26 H 161/72 H 96 07/24/18 09:31 124 H 140/72 98 07/24/18 09:01 107 H 119/59 L 98 07/24/18 08:31 100 H 128/71 100 07/24/18 08:01 99 H 134/73 99 07/24/18 07:34 98 H 20 99 07/24/18 07:31 96 H 117/64 98 07/24/18 07:00 37.7 C H 99 H 96 H 20 103/62 103/62 99 07/24/18 06:40 106 H 110/62 97 07/24/18 06:36 107 H 127/66 97 07/24/18 06:31 108 H 97/56 L 98 07/24/18 06:30 107 H 16 98 07/24/18 06:26 108 H 105/56 L 98 07/24/18 06:19 108 H 94/54 L 96 07/24/18 05:15 20 07/24/18 05:00 99 H 20 84/46 L 99 07/24/18 04:00 38.9 C H 94 H 20 87/44 L 97 07/24/18 03:00 100 H 21 84/43 L 97 07/24/18 02:00 102 H 105 H 20 128/61 98 07/24/18 01:21 39.3 C H 106 H 21 101/66 92 07/24/18 01:05 39.3 C H 108 H 20 101/66 96 07/24/18 00:50 39.1 C H 07/24/18 00:31 124 H 172/75 H 97 Pulse Ox 07/24/18 11:00 07/24/18 09:31 07/24/18 09:01 07/24/18 08:31 07/24/18 08:01 07/24/18 07:34 07/24/18 07:31 07/24/18 07:00 07/24/18 06:40 07/24/18 06:36 07/24/18 06:31 07/24/18 06:30 07/24/18 06:26 07/24/18 06:19 07/24/18 05:15 07/24/18 05:00 07/24/18 04:00 07/24/18 03:00 07/24/18 02:00 07/24/18 01:21 07/24/18 01:05 96 07/24/18 00:50 07/24/18 00:31
[2018-07-24 12:37] LABS: INR 1.7 (0.9-1.1); Prothrombin Time 16.5 Seconds (9.0-12.0)
[2018-07-24 12:47] LABS: BUN Creatinine Ratio 16.9 (10-20); Calcium 7.5 mg/dl (8.5-10.1); Creatinine Clr Calc Pharmacy 86.9 ml/min; Est GFR (African American) 95.1; Est GFR (Non-African American) 82.1
[2018-07-24 12:58] LABS: Albumin Globulin Ratio 1.2 (0.9-2); Bilirubin,Total 4.2 mg/dl (0.2-1); Globulin 2.6 gm/dl (2.5-4.0); Total Protein 5.6 gm/dl (6.4-8.2)
[2018-07-24 13:02] LABS: Eosinophils # (auto) 0.01 K/uL (0-0.5); Eosinophils % (auto) 0.1 %; Immature Granulocytes # (auto) 0.14 K/uL (0.00-0.02); Lymphocytes # (auto) 0.61 K/uL (1.2-3.4); Lymphocytes % (auto) 4.4 %; Monocytes # (auto) 0.71 K/uL (0.11-0.59); Monocytes % (auto) 5.1 %; Neutrophils # (auto) 12.46 K/uL (1.4-6.5); Neutrophils % (auto) 89.4 %
[2018-07-24] MEDS ORDERED: HEPARIN SOD 5,000 UNIT/0.5 ML VIAL SQ SCH (14:00)
[2018-07-24] MEDS ORDERED: VANCOMYCIN HCL 1,500 MG in SODIUM CHLORIDE 0.9% 500 ML IV SCH (14:00)
[2018-07-24] MEDS: HYDROmorphone INJ 0.5 MG/0.5 ML SYR IV PRN ×2 (16:25→19:47)
--- NOTE | 2018-07-24 17:14 | Ultrasound Report ---
ABDOMINAL ULTRASOUND, RIGHT UPPER QUADRANT HISTORY: Right upper quadrant pain. r/o acute cholecystitis. COMPARISON: Abdomen and pelvis CT 07/23/2018. FINDINGS: Pancreas: The pancreatic tail is obscured by overlying bowel gas. The remaining portions of the pancr eas are within normal limits. Liver: Unremarkable. Gallbladder: The gallbladder wall is thickening of the 5 mm. There is a small amount of pericholecyst ic fluid. There is a sludge-filled gallbladder. CBD: The common bile duct is mildly distended at 7 mm. However, this is improved compared the prior s tudy. There is a common bile duct stent identified. Right kidney: No hydronephrosis. IMPRESSION: 1. The gallbladder is filled with sludge and demonstrates a thickened wall and a small amount of myla cholecystic fluid. This is concerning for acute cholecystitis. Clinical correlation recommended. 2. Interval decompression of the common bile duct. The common bile duct stent is in place. Electronically signed by: Parmjit Chowdhury M.D. 07/24/2018 5:12 PM
[2018-07-24 18:05] LABS: INR 1.7 (0.9-1.1); Partial Thromboplastin Ratio 1.4; Partial Thromboplastin Time 38.9 Seconds (21.0-31.0); Prothrombin Time 16.6 Seconds (9.0-12.0)
[2018-07-24 18:20] LABS: Albumin Level 2.8 gm/dl (3.4-5.0); Bilirubin Direct 3.2 mg/dl (0-0.2); Bilirubin,Total 3.8 mg/dl (0.2-1); Total Protein 5.7 gm/dl (6.4-8.2)
[2018-07-24] MEDS ORDERED: HYDROmorphone INJ 1 MG/ML SYRINGE IV STA (21:34)
[2018-07-24] MEDS: GABAPENTIN 100 MG CAP PO SCH (21:53)
[2018-07-24] MEDS: MoRPHine SULFATE CR 60 MG TABCR PO SCH (21:53)
[2018-07-24 21:57] LABS: Hematocrit (blood only) 30.9 % (37-47); Hemoglobin 10.8 g/dL (12.0-16.0); Mean Corpuscular Volume 86.8 fL (80-100); RDW Coefficient of Variation 13.8 % (11.5-14.5); RDW Standard Deviation 44.3 fL (36.4-46.3); Red Blood Count 3.56 M/uL (4.2-5.4); White Blood Count 12.11 K/uL (4.8-10.8)
[2018-07-24 22:10] LABS: Albumin Level 2.9 gm/dl (3.4-5.0); BUN Creatinine Ratio 19.1 (10-20); Bilirubin Direct 2.7 mg/dl (0-0.2); Calcium 7.9 mg/dl (8.5-10.1); Creatinine Clr Calc Pharmacy 102.7 ml/min; Est GFR (African American) 110.5; Est GFR (Non-African American) 95.3; Potassium 3.7 mmol/L (3.5-5.1)
[2018-07-24 22:13] LABS: Bilirubin,Total 3.7 mg/dl (0.2-1); Total Protein 5.6 gm/dl (6.4-8.2)
[2018-07-24 22:41] LABS: Mean Platelet Volume 10.7 fL (7.4-10.4); Platelet Count 81 K/uL (130-400)
[2018-07-24 22:51] LABS: Basophils # (auto) 0.01 K/uL (0-0.2); Basophils % (auto) 0.1 %; Echinocytes 1+; Eosinophils # (auto) 0.01 K/uL (0-0.5); Eosinophils % (auto) 0.1 %; Immature Granulocytes # (auto) 0.07 K/uL (0.00-0.02); Immature Granulocytes % (auto) 0.6 %; Lymphocytes # (auto) 0.69 K/uL (1.2-3.4); Lymphocytes % (auto) 5.7 %; Monocytes # (auto) 0.63 K/uL (0.11-0.59); Monocytes % (auto) 5.2 %; Neutrophils % (auto) 88.3 %
[2018-07-25] MEDS: metroNIDAZOLE 500 MG/100 ML BAG IV SCH ×3 (00:52→16:25)
[2018-07-25] MEDS: CEFEPIME 2,000 MG in SYRINGE 7.5 ML IV SCH ×3 (01:45→18:02)
[2018-07-25] MEDS: HYDROmorphone INJ 0.5 MG/0.5 ML SYR IV PRN ×3 (02:23→20:12)
[2018-07-25] MEDS ORDERED: METOPROLOL TARTRATE 1 MG/ML VIAL IV PRN (04:36)
[2018-07-25 06:43] LABS: Hematocrit (blood only) 30.3 % (37-47); Hemoglobin 10.3 g/dL (12.0-16.0); Mean Corpuscular Volume 88.9 fL (80-100); RDW Standard Deviation 45.8 fL (36.4-46.3); Red Blood Count 3.41 M/uL (4.2-5.4); White Blood Count 9.11 K/uL (4.8-10.8)
[2018-07-25 06:49] LABS: INR 1.4 (0.9-1.1); Prothrombin Time 13.8 Seconds (9.0-12.0)
[2018-07-25 06:59] LABS: Mean Platelet Volume 10.9 fL (7.4-10.4); Platelet Count 81 K/uL (130-400)
[2018-07-25 07:16] LABS: Alanine Aminotransferase 110 U/L (12-78); Albumin Level 2.8 gm/dl (3.4-5.0); Alkaline Phosphatase 142 U/L (45-117); BUN Creatinine Ratio 20.5 (10-20); Bilirubin,Total 3.7 mg/dl (0.2-1); Blood Urea Nitrogen 14 mg/dl (7-18); Calcium 8.2 mg/dl (8.5-10.1); Carbon Dioxide 20 mmol/L (21-32); Chloride 115 mmol/L (98-107); Creatinine Clr Calc Pharmacy 103.7 ml/min; Est GFR (Non-African American) 94.9; Glucose 112 mg/dl (70-99); Phosphorus 2.4 mg/dl (2.5-4.9); Sodium 143 mmol/L (136-145); Total Protein 5.7 gm/dl (6.4-8.2)
[2018-07-25 07:19] LABS: Basophils # (auto) 0.02 K/uL (0-0.2); Basophils % (auto) 0.2 %; Echinocytes 1+; Eosinophils # (auto) 0.04 K/uL (0-0.5); Eosinophils % (auto) 0.4 %; Immature Granulocytes # (auto) 0.03 K/uL (0.00-0.02); Immature Granulocytes % (auto) 0.3 %; Lymphocytes % (auto) 7.7 %; Monocytes # (auto) 0.52 K/uL (0.11-0.59); Monocytes % (auto) 5.7 %; Neutrophils % (auto) 85.7 %
[2018-07-25] MEDS: ENOXAPARIN INJ 40 MG/0.4 ML SYR SQ SCH (07:35)
[2018-07-25] MEDS: GABAPENTIN 100 MG CAP PO SCH ×3 (07:36→20:44)
[2018-07-25] MEDS: PANTOprazole 40 MG TAB PO SCH (07:36)
[2018-07-25] MEDS: INSULIN ASPART 100 UNITS/ML 3 ML PEN SC SCH ×4 (09:44→21:14)
--- NOTE | 2018-07-25 09:54 | XRay Report ---
CHEST AND ABDOMEN 2 VIEWS HISTORY: abdominal pain after ERCP COMPARISON: Abdomen and pelvis CT 07/23/2018. FINDINGS: There are 2 common bile duct stents in place. Pneumobilia is identified. This suggests santos ncy of the stents. The bowel gas pattern is unremarkable. No evidence for bowel obstruction. S-shaped scoliosis of the thoracolumbar spine. Mild interstitial pulmonary edema with small bilateral pleural effusions and bibasilar densities. The heart is borderline enlarged. IMPRESSION: 1. The common bile duct stent in place. 2. Mild interstitial pulmonary edema and small bilateral pleural effusions. Electronically signed by: Parmjit Chowdhury M.D. 07/25/2018 9:52 AM
--- NOTE | 2018-07-25 10:31 | Gastroenterology Progress Note ---
Date of Service July 25, 2018 Assessment & Plan (1) Hyperbilirubinemia: Cholangitis-status post ERCP Doing much better now, afebrile blood pressures have normalized, and mental status is improved and extubated. We will follow LFTs and consider continuation of Mucomyst given unclear Tylenol ingestion. Surgical consultation Call with questions (2) Cholangitis: Subjective Patient transferred out of ICU, patient transferred out of ICU 62-year-old female with a history of chronic back pain presented with more confusion and fevers. An LP was attempted in the ER but unsuccessful secondary to kyphoscoliosis. She was noted to have pericolic fluid and gallstones. She developed septic shock and was intubated for airway protection as she was obtunded. She was started on broad-spectrum antibiotics and was taken to the OR by gastroenterology to undergo an ERCP with stent placement in the common bile duct and removal of stone. She was returned to the ICU and successfully extubated. She was transferred to the floor and is still somewhat lethargic after her ex extubation. She does report some abdominal pain as well as a headache. Physical Exam Constitutional: WD/WN, vitals as above Cardiovascular: RRR, no murmur, no edema Gastrointestinal (Abdomen): normal bowel sounds, soft, nontender, no hepatosplenomegaly Results & Data Vital Signs (Past 12 Hours) Vital Signs Temp Pulse Pulse Resp BP BP Pulse Ox 07/25/18 08:50 37.2 C 91 07/25/18 07:47 38.2 C H 98 H 18 148/79 H 95 07/25/18 07:29 117 H 170/78 H 07/25/18 03:21 37.1 C 118 H 18 168/77 H 97 07/25/18 00:00 120 H 07/24/18 23:36 36.9 C 115 H 18 146/82 H 92
--- NOTE | 2018-07-25 10:37 | Gastroenterology Progress Note ---
Date of Service July 25, 2018 Assessment & Plan (1) Hyperbilirubinemia: Cholangitis-status post ERCP Improved, still with 1 mild fever last night, hemodynamics are stable without augmentation. She has a bit of abdominal pain but no evidence of any post ERCP pancreatitis, abdominal x-ray was obtained with normal bowel gas pattern, no free air, pneumobilia was present suggesting patency of the biliary ducts. We will follow LFTs suggest continuation of Mucomyst given unclear Tylenol ingestion. INR is improved, think it is likely mostly related to DIC. Consider delirium from either ICU, acute illness, or possibly medication withdrawal. Surgical consultation If patient continues to have fever consider CT scan of the abdomen with IV contrast, Continue IV antibiotics cefepime monotherapy should be reasonable. Call with questions Subjective Patient transferred out of ICU, extubated, still with some delirium, saw twice today over period of couple of hours and had mild improvement of mental status. No acute distress Physical Exam Physical Exam: Lethargic, easily arousable, oriented to person. Heart is tachycardic but regular Abdomen shows normal active sounds mild diffuse tenderness but mainly in the epigastrium as well as hypogastrium No peripheral edema Swollen and bruised lips Restless in bed Results & Data Vital Signs (Past 12 Hours) Vital Signs Temp Pulse Pulse Resp BP BP Pulse Ox 07/25/18 08:50 37.2 C 91 07/25/18 07:47 38.2 C H 98 H 18 148/79 H 95 07/25/18 07:29 117 H 170/78 H 07/25/18 03:21 37.1 C 118 H 18 168/77 H 97 07/25/18 00:00 120 H 07/24/18 23:36 36.9 C 115 H 18 146/82 H 92
[2018-07-25] MEDS: MoRPHine SULFATE CR 60 MG TABCR PO SCH ×2 (11:22→20:49)
--- NOTE | 2018-07-25 11:26 | Surgery Progress Note ---
Date of Service pt is stable, less abdominal pain, no nausea, no vomiting, no fever, (T) bili 3.7, U/S study gallbladder sludge, acute cholecystitis July 25, 2018 Assessment & Plan (1) Cholangitis: 62 year-old female who presented to emergency department last evening with increasing back pain and altered mental status with hallucinations that began yesterday. Found to have dilated CBD and wall enhancement of CBD and gallbladder on CT scan concerning for possible cholecystitis or cholangitis. Elevated t. bili at 4.7. Leukocytosis of 17K. Elevated LFTs. Lactic acid 4. Underwent emergent ERCP and was found to have cholangitis with choledocholithiasis. Leukocytosis improved to 8k today. Improvement of LFTS. T. bili still elevated at 3.9. Patient still with altered mental status/confused. Plan: Recommend ultrasound to further evaluate gallbladder and rule out acute cholecystitis. Do not believe she would be able to tolerate HIDA scan given altered mental status. If there are no signs of acute cholecystitis could get her through this acute phase and discuss elective cholecystectomy as she has CBD stent present. Would continue IV Abx, IV Fluids, NPO, Zofran prn nausea. Follow labs (t. bili and LFTS, lactic acid). Discussed with her baseline functioning status. She does not ambulate much at home and is in bed majority of the day. He does all of the cooking and cleaning. She does not use any assistive devices for ambulation. Will closely follow along Await results of US to determine timing of cholecystectomy. Dr. Saucedo has seen and examined patient, developed assessment and plan. 07/25/2018, 11:28am normal WBC, still high (T)bili 3.7 possible schedule to do laparoscopic cholecystectomy 0n 07/28/2018 D/W benefits, risks and alternatives of the surgery, pt's agrees with the plan, I answered all questions, (2) Acute alteration in mental status: (3) Choledocholithiasis: Subjective Patient transferred out of ICU, extubated, still with some delirium, saw twice today over period of couple of hours and had mild improvement of mental status. No acute distress Physical Exam Constitutional: WD/WN, vitals as above Neck: trachea midline, no thyromegaly Respiratory: normal respiratory effort, lungs clear to auscultation normal respiratory effort Cardiovascular: RRR, no murmur, no edema Rate/Rhythm: regular rate and regular rhythm Gastrointestinal (Abdomen): Percussion/Palpation: + abdomen tender and abdomen soft slightly tenderness at RUQ, no rebound pain, no guarding, no rigidity, Neurologic: awake Results & Data Vital Signs (Past 12 Hours) Vital Signs Temp Pulse Pulse Resp BP BP Pulse Ox 07/25/18 08:50 37.2 C 91 07/25/18 08:00 116 H 07/25/18 07:47 38.2 C H 98 H 18 148/79 H 95 07/25/18 07:29 117 H 170/78 H 07/25/18 03:21 37.1 C 118 H 18 168/77 H 97 07/25/18 00:00 120 H 07/24/18 23:36 36.9 C 115 H 18 146/82 H 92 Laboratory Results Abnormal lab results 07/24/18 07/24/18 07/24/18 Range/Units 12:19 12:19 12:19 WBC 13.93 H (4.8-10.8) K/uL RBC 3.77 L (4.2-5.4) M/uL Hgb 11.1 L (12.0-16.0) g/dL Hct 33.2 L (37-47) % Plt Count 102 L (130-400) K/uL MPV 10.7 H (7.4-10.4) fL Immature Gran # (Auto) 0.14 H (0.00-0.02) K/uL Neut # (Auto) 12.46 H (1.4-6.5) K/uL Lymph # (Auto) 0.61 L (1.2-3.4) K/uL [place] # (Auto) 0.71 H (0.11-0.59) K/uL PT 16.5 H (9.0-12.0) Seconds INR 1.7 H (0.9-1.1) APTT (21.0-31.0) Seconds Chloride 111 H (98-107) mmol/L Carbon Dioxide 19 L (21-32) mmol/L BUN/Creatinine Ratio (10-20) Glucose 107 H (70-99) mg/dl POC Glucose (70-99) Calcium 7.5 L (8.5-10.1) mg/dl Phosphorus (2.5-4.9) mg/dl Total Bilirubin 4.2 H (0.2-1) mg/dl Direct Bilirubin (0-0.2) mg/dl AST 96 H (15-37) U/L ALT 154 H (12-78) U/L Alkaline Phosphatase (45-117) U/L Total Protein 5.6 L (6.4-8.2) gm/dl Albumin 3.0 L (3.4-5.0) gm/dl 07/24/18 07/24/18 07/24/18 Range/Units 12:39 17:24 17:43 WBC (4.8-10.8) K/uL RBC (4.2-5.4) M/uL Hgb (12.0-16.0) g/dL Hct (37-47) % Plt Count (130-400) K/uL MPV (7.4-10.4) fL Immature Gran # (Auto) (0.00-0.02) K/uL Neut # (Auto) (1.4-6.5) K/uL Lymph # (Auto) (1.2-3.4) K/uL [place] # (Auto) (0.11-0.59) K/uL PT 16.6 H (9.0-12.0) Seconds INR 1.7 H (0.9-1.1) APTT 38.9 H (21.0-31.0) Seconds Chloride (98-107) mmol/L Carbon Dioxide (21-32) mmol/L BUN/Creatinine Ratio (10-20) Glucose (70-99) mg/dl POC Glucose 104 H 101 H (70-99) Calcium (8.5-10.1) mg/dl Phosphorus (2.5-4.9) mg/dl Total Bilirubin (0.2-1) mg/dl Direct Bilirubin (0-0.2) mg/dl AST (15-37) U/L ALT (12-78) U/L Alkaline Phosphatase (45-117) U/L Total Protein (6.4-8.2) gm/dl Albumin (3.4-5.0) gm/dl 07/24/18 07/24/18 07/24/18 Range/Units 17:43 21:45 21:45 WBC 12.11 H (4.8-10.8) K/uL RBC 3.56 L (4.2-5.4) M/uL Hgb 10.8 L (12.0-16.0) g/dL Hct 30.9 L (37-47) % Plt Count 81 L (130-400) K/uL MPV 10.7 H (7.4-10.4) fL Immature Gran # (Auto) 0.07 H (0.00-0.02) K/uL Neut # (Auto) 10.70 H (1.4-6.5) K/uL Lymph # (Auto) 0.69 L (1.2-3.4) K/uL [place] # (Auto) 0.63 H (0.11-0.59) K/uL PT (9.0-12.0) Seconds INR (0.9-1.1) APTT (21.0-31.0) Seconds Chloride 114 H (98-107) mmol/L Carbon Dioxide 19 L (21-32) mmol/L BUN/Creatinine Ratio (10-20) Glucose 115 H (70-99) mg/dl POC Glucose (70-99) Calcium 7.9 L (8.5-10.1) mg/dl Phosphorus (2.5-4.9) mg/dl Total Bilirubin 3.8 H 3.7 H (0.2-1) mg/dl Direct Bilirubin 3.2 H 2.7 H (0-0.2) mg/dl AST 82 H 77 H (15-37) U/L ALT 132 H 128 H (12-78) U/L Alkaline Phosphatase (45-117) U/L Total Protein 5.7 L 5.6 L (6.4-8.2) gm/dl Albumin 2.8 L 2.9 L (3.4-5.0) gm/dl 07/25/18 07/25/18 07/25/18 Range/Units 06:27 06:27 06:27 WBC (4.8-10.8) K/uL RBC 3.41 L (4.2-5.4) M/uL Hgb 10.3 L (12.0-16.0) g/dL Hct 30.3 L (37-47) % Plt Count 81 L (130-400) K/uL MPV 10.9 H (7.4-10.4) fL Immature Gran # (Auto) 0.03 H (0.00-0.02) K/uL Neut # (Auto) 7.80 H (1.4-6.5) K/uL Lymph # (Auto) 0.70 L (1.2-3.4) K/uL [place] # (Auto) (0.11-0.59) K/uL PT 13.8 H (9.0-12.0) Seconds INR 1.4 H (0.9-1.1) APTT (21.0-31.0) Seconds Chloride 115 H (98-107) mmol/L Carbon Dioxide 20 L (21-32) mmol/L BUN/Creatinine Ratio 20.5 H (10-20) Glucose 112 H (70-99) mg/dl POC Glucose (70-99) Calcium 8.2 L (8.5-10.1) mg/dl Phosphorus 2.4 L D (2.5-4.9) mg/dl Total Bilirubin 3.7 H (0.2-1) mg/dl Direct Bilirubin (0-0.2) mg/dl AST (15-37) U/L ALT 110 H (12-78) U/L Alkaline Phosphatase 142 H (45-117) U/L Total Protein 5.7 L (6.4-8.2) gm/dl Albumin 2.8 L (3.4-5.0) gm/dl Diagnostic Findings ABDOMINAL ULTRASOUND, RIGHT UPPER QUADRANT HISTORY: Right upper quadrant pain. r/o acute cholecystitis. COMPARISON: Abdomen and pelvis CT 07/23/2018. FINDINGS: Pancreas: The pancreatic tail is obscured by overlying bowel gas. The remaining portions of the pancreas are within normal limits. Liver: Unremarkable. Gallbladder: The gallbladder wall is thickening of the 5 mm. There is a small amount of pericholecystic fluid. There is a sludge-filled gallbladder. CBD: The common bile duct is mildly distended at 7 mm. However, this is improved compared the prior study. There is a common bile duct stent identified. Right kidney: No hydronephrosis. IMPRESSION: 1. The gallbladder is filled with sludge and demonstrates a thickened wall and a small amount of pericholecystic fluid. This is concerning for acute cholecystitis. Clinical correlation recommended. 2. Interval decompression of the common bile duct. The common bile duct stent is in place.
--- NOTE | 2018-07-25 12:08 | Hospitalist Progress Note ---
Date of Service July 25, 2018 Assessment & Plan (1) Opioid withdrawal: She appears improved on home regimen of morphine 60 mg ER twice daily and Percocet in addition to gabapentin 100 mg p.o. 3 times daily. Continue this regimen while hospitalized and tolerating p.o. Would expect mental status to continue to clear over the next 24 hours. (2) Gram negative septicemia: ID consult, cont cefepime and flagyl. Cont to follow blood cultures for speciation. Clinically improved and leukocytosis improved. (3) Choledocholithiasis: s/p ERCP with stone removal and CBD stent placement, no evidence of post E RAG BALER pancreatitis at this time with negative lipase and improved white blood cell count. (4) Acute cholecystitis: US consistent with acute cholecystitis. Currently cannot tolerate HIDA as she appears to be in a narcotic withdrawal, however, even if she is improved she is on chronic long-acting narcotics consistently which should not be stopped at this point. This may obscure the findings. Defer to Surgery for how to proceed. Cont abx. (5) Chronic pain syndrome: Takes chronic narcotics long-standing for severe back pain. (6) Severe sepsis: resuscitated and on appropriate antibiotic therapy with improvement in leukocytosis and clinical picture. IVF stopped and lungs are clear to auscultation on exam today. (7) DVT prophylaxis: Lovenox. Full Code Dispo-cont telemetry monitoring Hayley Argueta DO [facility] Hospitalist Subjective She appears more lucid today and more comfortable. She is no longer moaning and is able to answer yes and no, however she does have intermittent periods where she appears delirious and will continue to answer questions by repeating her name. She is easily manipulated around the bed as opposed to last night when she was stuck in a sitting position holding her head and moaning rocking back and forth. Hemodynamics still show mild tachycardia however this appears to be improving with being on her home narcotic regimen. I expect this would not improve completely with just 1 dose overnight. Would expect to see resolution of hemodynamic instability by tomorrow if it were completely related to withdrawal. As a result of intermittent confusion review of systems is unobtainable. Review of Systems Review of Systems: Unobtainable due to cognitive status Physical Exam Physical Exam: CONSTITUTIONAL: WNWD, vitals as above, generally well- appearing, no acute distress. EYES: normal conjuctivae, no scleral icterus ENT: MMM, lip trauma upper and lower with swelling is present-this is lsightly improved today RESPIRATORY: clear to auscultation, no wheezes, normal respiratory effort CARDIOVASCULAR: tachy rate and regular rhythm, S1 and 2 heard without murmurs, gallops or rubs, no JVD, no peripheral edema GASTROINTESTINAL: normal bowel sounds, soft, TTP in epigastric and suprapubic areas specifically. This is improved from last night's exam with generalized tenderness and some guarding. MUSCULOSKELETAL: head is normocephalic and atraumatic, generalized weakness SKIN: warm and dry NEUROLOGIC: limited exam as patient has intermittent confusion and weakness. Results & Data Vital Signs (Past 12 Hours) Vital Signs Temp Pulse Pulse Resp BP BP Pulse Ox 07/25/18 08:50 37.2 C 91 07/25/18 08:00 116 H 07/25/18 07:47 38.2 C H 98 H 18 148/79 H 95 07/25/18 07:29 117 H 170/78 H 07/25/18 03:21 37.1 C 118 H 18 168/77 H 97 Laboratory Results Short CBC 07/24/18 07/24/18 07/25/18 Range/Units 12:19 21:45 06:27 WBC 13.93 H 12.11 H 9.11 (4.8-10.8) K/uL Hgb 11.1 L 10.8 L 10.3 L (12.0-16.0) g/dL Hct 33.2 L 30.9 L 30.3 L (37-47) % Plt Count 102 L 81 L 81 L (130-400) K/uL BMP 07/24/18 07/24/18 07/25/18 12:19 21:45 06:27 Sodium 139 142 143 Potassium 4.0 D 3.7 TNP Chloride 111 H 114 H 115 H Carbon Dioxide 19 L 19 L 20 L BUN 13 13 14 Creatinine 0.78 0.66 0.67 Glucose 107 H 115 H 112 H Calcium 7.5 L 7.9 L 8.2 L Liver Function 07/24/18 07/24/18 07/24/18 Range/Units 12:19 17:43 21:45 Total Bilirubin 4.2 H 3.8 H 3.7 H (0.2-1) mg/dl Direct Bilirubin 3.2 H 2.7 H (0-0.2) mg/dl AST 96 H 82 H 77 H (15-37) U/L ALT 154 H 132 H 128 H (12-78) U/L Alkaline Phosphatase 110 110 116 (45-117) U/L Albumin 3.0 L 2.8 L 2.9 L (3.4-5.0) gm/dl 07/25/18 Range/Units 06:27 Total Bilirubin 3.7 H (0.2-1) mg/dl Direct Bilirubin TNP (0-0.2) mg/dl AST TNP (15-37) U/L ALT 110 H (12-78) U/L Alkaline Phosphatase 142 H (45-117) U/L Albumin 2.8 L (3.4-5.0) gm/dl Medications Administered Current Inpatient Medications Dextrose (Dextrose 50%) 25 - 50 ml IV UD PRN; Protocol PRN Reason: Hypoglycemia Protocol Stop: 08/23/18 04:14 Enoxaparin Sodium (Lovenox) 40 mg SQ QAM TRELL Stop: 08/24/18 08:59 Last Admin: 07/25/18 07:35 Dose: 40 mg Documented by: Gabapentin (Neurontin) 100 mg PO TID TRELL Stop: 08/23/18 21:29 Last Admin: 07/25/18 07:36 Dose: 100 mg Documented by: Glucagon (Glucagen) 1 mg SQ UD PRN; Protocol PRN Reason: Hypoglycemia Protocol Stop: 08/23/18 04:14 Glucose (Glucose 40%) 15 - 30 gm PO UD PRN; Protocol PRN Reason: Hypoglycemia Protocol Stop: 08/23/18 04:14 Glucose (Dex4 Glucose) 4 - 8 tabs PO UD PRN; Protocol PRN Reason: Hypoglycemia Protocol Stop: 08/23/18 04:14 Hydromorphone HCl (Dilaudid) 0.5 mg IV Q3H PRN PRN Reason: Pain Stop: 08/07/18 01:04 Last Admin: 07/25/18 02:23 Dose: 0.5 mg Documented by: Metronidazole (Flagyl) 500 mg in 100 mls @ 100 mls/hr IV Q8H [facility] Stop: 08/03/18 07:59 Last Infusion: 07/25/18 11:22 Dose: Infused Documented by: Cefepime HCl 2,000 mg/ Syringe 20 mls @ 5.5 mls/min IV Q8H [facility]; Protocol Stop: 08/03/18 01:59 Last Admin: 07/25/18 01:45 Dose: 5.5 mls/min Documented by: Insulin Aspart (Novolog Flexpen) 0 units SC ACHS TRE[facility] Stop: 08/23/18 07:29 Last Admin: 07/25/18 09:44 Dose: Not Given Documented by: Metoprolol Tartrate (Lopressor) 2.5 mg IV Q6 PRN PRN Reason: Tachycardia Stop: 08/24/18 05:59 Last Admin: 07/25/18 07:29 Dose: 2.5 mg Documented by: Miscellaneous (Icu Protocol For Hyperglycemia) 1 ea N/A PRN PRN; Protocol PRN Reason: Hyperglycemia Protocol Stop: 07/26/18 01:04 Miscellaneous (Carbohydrates For Hypoglycemia) 15 - 30 gm PO UD PRN PRN Reason: Hypoglycemia Treatment Stop: 08/23/18 04:14 Miscellaneous Information (Cefepime Consult Active) 1 ea N/A DAILY PRN PRN Reason: Consult Stop: 08/23/18 01:21 Morphine Sulfate (Ms Contin) 60 mg PO Q12 [facility] Stop: 08/07/18 21:29 Last Admin: 07/25/18 11:22 Dose: 60 mg Documented by: Oxycodone/Acetaminophen (Percocet 5mg/325mg) 1 tab PO QID PRN PRN Reason: Pain Stop: 08/07/18 21:25 Pantoprazole Sodium (Protonix) 40 mg PO DAILY [facility] Stop: 08/24/18 08:59 Last Admin: 07/25/18 07:36 Dose: 40 mg Documented by:
--- NOTE | 2018-07-25 13:26 | Infectious Disease Consult ---
Date of Consultation July 25, 2018 Assessment & Plan (1) Gram negative septicemia: Patient with gram-negative sepsis in the setting of cholecystitis, cholangitis, and choledocholithiasis now status post ERCP and stenting. Patient will be treated with cefepime and metronidazole pending final culture results. Length of IV antibiotics yet to be determined. Will follow. (2) Acute cholecystitis: (3) Cholangitis: (4) Choledocholithiasis: History of Present Illness Reason for Consultation: Gram-negative bacteremia Attending Physician: Hayley Argueta DO History of Present Illness History obtained from medical staff and medical records as patient unable to provide adequate history. 62-year-old female with history of chronic pain syndrome on opioids, hypertension, hyperlipidemia, who was admitted to the hospital via the emergency room where she was brought by her with confusion, hypotension, and evid ence of sepsis. She has been found to have evidence of biliary tract infection with obstruction, and underwent emergency ERCP with stenting and stone removal. Was briefly intubated for airway management, now extubated successfully. She has become more awake, but still confused and not answering questions appropriately. Blood cultures now positive for gram-negative bacilli. Patient has been treated with combination of cefepime and metronidazole. Allergies Allergy/AdvReac Type Severity Reaction Status Date / Time sulfamethoxazole Allergy Rash Verified 07/23/18 22:25 [From Bactrim] trimethoprim [From Bactrim] Allergy Rash Verified 07/23/18 22:25 IBUPROFEN Allergy Unknown GASTRIC Uncoded 07/23/18 22:25 SYMPTOMS Home Medications Home Medications Medication Instructions Recorded Confirmed Type Sleep Aid Tab 1 tab PO HS PRN 07/23/18 07/23/18 History acetaminophen [Tylenol Extra 500 mg PO Q6H PRN 07/23/18 07/23/18 History Strength] gabapentin [Neurontin] 100 mg PO TID 07/23/18 07/23/18 History lisinopril 10 mg PO DAILY 07/23/18 07/23/18 History morphine [MS Contin] 60 mg PO Q12 07/23/18 07/23/18 History omega [id number]-zay-miu-fish oil [[place]-3] 1 cap PO TID 07/23/18 07/23/18 History omeprazole 20 mg PO DAILY 07/23/18 07/23/18 History oxycodone-acetaminophen [Percocet] 1 tab PO BID PRN 07/23/18 07/23/18 History promethazine 25 mg PO Q8 PRN 07/23/18 07/23/18 History scopolamine base [Transderm-Scop] 1 patch TOPICAL .UD WHEN TRAVELING 07/23/18 07/23/18 History simvastatin [Zocor] 10 mg PO DAILY 07/23/18 07/23/18 History Patient History Medical History Scoliosis Chronic pain syndrome Surgical History History of back surgery Social History Preferred Language: Turkish Communication Ability: Unable Beliefs That Will Affect Care: None Current Living Situation: Spouse Feels Safe at Home: Yes Smoking Status: Former smoker Hx Alcohol Use: Yes Alcohol type: wine Hx Substance Use: No Review of Systems Review of Systems: Unobtainable due to cognitive status Physical Exam Constitutional: well nourished and + altered mental status; no acute distress Eyes: PERRL, conjunctivae normal, anicteric sclerae ENMT: external ear and nose normal, oropharynx normal Neck: trachea midline, no thyromegaly normal visual inspection Respiratory: normal respiratory effort, lungs clear to auscultation normal percussion Cardiovascular: RRR, no murmur, no edema Heart Sounds: no gallop and no cardiac rub Gastrointestinal (Abdomen): Inspection/Auscultation: + abdomen distended and normal bowel sounds Percussion/Palpation: + abdomen tender; no hepatosplenomegaly and no abdominal mass Musculoskeletal: no cyanosis or clubbing, extremities motor strength 5/5 Head/Neck/Chest: normocephalic, head atraumatic and neck supple Skin: no rashes, warm and dry Neurologic: moves all extremities; no focal motor deficits Lymphatic: no cervical or axillary lymphadenopathy no inguinal lymphadenopathy Results & Data Vital Signs (Past 12 Hours) Vital Signs Temp Pulse Pulse Resp BP BP Pulse Ox 07/25/18 08:50 37.2 C 91 07/25/18 08:00 116 H 07/25/18 07:47 38.2 C H 98 H 18 148/79 H 95 07/25/18 07:29 117 H 170/78 H 07/25/18 03:21 37.1 C 118 H 18 168/77 H 97 Laboratory Results Short CBC 07/24/18 07/25/18 Range/Units 21:45 06:27 WBC 12.11 H 9.11 (4.8-10.8) K/uL Hgb 10.8 L 10.3 L (12.0-16.0) g/dL Hct 30.9 L 30.3 L (37-47) % Plt Count 81 L 81 L (130-400) K/uL BMP 07/24/18 07/25/18 21:45 06:27 Sodium 142 143 Potassium 3.7 TNP Chloride 114 H 115 H Carbon Dioxide 19 L 20 L BUN 13 14 Creatinine 0.66 0.67 Glucose 115 H 112 H Calcium 7.9 L 8.2 L Liver Function 07/24/18 07/24/18 07/25/18 Range/Units 17:43 21:45 06:27 Total Bilirubin 3.8 H 3.7 H 3.7 H (0.2-1) mg/dl Direct Bilirubin 3.2 H 2.7 H TNP (0-0.2) mg/dl AST 82 H 77 H TNP (15-37) U/L ALT 132 H 128 H 110 H (12-78) U/L Alkaline Phosphatase 110 116 142 H (45-117) U/L Albumin 2.8 L 2.9 L 2.8 L (3.4-5.0) gm/dl Diagnostic Findings Microbiology 07/23/18 23:53 Blood Aerobic Blood Culture - Preliminary Gram negative bacilli 07/23/18 23:53 Blood Anaerobic Blood Culture - Final 07/23/18 23:54 Blood Aerobic Blood Culture - Preliminary Gram negative bacilli 07/23/18 23:54 Blood Anaerobic Blood Culture - Preliminary Gram negative bacilli ABDOMINAL ULTRASOUND, RIGHT UPPER QUADRANT HISTORY: Right upper quadrant pain. r/o acute cholecystitis. COMPARISON: Abdomen and pelvis CT 07/23/2018. FINDINGS: Pancreas: The pancreatic tail is obscured by overlying bowel gas. The remaining portions of the pancreas are within normal limits. Liver: Unremarkable. Gallbladder: The gallbladder wall is thickening of the 5 mm. There is a small amount of pericholecystic fluid. There is a sludge-filled gallbladder. CBD: The common bile duct is mildly distended at 7 mm. However, this is improved compared the prior study. There is a common bile duct stent identified. Right kidney: No hydronephrosis. IMPRESSION: 1. The gallbladder is filled with sludge and demonstrates a thickened wall and a small amount of pericholecystic fluid. This is concerning for acute cholecystitis. Clinical correlation recommended. 2. Interval decompression of the common bile duct. The common bile duct stent is in place.
[2018-07-25] MEDS ORDERED: VANCOMYCIN TROUGH ONE (13:30)
[2018-07-25] MEDS: SODIUM CHLORIDE 0.9% 1000ML 1,000 ML IV SCH (18:26)
[2018-07-25] MEDS ORDERED: ONDANSETRON INJ 2 MG/ML 2 ML VIAL IV PRN (20:34)
[2018-07-26] MEDS: metroNIDAZOLE 500 MG/100 ML BAG IV SCH ×3 (00:23→15:35)
[2018-07-26] MEDS: CEFEPIME 2,000 MG in SYRINGE 7.5 ML IV SCH ×3 (02:21→17:20)
[2018-07-26] MEDS: SODIUM CHLORIDE 0.9% 1000ML 1,000 ML IV SCH ×2 (02:21→09:44)
[2018-07-26 03:52] LABS: Appearance Urine Clear (Clear); Bacteria Urine Automated Negative (Negative); Color Urine Dark Yellow; Glucose Urine UA Negative (Negative); Ketones Urine 1+ (Negative); Leukocyte Esterase Urine Negative (Negative); Nitrite Urine Positive (Negative); Protein Urine Trace (Negative); Specific Gravity Urine 1.021 (1.000-1.030); Urobilinogen Urine Negative (Negative); pH Urine 5.5 (4.5-7.5)
[2018-07-26 03:55] LABS: Bilirubin Urine Negative (Negative); Ictotest Urine Negative (Negative)
[2018-07-26 07:38] LABS: Hematocrit (blood only) 28.6 % (37-47); Hemoglobin 9.7 g/dL (12.0-16.0); Mean Corpuscular Hgb Conc 33.9 g/dL (32-36); Mean Corpuscular Volume 89.1 fL (80-100); RDW Coefficient of Variation 13.6 % (11.5-14.5); RDW Standard Deviation 44.9 fL (36.4-46.3); Red Blood Count 3.21 M/uL (4.2-5.4); White Blood Count 7.37 K/uL (4.8-10.8)
[2018-07-26 07:43] LABS: Mean Platelet Volume 11.3 fL (7.4-10.4); Platelet Count 82 K/uL (130-400)
[2018-07-26 07:47] LABS: INR 1.1 (0.9-1.1); Prothrombin Time 11.4 Seconds (9.0-12.0)
--- NOTE | 2018-07-26 07:52 | Gastroenterology Progress Note ---
Date of Service July 26, 2018 Assessment & Plan (1) Hyperbilirubinemia: Cholangitis-status post ERCP Clinically with considerable improvement, likely had delirium from either ICU, acute illness, or possibly medication withdrawal. Clearing up Abdominal exam is benign today labs are falling appropriately. Surgical consultation Continue IV antibiotics cultures have now resulted into a pansensitive E. coli, Rocephin would be a reasonable choice given the sensitivities but will defer to the primary team and infectious disease who is following. Call with questions Subjective , Mental status dramatically improved. She is able to converse today and mega hicks remarkably improved in appearance. AF in last 24 hrs Review of Systems Review of Systems: All systems reviewed & are unremarkable except as noted in HPI & below Physical Exam Physical Exam: Awake and alert oriented to place and person Right lower lip bruise Constitutional: WD/WN, vitals as above Cardiovascular: RRR, no murmur, no edema Gastrointestinal (Abdomen): normal bowel sounds, soft, nontender, no hepatosplenomegaly Results & Data Vital Signs (Past 12 Hours) Vital Signs Temp Pulse Pulse Resp BP Pulse Ox 07/26/18 06:46 36.7 C 104 H 18 151/88 H 91 07/26/18 04:00 37.1 C 105 H 18 167/79 H 90 07/26/18 00:59 102 H 156/79 H 07/26/18 00:48 105 H 07/25/18 23:32 36.7 C 105 H 18 191/75 H 91 07/25/18 19:57 37.6 C H 106 H 23 189/91 H 93
[2018-07-26 07:56] LABS: Albumin Level 2.8 gm/dl (3.4-5.0); BUN Creatinine Ratio 26.4 (10-20); Bilirubin Direct 1.8 mg/dl (0-0.2); Calcium 8.5 mg/dl (8.5-10.1); Creatinine Clr Calc Pharmacy 148.8 ml/min; Est GFR (African American) 123.6; Est GFR (Non-African American) 106.6; Magnesium 2.1 mg/dl (1.8-2.4); Potassium 3.7 mmol/L (3.5-5.1)
[2018-07-26] MEDS: MoRPHine SULFATE CR 60 MG TABCR PO SCH ×2 (07:58→21:06)
[2018-07-26] MEDS: PANTOprazole 40 MG TAB PO SCH (07:58)
[2018-07-26] MEDS: ENOXAPARIN INJ 40 MG/0.4 ML SYR SQ SCH (07:59)
[2018-07-26] MEDS: GABAPENTIN 100 MG CAP PO SCH ×3 (07:59→21:07)
[2018-07-26 08:14] LABS: Phosphorus 1.1 mg/dl (2.5-4.9); Total Protein 5.8 gm/dl (6.4-8.2)
[2018-07-26] MEDS ORDERED: SODIUM PHOSPHATE 3 MMOL/1 ML 5 ML VIAL IV ONE (08:19)
[2018-07-26] MEDS ORDERED: SODIUM PHOSPHATE 30 MMOL in SODIUM CHLORIDE 0.9% 500 ML IV ONE (08:30)
[2018-07-26] MEDS: INSULIN ASPART 100 UNITS/ML 3 ML PEN SC SCH ×4 (09:01→21:14)
[2018-07-26 09:05] LABS: Basophils # (auto) 0.01 K/uL (0-0.2); Basophils % (auto) 0.1 %; Eosinophils # (auto) 0.05 K/uL (0-0.5); Eosinophils % (auto) 0.7 %; Immature Granulocytes # (auto) 0.02 K/uL (0.00-0.02); Immature Granulocytes % (auto) 0.3 %; Lymphocytes # (auto) 0.72 K/uL (1.2-3.4); Lymphocytes % (auto) 9.8 %; Monocytes # (auto) 0.37 K/uL (0.11-0.59); Neutrophils % (auto) 84.1 %
--- NOTE | 2018-07-26 10:48 | Hospitalist Progress Note ---
Date of Service July 26, 2018 Assessment & Plan (1) Metabolic encephalopathy: Mental status is improving today. Neurology was consulted and recommends continuing current treatment plan allowing for time for recovery after recent insults. (2) Opioid withdrawal: She is improved after restarting her home regimen of morphine ER 60 mg twice daily and gabapentin 100 mg p.o. 3 times daily. She also intermittently gets Percocet for pain above and beyond this. (3) Gram negative septicemia: Continue cefepime and Flagyl per ID recommendations pending cultures. Clinically she is improved and lab work has trended down is supportive of this. There is still a question of if her gallbladder should be removed. Recent right upper quadrant ultrasound on 07/24 revealed evidence of acute cholecystitis. In the setting of narcotic use that is chronic HIDA scan may be performed but unhelpful. Defer this to general surgery. Defer to general surgery for recommendations. (4) Choledocholithiasis: s/p ERCP with stone removal and CBD stent placement, no evidence of post ERCP pancreatitis at this time with negative lipase and improved white blood cell count. (5) Acute cholecystitis: Awaiting surgical recommendations. Continue antibiotics. (6) Chronic pain syndrome: Takes chronic narcotics long-standing for severe back pain. (7) Severe sepsis: resuscitated and on appropriate antibiotic therapy with improvement in leukocytosis and clinical picture. (8) DVT prophylaxis: Lovenox. Full Code Dispo-cont telemetry monitoring. Stopping IV fluids as patient is tolerating p.o. and there are crackles on lung exam. May need additional assistance after discharge. Will involve case management and order PT/OT. Hayley Argueta DO [facility] Hospitalist Subjective Mental status improved. She is able to say where and who she is. She is eating solid foods per who is at bedside. The patient reports some of her chronic back pain but states that her abdomen feels fine today. Review of Systems Review of Systems: All systems reviewed & are unremarkable except as noted in HPI & below Physical Exam Physical Exam: CONSTITUTIONAL: WNWD, vitals as above, generally well-appe aring, no acute distress. EYES: normal conjuctivae, no scleral icterus ENT: MMM, lip trauma upper and lower with swelling is present-continues to improve, swelling has gone down RESPIRATORY: mild crackles on bases, no wheezes, normal respiratory effort CARDIOVASCULAR: tachy rate and regular rhythm, S1 and 2 heard without murmurs, gallops or rubs, no JVD, no peripheral edema GASTROINTESTINAL: normal bowel sounds, soft, nontender, nondistended, - Ashraf's. MUSCULOSKELETAL: head is normocephalic and atraumatic, generalized weakness SKIN: warm and dry NEUROLOGIC: moves all extremities equally, no gross focal deficits. She is more alert and responsive today. She is oriented to self and place, but cannot identify the date or articulate much else beyond yes/no answers. Results & Data Vital Signs (Past 12 Hours) Vital Signs Temp Pulse Pulse Resp BP Pulse Ox 07/26/18 06:46 36.7 C 104 H 18 151/88 H 91 07/26/18 04:00 37.1 C 105 H 18 167/79 H 90 07/26/18 00:59 102 H 156/79 H 07/26/18 00:48 105 H 07/25/18 23:32 36.7 C 105 H 18 191/75 H 91 Laboratory Results Short CBC 07/26/18 Range/Units 06:32 WBC 7.37 (4.8-10.8) K/uL Hgb 9.7 L (12.0-16.0) g/dL Hct 28.6 L (37-47) % Plt Count 82 L (130-400) K/uL BMP 07/26/18 06:32 Sodium 141 Potassium 3.7 Chloride 113 H Carbon Dioxide 23 BUN 13 Creatinine 0.47 L Glucose 113 H Calcium 8.5 Liver Function 07/26/18 Range/Units 06:32 Total Bilirubin 3.0 H (0.2-1) mg/dl Direct Bilirubin 1.8 H (0-0.2) mg/dl AST 27 (15-37) U/L ALT 78 (12-78) U/L Alkaline Phosphatase 186 H (45-117) U/L Albumin 2.8 L (3.4-5.0) gm/dl Urine 07/26/18 Range/Units 03:33 Urine Color Dark Yellow Urine Appearance Clear (Clear) Urine pH 5.5 (4.5-7.5) Ur Specific [place] 1.021 (1.000-1.030) Urine Protein Trace H (Negative) Urine Glucose (UA) Negative (Negative) Medications Administered Current Inpatient Medications Dextrose (Dextrose 50%) 25 - 50 ml IV UD PRN; Protocol PRN Reason: Hypoglycemia Protocol Stop: 08/23/18 04:14 Enoxaparin Sodium (Lovenox) 40 mg SQ QAM TRELL Stop: 08/24/18 08:59 Last Admin: 07/26/18 07:59 Dose: 40 mg Documented by: Gabapentin (Neurontin) 100 mg PO TID TRELL Stop: 08/23/18 21:29 Last Admin: 07/26/18 07:59 Dose: 100 mg Documented by: Glucagon (Glucagen) 1 mg SQ UD PRN; Protocol PRN Reason: Hypoglycemia Protocol Stop: 08/23/18 04:14 Glucose (Glucose 40%) 15 - 30 gm PO UD PRN; Protocol PRN Reason: Hypoglycemia Protocol Stop: 08/23/18 04:14 Glucose (Dex4 Glucose) 4 - 8 tabs PO UD PRN; Protocol PRN Reason: Hypoglycemia Protocol Stop: 08/23/18 04:14 Hydromorphone HCl (Dilaudid) 0.5 mg IV Q3H PRN PRN Reason: Pain Stop: 08/07/18 01:04 Last Admin: 07/25/18 20:12 Dose: 0.5 mg Documented by: Metronidazole (Flagyl) 500 mg in 100 mls @ 100 mls/hr IV Q8H [facility] Stop: 08/03/18 07:59 Last Infusion: 07/26/18 09:01 Dose: Infused Documented by: Cefepime HCl 2,000 mg/ Syringe 20 mls @ 5.5 mls/min IV Q8H [facility]; Protocol Stop: 08/03/18 01:59 Last Admin: 07/26/18 09:34 Dose: 5.5 mls/min Documented by: Sodium Chloride (Nss 1000ml) 1,000 mls @ 125 mls/hr IV .Q8H [facility] Stop: 07/26/18 18:14 Last Admin: 07/26/18 09:44 Dose: 125 mls/hr Documented by: Sodium Phosphate 30 mmol/ (Sodium Chloride) 510 mls @ 102 mls/hr IV ONE ONE Stop: 07/26/18 13:29 Last Admin: 07/26/18 09:34 Dose: 102 mls/hr Documented by: Insulin Aspart (Novolog Flexpen) 0 units SC ACHS [facility] Stop: 08/23/18 07:29 Last Admin: 07/26/18 09:01 Dose: Not Given Documented by: Metoprolol Tartrate (Lopressor) 2.5 mg IV Q6 PRN PRN Reason: Tachycardia Stop: 08/24/18 05:59 Last Admin: 07/25/18 07:29 Dose: 2.5 mg Documented by: Miscellaneous (Carbohydrates For Hypoglycemia) 15 - 30 gm PO UD PRN PRN Reason: Hypoglycemia Treatment Stop: 08/23/18 04:14 Miscellaneous Information (Cefepime Consult Active) 1 ea N/A DAILY PRN PRN Reason: Consult Stop: 08/23/18 01:21 Morphine Sulfate (Ms Contin) 60 mg PO Q12 [facility] Stop: 08/07/18 21:29 Last Admin: 07/26/18 07:58 Dose: 60 mg Documented by: Ondansetron HCl (Zofran) 4 mg IV Q6H PRN PRN Reason: Nausea Stop: 08/24/18 20:33 Last Admin: 07/25/18 20:43 Dose: 4 mg Documented by: Oxycodone/Acetaminophen (Percocet 5mg/325mg) 1 tab PO QID PRN PRN Reason: Pain Stop: 08/07/18 21:25 Pantoprazole Sodium (Protonix) 40 mg PO DAILY [facility] Stop: 08/24/18 08:59 Last Admin: 07/26/18 07:58 Dose: 40 mg Documented by:
--- NOTE | 2018-07-26 11:07 | Surgery Progress Note ---
Date of Service pt is doing better, more awake, pt denies abdominal pain, no nausea, no vomiting, she tolerated diet, no fever, July 26, 2018 Assessment & Plan (1) Cholangitis: 62 year-old female who presented to emergency department last evening with increasing back pain and altered mental status with hallucinations that began yesterday. Found to have dilated CBD and wall enhancement of CBD and gallbladder on CT scan concerning for possible cholecystitis or cholangitis. Elevated t. bili at 4.7. Leukocytosis of 17K. Elevated LFTs. Lactic acid 4. Underwent emergent ERCP and was found to have cholangitis with choledocholithiasis. Leukocytosis improved to 8k today. Improvement of LFTS. T. bili still elevated at 3.9. Patient still with altered mental status/confused. Plan: Recommend ultrasound to further evaluate gallbladder and rule out acute cholecystitis. Do not believe she would be able to tolerate HIDA scan given altered mental status. If there are no signs of acute cholecystitis could get her through this acute phase and discuss elective cholecystectomy as she has CBD stent present. Would continue IV Abx, IV Fluids, NPO, Zofran prn nausea. Follow labs (t. bili and LFTS, lactic acid). Discussed with her baseline functioning status. She does not ambulate much at home and is in bed majority of the day. He does all of the cooking and cleaning. She does not use any assistive devices for ambulation. Will closely follow along Await results of US to determine timing of cholecystectomy. Dr. Saucedo has seen and examined patient, developed assessment and plan. 07/25/2018, 11:28am normal WBC, still high (T)bili 3.7 possible schedule to do laparoscopic cholecystectomy 0n 07/28/2018 D/W benefits, risks and alternatives of the surgery, pt's agrees with the plan, I answered all questions, 07/26/2018 11:04am I recommend to do laparoscopic cholecystectomy possible open or cholangiogram, on 07/28/2018, D/W benefits, risks and alternatives of the surgery, the risks - infection, bleeding, injury CBD, bowel, PA, DVT, stroke, , pt and her understood, they agree with the surgery, I answered all questions, pt's signed consent, (2) Acute alteration in mental status: (3) Choledocholithiasis: Subjective AF in last 24 hrs Physical Exam Constitutional: WD/WN, vitals as above well developed and well nourished Neck: trachea midline, no thyromegaly Respiratory: normal respiratory effort, lungs clear to auscultation normal respiratory effort Cardiovascular: RRR, no murmur, no edema Rate/Rhythm: regular rate and regular rhythm Gastrointestinal (Abdomen): Percussion/Palpation: abdomen soft NT, ND, no distend, BS+ Neurologic: awake Psychiatric: Orientation: alert and oriented x 3 Results & Data Vital Signs (Past 12 Hours) Vital Signs Temp Pulse Pulse Resp BP Pulse Ox 07/26/18 06:46 36.7 C 104 H 18 151/88 H 91 07/26/18 04:00 37.1 C 105 H 18 167/79 H 90 07/26/18 00:59 102 H 156/79 H 07/26/18 00:48 105 H 07/25/18 23:32 36.7 C 105 H 18 191/75 H 91 Diagnostic Findings Abnormal lab results 07/25/18 07/25/18 07/25/18 Range/Units 12:55 16:25 20:38 RBC (4.2-5.4) M/uL Hgb (12.0-16.0) g/dL Hct (37-47) % Plt Count (130-400) K/uL MPV (7.4-10.4) fL Lymph # (Auto) (1.2-3.4) K/uL Chloride (98-107) mmol/L Creatinine (0.6-1.2) mg/dl BUN/Creatinine Ratio (10-20) Glucose (70-99) mg/dl POC Glucose 112 H 109 H 105 H (70-99) Phosphorus (2.5-4.9) mg/dl Total Bilirubin (0.2-1) mg/dl Direct Bilirubin (0-0.2) mg/dl Alkaline Phosphatase (45-117) U/L Total Protein (6.4-8.2) gm/dl Albumin (3.4-5.0) gm/dl Urine Protein (Negative) Urine Ketones (Negative) Urine Nitrite (Negative) U Epithel Cells (Auto) (0-5) /lpf 07/26/18 07/26/18 07/26/18 Range/Units 03:33 06:32 06:32 RBC 3.21 L (4.2-5.4) M/uL Hgb 9.7 L (12.0-16.0) g/dL Hct 28.6 L (37-47) % Plt Count 82 L (130-400) K/uL MPV 11.3 H (7.4-10.4) fL Lymph # (Auto) 0.72 L (1.2-3.4) K/uL Chloride 113 H (98-107) mmol/L Creatinine 0.47 L (0.6-1.2) mg/dl BUN/Creatinine Ratio 26.4 H (10-20) Glucose 113 H (70-99) mg/dl POC Glucose (70-99) Phosphorus 1.1 L* D (2.5-4.9) mg/dl Total Bilirubin 3.0 H (0.2-1) mg/dl Direct Bilirubin 1.8 H (0-0.2) mg/dl Alkaline Phosphatase 186 H (45-117) U/L Total Protein 5.8 L (6.4-8.2) gm/dl Albumin 2.8 L (3.4-5.0) gm/dl Urine Protein Trace H (Negative) Urine Ketones 1+ H (Negative) Urine Nitrite Positive A (Negative) U Epithel Cells (Auto) 5-10 H (0-5) /lpf 07/26/18 Range/Units 07:18 RBC (4.2-5.4) M/uL Hgb (12.0-16.0) g/dL Hct (37-47) % Plt Count (130-400) K/uL MPV (7.4-10.4) fL Lymph # (Auto) (1.2-3.4) K/uL Chloride (98-107) mmol/L Creatinine (0.6-1.2) mg/dl BUN/Creatinine Ratio (10-20) Glucose (70-99) mg/dl POC Glucose 109 H (70-99) Phosphorus (2.5-4.9) mg/dl Total Bilirubin (0.2-1) mg/dl Direct Bilirubin (0-0.2) mg/dl Alkaline Phosphatase (45-117) U/L Total Protein (6.4-8.2) gm/dl Albumin (3.4-5.0) gm/dl Urine Protein (Negative) Urine Ketones (Negative) Urine Nitrite (Negative) U Epithel Cells (Auto) (0-5) /lpf
--- NOTE | 2018-07-26 11:14 | Neurology Consultation ---
Date of Consultation July 26, 2018 History of Present Illness Attending Physician: Hayley Argueta, DO Assessment/plan Sepsis Associated Encephalopathy Septic Shock Acute cholangitis Hypoactive Delirium Chronic Narcotic Dependance A 62-year-old woman admitted on July 24, 2018 for septic shock secondary to acute cholecystitis/cholangitis status post ERCP. Neurology consulted due to persistent encephalopathy. - I suspect this patient is likely having episodes of hypoactive delirium in the setting of recent sepsis associated encephalopathy. She his high risk for delirium. Appears comfortable and euphoric this morning. Comprehension is intact. Non focal examine. She is awake and alert. - Drugs that increase risk of sepsis associated encephalopathy includes sedatives-opiates. Recovery or return to normal mental status may lag behind recovery of organ function. older patient's may require several weeks to regain normal or near normal mental status. Opiate withdrawal symptoms are often severe flulike symptoms including N/V, diarrhea accompanied by intense craving for the drug. Typically not fatal and not associated with seizures (except perhaps in newborns) or delirium. Please call with any further questions or concerns. History of Present Illness A 62-year-old female with history of chronic pain syndrome on opioids for chronic back pain and HTN admitted for encephalopathy secondary to septic shock. She has been found to have evidence of biliary tract infection with obstruction, and underwent emergency ERCP with stenting and stone removal. Was briefly intubated for airway management, now extubated. Patient had a CT head on July 24 which showed no acute findings however did show chronic microvascular ischemic changes. Blood culture were positive for E. coli. Neurology consulted for fluctuating encephalopathy. at bedside. Reports she has been through a lot. No concerns at this time. Patient reports doing Ok this morning. Allergies Allergy/AdvReac Type Severity Reaction Status Date / Time sulfamethoxazole Allergy Rash Verified 07/23/18 22:25 [From Bactrim] trimethoprim [From Bactrim] Allergy Rash Verified 07/23/18 22:25 IBUPROFEN Allergy Unknown GASTRIC Uncoded 07/23/18 22:25 SYMPTOMS Home Medications Home Medications Medication Instructions Recorded Confirmed Type Sleep Aid Tab 1 tab PO HS PRN 07/23/18 07/23/18 History acetaminophen [Tylenol Extra 500 mg PO Q6H PRN 07/23/18 07/23/18 History Strength] gabapentin [Neurontin] 100 mg PO TID 07/23/18 07/23/18 History lisinopril 10 mg PO DAILY 07/23/18 07/23/18 History morphine [MS Contin] 60 mg PO Q12 07/23/18 07/23/18 History omega 4-xqu-kbz-fish oil [[place]-3] 1 cap PO TID 07/23/18 07/23/18 History omeprazole 20 mg PO DAILY 07/23/18 07/23/18 History oxycodone-acetaminophen [Percocet] 1 tab PO BID PRN 07/23/18 07/23/18 History promethazine 25 mg PO Q8 PRN 07/23/18 07/23/18 History scopolamine base [Transderm-Scop] 1 patch TOPICAL .UD WHEN TRAVELING 07/23/18 07/23/18 History simvastatin [Zocor] 10 mg PO DAILY 07/23/18 07/23/18 History Patient History Medical History Scoliosis Chronic pain syndrome Surgical History History of back surgery Social History Preferred Language: French Communication Ability: Unable Beliefs That Will Affect Care: None Current Living Situation: Spouse Feels Safe at Home: Yes Smoking Status: Former smoker Hx Alcohol Use: Yes Alcohol type: wine Hx Substance Use: No Physical Exam Physical Exam: EXAM: Constitutional: appearance normally developed, well nourished Head and Face: normocephalic and atraumatic Eyes: normal lids, normal conjunctiva Neck: supple Respiratory: normal effort Cardiovascular: normal pulses Abdomen: Non distended Skin: abrasion on lips Psychiatric: flat affect NEUROLOGIC EXAMINATION: Appearance: appears acutely ill Orientation: awake, alert and oriented to person and place Memory: Poor Attention: decreased Knowledge: Ok Language: no aphasia Speech: no dysarthria Cranial Nerves: CN 2 - no visual defect on confrontation and pupils round, equal, reactive to light CN 3, 4, 6 - extra-ocular movements intact and no nystagmus CN 5 - facial sensation intact CN 7 - no facial asymmetry CN 8 - intact hearing CN 9, 10 - palate symmetric CN 11 - good shoulder shrug CN 12 - tongue midline Gait: deferred Coordination: no ataxia with finger to nose testing and heel to sotelo testing Sensory: intact to light touch Muscle Tone: normal Muscle exam: 5/5 througout Reflexes: No ankle clonus, negative dick bilateral Results & Data Vital Signs (Past 12 Hours) Vital Signs Temp Pulse Pulse Resp BP Pulse Ox 07/26/18 06:46 36.7 C 104 H 18 151/88 H 91 07/26/18 04:00 37.1 C 105 H 18 167/79 H 90 07/26/18 00:59 102 H 156/79 H 07/26/18 00:48 105 H 07/25/18 23:32 36.7 C 105 H 18 191/75 H 91
[2018-07-26] MEDS: HYDROmorphone INJ 0.5 MG/0.5 ML SYR IV PRN (12:27)
[2018-07-26] MEDS: LISINOPRIL 10 MG TAB PO SCH (15:34)
[2018-07-26] MEDS: OXYCODONE/ACETAMINOPHEN 5mg/325mg TAB PO PRN (16:52)
[2018-07-27] MEDS: metroNIDAZOLE 500 MG/100 ML BAG IV SCH ×3 (00:30→15:40)
[2018-07-27] MEDS: CEFEPIME 2,000 MG in SYRINGE 7.5 ML IV SCH ×3 (02:05→17:25)
[2018-07-27 07:44] LABS: Albumin Level 2.6 gm/dl (3.4-5.0); BUN Creatinine Ratio 21.5 (10-20); Calcium 8.1 mg/dl (8.5-10.1); Creatinine Clr Calc Pharmacy 166.6 ml/min; Est GFR (African American) 128.2; Est GFR (Non-African American) 110.6; Magnesium 1.8 mg/dl (1.8-2.4); Potassium 3.1 mmol/L (3.5-5.1)
[2018-07-27 07:52] LABS: Bilirubin,Total 1.7 mg/dl (0.2-1); Phosphorus 1.2 mg/dl (2.5-4.9); Total Protein 5.5 gm/dl (6.4-8.2)
[2018-07-27 08:01] LABS: Bilirubin Direct 0.8 mg/dl (0-0.2)
[2018-07-27] MEDS ORDERED: SODIUM PHOSPHATE 3 MMOL/1 ML 5 ML VIAL IV ONE (08:07)
[2018-07-27] MEDS: MoRPHine SULFATE CR 60 MG TABCR PO SCH ×2 (08:08→21:08)
[2018-07-27] MEDS: LISINOPRIL 10 MG TAB PO SCH (08:09)
[2018-07-27] MEDS: GABAPENTIN 100 MG CAP PO SCH ×3 (08:09→21:08)
[2018-07-27] MEDS: PANTOprazole 40 MG TAB PO SCH (08:09)
[2018-07-27] MEDS: ENOXAPARIN INJ 40 MG/0.4 ML SYR SQ SCH (08:09)
[2018-07-27] MEDS: INSULIN ASPART 100 UNITS/ML 3 ML PEN SC SCH ×4 (08:11→21:11)
[2018-07-27] MEDS ORDERED: POTASSIUM PHOSPHATE 30 MMOL in SODIUM CHLORIDE 0.9% 500 ML IV ONE ×2 (08:15→18:45)
[2018-07-27] MEDS ORDERED: SODIUM PHOSPHATE 30 MMOL in SODIUM CHLORIDE 0.9% 500 ML IV ONE (08:15)
--- NOTE | 2018-07-27 08:24 | Surgery Progress Note ---
Date of Service July 27, 2018 Assessment & Plan (1) Cholangitis: sp ERCP with biliary stent placement -mental status improved, no further confusion - afebrile, vitals stable - no abdominal pain , no n/v - t.bili improved to 1.7 Plan: Plan for laparoscopic cholecystectomy tomorrow with Dr. Saucedo. Informed consent has already been obtained by Dr. Saucedo. Continue diet for today and NPO after midnight Continue IV Abx, PO Pain medication as needed Continue Lovenox for today, Hold tomorrow morning SCDs Continue medical management Dr. Saucedo has seen patient, agrees with above Subjective Feeling okay eating breakfast currently no abdominal pain, no nausea or vomiting Physical Exam Constitutional: WD/WN, vitals as above no acute distress and not ill appearing Respiratory: normal respiratory effort; no respiratory distress Gastrointestinal (Abdomen): Inspection/Auscultation: abdomen normal to inspection; abdomen not distended Percussion/Palpation: abdomen soft; abdomen nontender, no guarding and abdomen not rigid Skin: no rashes, warm and dry Psychiatric: A+Ox3, euthymic affect Results & Data Vital Signs (Past 12 Hours) Vital Signs Temp Pulse Pulse Resp BP BP Pulse Ox 07/27/18 07:09 37.0 C 95 H 22 167/90 H 94 07/27/18 03:40 37.2 C 98 H 18 158/86 H 96 07/27/18 00:00 37 C 95 H 108 H 18 162/89 H 94 Laboratory Results 07/27/18 07/27/18 07/26/18 Range/Units 07:24 06:42 20:40 Immature Gran % (Auto) % Neut % (Auto) % Lymph % (Auto) % [place] % (Auto) % Eos % (Auto) % Baso % (Auto) % Immature Gran # (Auto) (0.00-0.02) K/uL Neut # (Auto) (1.4-6.5) K/uL Lymph # (Auto) (1.2-3.4) K/uL [place] # (Auto) (0.11-0.59) K/uL Eos # (Auto) (0-0.5) K/uL Baso # (Auto) (0-0.2) K/uL Sodium 142 (136-145) mmol/L Potassium 3.1 L D (3.5-5.1) mmol/L Chloride 110 H (98-107) mmol/L Carbon Dioxide 26 (21-32) mmol/L Anion Gap 6.0 (3-11) BUN 9 (7-18) mg/dl Creatinine 0.42 L (0.6-1.2) mg/dl Est Cr Clr Drug Dosing 166.6 ml/min Est GFR ( Amer) 128.2 Est GFR (Non-Af Amer) 110.6 BUN/Creatinine Ratio 21.5 H (10-20) Glucose 112 H (70-99) mg/dl POC Glucose 112 H 108 H (70-99) Calcium 8.1 L (8.5-10.1) mg/dl Phosphorus 1.2 L* (2.5-4.9) mg/dl Magnesium 1.8 (1.8-2.4) mg/dl Total Bilirubin 1.7 H (0.2-1) mg/dl Direct Bilirubin 0.8 H D (0-0.2) mg/dl AST 13 L (15-37) U/L ALT 52 (12-78) U/L Alkaline Phosphatase 183 H (45-117) U/L Total Protein 5.5 L (6.4-8.2) gm/dl Albumin 2.6 L (3.4-5.0) gm/dl 07/26/18 07/26/18 07/26/18 Range/Units 16:19 11:30 11:16 Immature Gran % (Auto) % Neut % (Auto) % Lymph % (Auto) % [place] % (Auto) % Eos % (Auto) % Baso % (Auto) % Immature Gran # (Auto) (0.00-0.02) K/uL Neut # (Auto) (1.4-6.5) K/uL Lymph # (Auto) (1.2-3.4) K/uL [place] # (Auto) (0.11-0.59) K/uL Eos # (Auto) (0-0.5) K/uL Baso # (Auto) (0-0.2) K/uL Sodium (136-145) mmol/L Potassium (3.5-5.1) mmol/L Chloride (98-107) mmol/L Carbon Dioxide (21-32) mmol/L Anion Gap (3-11) BUN (7-18) mg/dl Creatinine (0.6-1.2) mg/dl Est Cr Clr Drug Dosing ml/min Est GFR ( Amer) Est GFR (Non-Af Amer) BUN/Creatinine Ratio (10-20) Glucose (70-99) mg/dl POC Glucose 115 H 105 H 262 H (70-99) Calcium (8.5-10.1) mg/dl Phosphorus (2.5-4.9) mg/dl Magnesium (1.8-2.4) mg/dl Total Bilirubin (0.2-1) mg/dl Direct Bilirubin (0-0.2) mg/dl AST (15-37) U/L ALT (12-78) U/L Alkaline Phosphatase (45-117) U/L Total Protein (6.4-8.2) gm/dl Albumin (3.4-5.0) gm/dl 07/26/18 Range/Units 06:32 Immature Gran % (Auto) 0.3 % Neut % (Auto) 84.1 % Lymph % (Auto) 9.8 % [place] % (Auto) 5.0 % Eos % (Auto) 0.7 % Baso % (Auto) 0.1 % Immature Gran # (Auto) 0.02 (0.00-0.02) K/uL Neut # (Auto) 6.20 (1.4-6.5) K/uL Lymph # (Auto) 0.72 L (1.2-3.4) K/uL [place] # (Auto) 0.37 (0.11-0.59) K/uL Eos # (Auto) 0.05 (0-0.5) K/uL Baso # (Auto) 0.01 (0-0.2) K/uL Sodium (136-145) mmol/L Potassium (3.5-5.1) mmol/L Chloride (98-107) mmol/L Carbon Dioxide (21-32) mmol/L Anion Gap (3-11) BUN (7-18) mg/dl Creatinine (0.6-1.2) mg/dl Est Cr Clr Drug Dosing ml/min Est GFR ( Amer) Est GFR (Non-Af Amer) BUN/Creatinine Ratio (10-20) Glucose (70-99) mg/dl POC Glucose (70-99) Calcium (8.5-10.1) mg/dl Phosphorus (2.5-4.9) mg/dl Magnesium (1.8-2.4) mg/dl Total Bilirubin (0.2-1) mg/dl Direct Bilirubin (0-0.2) mg/dl AST (15-37) U/L ALT (12-78) U/L Alkaline Phosphatase (45-117) U/L Total Protein (6.4-8.2) gm/dl Albumin (3.4-5.0) gm/dl
[2018-07-27] MEDS: MAGNESIUM SULFATE / D5W 1 GM/100 ML BAG IV SCH ×2 (09:32→10:36)
[2018-07-27] MEDS: POTASSIUM CHLORIDE 20 MEQ/15 ML UDC PO SCH ×2 (09:32→14:23)
--- NOTE | 2018-07-27 10:50 | Gastroenterology Progress Note ---
Date of Service July 27, 2018 Assessment & Plan (1) Choledocholithiasis: 62 year old female with cholangitis, CBD stone s/p ERCP for decompression, clinically improving, LFTs trending down. There is a tentative plan for cholecysectomy in the near future - Would continue IV ABX - No GI contraindication to low fat diet - ERCP for stent removal in 8 weeks - Appreciate general surgery input - Appreciate ongoing management by the primary team - GI to sign off. Thank you for allowing us to participate in the care of this patient. Please call with any acute changes, questions or concerns. Please see addendum below with additional recommendation from my supervising physician. Supervising Physician Co-Signing Physician Notes I performed a history and physical examination of the patient, including specifically on physical exam - soft, nontender abdomen. I have discussed the patient's management with Tamra. Please refer to the nurse practitioner's note for the documented findings and plan of care. Patient feels well now, recovered well, BP stable, no abdominal pain. Planned for Cholecystectomy tomorrow. Will plan for repeat ERCP in 4-6 weeks to remove the stent. Recall GI if needed. Subjective Pt was seen and evaluated, chart reviewed more alert Answering questions appropriately No abd pain tolerated diet No nausea, vomiting LFTs trending down Review of Systems Constitutional: no fever, no chills and no fatigue Respiratory: no cough, no dyspnea and no pain on inspiration Cardiovascular: no chest pain, no radiating jaw, neck or arm pain, no dyspnea on exertion and no palpitations Gastrointestinal: no abdominal pain, no early satiety, no nausea, no vomiting, no hematemesis and no cramping Physical Exam Constitutional: WD/WN, vitals as above Respiratory: normal respiratory effort, lungs clear to auscultation Cardiovascular: Rate/Rhythm: regular rate and regular rhythm Gastrointestinal (Abdomen): normal bowel sounds, soft, nontender, no hepatosplenomegaly Results & Data Vital Signs (Past 12 Hours) Vital Signs Temp Pulse Pulse Resp BP BP Pulse Ox 07/27/18 07:09 37.0 C 95 H 22 167/90 H 94 07/27/18 03:40 37.2 C 98 H 18 158/86 H 96 07/27/18 00:00 37 C 95 H 108 H 18 162/89 H 94 Laboratory Results 07/27/18 07/27/18 07/26/18 Range/Units 07:24 06:42 20:40 Sodium 142 (136-145) mmol/L Potassium 3.1 L D (3.5-5.1) mmol/L Chloride 110 H (98-107) mmol/L Carbon Dioxide 26 (21-32) mmol/L Anion Gap 6.0 (3-11) BUN 9 (7-18) mg/dl Creatinine 0.42 L (0.6-1.2) mg/dl Est Cr Clr Drug Dosing 166.6 ml/min Est GFR ( Amer) 128.2 Est GFR (Non-Af Amer) 110.6 BUN/Creatinine Ratio 21.5 H (10-20) Glucose 112 H (70-99) mg/dl POC Glucose 112 H 108 H (70-99) Calcium 8.1 L (8.5-10.1) mg/dl Phosphorus 1.2 L* (2.5-4.9) mg/dl Magnesium 1.8 (1.8-2.4) mg/dl Total Bilirubin 1.7 H (0.2-1) mg/dl Direct Bilirubin 0.8 H D (0-0.2) mg/dl AST 13 L (15-37) U/L ALT 52 (12-78) U/L Alkaline Phosphatase 183 H (45-117) U/L Total Protein 5.5 L (6.4-8.2) gm/dl Albumin 2.6 L (3.4-5.0) gm/dl 07/26/18 07/26/18 07/26/18 Range/Units 16:19 11:30 11:16 Sodium (136-145) mmol/L Potassium (3.5-5.1) mmol/L Chloride (98-107) mmol/L Carbon Dioxide (21-32) mmol/L Anion Gap (3-11) BUN (7-18) mg/dl Creatinine (0.6-1.2) mg/dl Est Cr Clr Drug Dosing ml/min Est GFR ( Amer) Est GFR (Non-Af Amer) BUN/Creatinine Ratio (10-20) Glucose (70-99) mg/dl POC Glucose 115 H 105 H 262 H (70-99) Calcium (8.5-10.1) mg/dl Phosphorus (2.5-4.9) mg/dl Magnesium (1.8-2.4) mg/dl Total Bilirubin (0.2-1) mg/dl Direct Bilirubin (0-0.2) mg/dl AST (15-37) U/L ALT (12-78) U/L Alkaline Phosphatase (45-117) U/L Total Protein (6.4-8.2) gm/dl Albumin (3.4-5.0) gm/dl
--- NOTE | 2018-07-27 15:47 | Anesthesiology Consultation ---
Date of Service July 27, 2018 Assessment & Plan (1) Encounter for pre-operative examination: Chart Review Chart Review: Acceptable Risk for Surgery and Patient NOT seen in Pre Admission Testing Consults Requested none Proposed Anesthesia Risk / Benefits Reviewed With: PT / POA / Parent / Guardian, Accepts Plan and Informed Consent Obtained History Surgery Operation Date: 07/24/18 05:10 Proposed Procedures p Endoscopic Retrograde Cholangiopancreato - Dominick Saavedra MD Operation Date: 07/28/18 13:15 Proposed Procedures p Laparoscopic Cholecystectomy - Carol Saucedo MD Height/Weight Height: 5 ft 8 in Weight: 91.7 kg Allergies Allergy/AdvReac Type Severity Reaction Status Date / Time sulfamethoxazole Allergy Rash Verified 07/23/18 22:25 [From Bactrim] trimethoprim [From Bactrim] Allergy Rash Verified 07/23/18 22:25 IBUPROFEN Allergy Unknown GASTRIC Uncoded 07/23/18 22:25 SYMPTOMS Medications Home Medications Medication Instructions Recorded Confirmed Last Taken Sleep Aid Tab 1 tab PO HS PRN 07/23/18 07/23/18 Unknown acetaminophen [Tylenol Extra 500 mg PO Q6H PRN 07/23/18 07/23/18 Unknown Strength] gabapentin [Neurontin] 100 mg PO TID 07/23/18 07/23/18 Unknown lisinopril 10 mg PO DAILY 07/23/18 07/23/18 Unknown morphine [MS Contin] 60 mg PO Q12 07/23/18 07/23/18 Unknown omega 9-rxs-nba-fish oil [[place]-3] 1 cap PO TID 07/23/18 07/23/18 Unknown omeprazole 20 mg PO DAILY 07/23/18 07/23/18 Unknown oxycodone-acetaminophen [Percocet] 1 tab PO BID PRN 07/23/18 07/23/18 Unknown promethazine 25 mg PO Q8 PRN 07/23/18 07/23/18 Unknown scopolamine base [Transderm-Scop] 1 patch TOPICAL .UD WHEN TRAVELING 07/23/18 07/23/18 Unknown simvastatin [Zocor] 10 mg PO DAILY 07/23/18 07/23/18 Unknown Active Medications Generic Name Dose Route Start Last Admin Trade Name Freq PRN Reason Stop Dose Admin Enoxaparin Sodium 40 mg 07/25/18 09:00 07/27/18 08:09 Lovenox SQ 08/24/18 08:59 40 mg QAM TRELL Administration Gabapentin 100 mg 07/24/18 21:30 07/27/18 14:24 Neurontin PO 08/23/18 21:29 100 mg TID TRELL Administration Hydromorphone HCl 0.5 mg 07/24/18 16:15 07/26/18 12:27 Dilaudid IV 08/07/18 01:04 0.5 mg Q3H PRN Administration Pain Metronidazole 500 mg in 100 mls @ 100 mls/hr 07/24/18 08:00 07/27/18 15:40 Flagyl IV 08/03/18 07:59 100 mls/hr Q8H TRELL Administration Cefepime HCl 2,000 mg/ Syringe 20 mls @ 5.5 mls/min 07/24/18 02:00 07/27/18 09:32 IV 08/03/18 01:59 5.5 mls/min Q8H TRELL Administration Protocol Insulin Aspart 0 units 07/24/18 07:30 07/27/18 11:49 Novolog Flexpen SC 08/23/18 07:29 Not Given ACHS TRELL Lisinopril 10 mg 07/26/18 13:15 07/27/18 08:09 Zestril PO 08/25/18 13:14 10 mg QAM TRELL Administration Metoprolol Tartrate 2.5 mg 07/25/18 04:36 07/25/18 07:29 Lopressor IV 08/24/18 05:59 2.5 mg Q6 PRN Administration Tachycardia Morphine Sulfate 60 mg 07/24/18 21:30 07/27/18 08:08 Ms Contin PO 08/07/18 21:29 60 mg Q12 TRELL Administration Ondansetron HCl 4 mg 07/25/18 20:34 07/25/18 20:43 Zofran IV 08/24/18 20:33 4 mg Q6H PRN Administration Nausea Oxycodone/Acetaminophen 1 tab 07/24/18 21:26 07/26/18 16:52 Percocet 5mg/325mg PO 08/07/18 21:25 1 tab QID PRN Administration Pain Pantoprazole Sodium 40 mg 07/25/18 09:00 07/27/18 08:09 Protonix PO 08/24/18 08:59 40 mg DAILY TRELL Administration NPO Date Last Intake of Fluids: 07/23/18 Time Last Intake of Fluids: 00:00 Date Last Intake of Solids: 07/23/18 Time Last Intake of Solids: 00:00 Past Medical History Medical History Scoliosis Chronic pain syndrome Obesity Exercise / Class Metabolic Activity III < 4 Walking/Shop/Light housework Negative for chest pain or shortness of breath. Past Surgical History Surgical History History of back surgery S/P ERCP 07/24/18 - pt tolerated GA. Arrived to OR already intubated. Past Anesthesia History No Hx of Anesthesia Complications History of PONV No Hx of Motion Sickness and History of PONV Social History Smoking Status: Former smoker Hx Alcohol Use: Yes Alcohol type: wine alcohol intake frequency: holidays/special occasions only Hx Substance Use: No Review of Systems Patient denies active symptoms of GERD. Physical Exam Vital Signs Last Vital Signs Temp 36.7 C 07/27/18 15:20 Pulse 94 H 07/27/18 15:20 Resp 16 07/27/18 15:20 BP 173/92 H 07/27/18 15:20 Pulse Ox 95 07/27/18 15:20 Constitutional + obese ENMT Mouth: + chipped teeth (BACK MOLARS) and + macroglossia Thyromental Distance: > or= 3.5 Finger Breadths Mallampati Class: III Neck normal visual inspection; neck extension not limited Respiratory normal respiratory effort Auscultation: lungs clear to auscultation bilaterally Cardiovascular Rate/Rhythm: regular rate and regular rhythm Heart Sounds: no murmur Neurologic moves all extremities Motor/Sensory: no sensory deficit Psychiatric Orientation: alert and oriented x 3 Testing Laboratory Results 07/26/18 06:32 07/27/18 06:42 07/23/18 23:53 Aerobic Blood Culture - Final Blood Escherichia coli Anaerobic Blood Culture - Final 07/23/18 23:54 Aerobic Blood Culture - Final Blood Escherichia coli Anaerobic Blood Culture - Final Escherichia coli Electrocardiogram Date: 07/25/18 Findings: + ST @ (119) Possible LAE
--- NOTE | 2018-07-27 16:04 | Infectious Disease Progress Nt ---
Date of Service July 27, 2018 Assessment & Plan (1) Gram negative septicemia: Patient with E. coli sepsis in the setting of cholecystitis, cholangitis, and choledocholithiasis now status post ERCP and stenting. Patient will be continued on cefepime for now, will consider transition to oral antibiotics in the near future. Will follow. (2) Acute cholecystitis: (3) Cholangitis: (4) Choledocholithiasis: Subjective Pt was seen and evaluated, chart reviewed more alert Answering questions appropriately No abd pain tolerated diet No nausea, vomiting LFTs trending down Review of Systems Review of Systems: All systems reviewed & are unremarkable except as noted in HPI & below Physical Exam Constitutional: well nourished and + altered mental status; no acute distress Eyes: PERRL, conjunctivae normal, anicteric sclerae ENMT: external ear and nose normal, oropharynx normal Neck: trachea midline, no thyromegaly normal visual inspection Respiratory: normal respiratory effort, lungs clear to auscultation normal percussion Cardiovascular: RRR, no murmur, no edema Heart Sounds: no gallop and no cardiac rub Gastrointestinal (Abdomen): Inspection/Auscultation: + abdomen distended and normal bowel sounds Percussion/Palpation: + abdomen tender; no hepatosplenomegaly and no abdominal mass Musculoskeletal: no cyanosis or clubbing, extremities motor strength 5/5 Head/Neck/Chest: normocephalic, head atraumatic and neck supple Skin: no rashes, warm and dry Neurologic: moves all extremities; no focal motor deficits Lymphatic: no cervical or axillary lymphadenopathy no inguinal lymphadenopathy Results & Data Vital Signs (Past 12 Hours) Vital Signs Temp Pulse Resp BP Pulse Ox 07/27/18 11:19 36.8 C 96 H 22 169/95 H 94 07/27/18 10:22 94 07/27/18 07:09 37.0 C 95 H 22 167/90 H 94 Laboratory Results BMP 07/27/18 06:42 Sodium 142 Potassium 3.1 L D Chloride 110 H Carbon Dioxide 26 BUN 9 Creatinine 0.42 L Glucose 112 H Calcium 8.1 L Liver Function 07/27/18 Range/Units 06:42 Total Bilirubin 1.7 H (0.2-1) mg/dl Direct Bilirubin 0.8 H D (0-0.2) mg/dl AST 13 L (15-37) U/L ALT 52 (12-78) U/L Alkaline Phosphatase 183 H (45-117) U/L Albumin 2.6 L (3.4-5.0) gm/dl Diagnostic Findings Microbiology 07/23/18 23:53 Blood Aerobic Blood Culture - Final Escherichia coli 07/23/18 23:53 Blood Anaerobic Blood Culture - Final 07/23/18 23:54 Blood Aerobic Blood Culture - Final Escherichia coli 07/23/18 23:54 Blood Anaerobic Blood Culture - Final Escherichia coli
[2018-07-27] MEDS ORDERED: POTASSIUM PHOS 3 MMOL/1 ML INFUSION IV STA (18:25)
[2018-07-27] MEDS ORDERED: MENTHOL-ZINC OXIDE 360 APPLN/120 GM TUBE EXT PRN (22:58)
[2018-07-28] MEDS: metroNIDAZOLE 500 MG/100 ML BAG IV SCH ×4 (00:54→23:59)
[2018-07-28] MEDS: CEFEPIME 2,000 MG in SYRINGE 7.5 ML IV SCH ×3 (02:31→18:42)
[2018-07-28 06:51] LABS: BUN Creatinine Ratio 11.6 (10-20); Est GFR (African American) 128.2; Est GFR (Non-African American) 110.6; Magnesium 2.2 mg/dl (1.8-2.4); Phosphorus 1.9 mg/dl (2.5-4.9); Potassium 3.5 mmol/L (3.5-5.1)
[2018-07-28] MEDS: INSULIN ASPART 100 UNITS/ML 3 ML PEN SC SCH ×4 (08:08→22:01)
--- NOTE | 2018-07-28 08:08 | Hospitalist Progress Note ---
Date of Service July 28, 2018 Assessment & Plan (1) Hypophosphatemia: replaced, repeat this evening was somewhat improved. More IV replacement given in preparation for surgery in am. (2) Metabolic encephalopathy: resolved (3) Opioid withdrawal: resolved, back on home narcotic regimen. (4) Gram negative septicemia: Continue cefepime and Flagyl per ID recommendations pending cultures. Clinically she is improved and lab work has trended down is supportive of this. Cholecystectomy planned for tomorrow after recent right upper quadrant ultrasound on 07/24 revealed evidence of acute cholecystitis. (5) Choledocholithiasis: s/p ERCP with stone removal and CBD stent placement, no evidence of post ERCP pancreatitis at this time with negative lipase and improved white blood cell count. (6) Chronic pain syndrome: Takes chronic narcotics long-standing for severe back pain. (7) Severe sepsis: resuscitated and on appropriate antibiotic therapy with improvement in leukocytosis and clinical picture. (8) DVT prophylaxis: Lovenox. Full Code Dispo-cont telemetry monitoring. Stopping IV fluids as patient is tolerating p.o. and there are crackles on lung exam. May need additional assistance after discharge. Will involve case management and order PT/OT. Hayley Argueta DO [facility] Hospitalist Results & Data Vital Signs (Past 12 Hours) Vital Signs Temp Pulse Pulse Resp BP Pulse Ox 07/28/18 06:57 37.1 C 95 H 16 167/80 H 95 07/28/18 03:07 36.8 C 96 H 18 178/89 H 96 07/28/18 00:44 152/85 H 07/27/18 23:23 95 H 07/27/18 23:05 37.0 C 105 H 20 182/92 H 93 Laboratory Results [facility] 07/28/18 05:46 Sodium 140 Potassium 3.5 Chloride 108 H Carbon Dioxide 27 BUN 5 L Creatinine 0.42 L Glucose 116 H Calcium 8.0 L Medications Administered Current Inpatient Medications Calamine/Phenol (Calmoseptine) 1 appln EXT Q6H PRN PRN Reason: sore muscles Stop: 08/26/18 22:59 Dextrose (Dextrose 50%) 25 - 50 ml IV UD PRN; Protocol PRN Reason: Hypoglycemia Protocol Stop: 08/23/18 04:14 Enoxaparin Sodium (Lovenox) 40 mg SQ QAM [facility] Stop: 08/24/18 08:59 Last Admin: 07/27/18 08:09 Dose: 40 mg Documented by: Gabapentin (Neurontin) 100 mg PO TID [facility] Stop: 08/23/18 21:29 Last Admin: 07/27/18 21:08 Dose: 100 mg Documented by: Glucagon (Glucagen) 1 mg SQ UD PRN; Protocol PRN Reason: Hypoglycemia Protocol Stop: 08/23/18 04:14 Glucose (Glucose 40%) 15 - 30 gm PO UD PRN; Protocol PRN Reason: Hypoglycemia Protocol Stop: 08/23/18 04:14 Glucose (Dex4 Glucose) 4 - 8 tabs PO UD PRN; Protocol PRN Reason: Hypoglycemia Protocol Stop: 08/23/18 04:14 Hydromorphone HCl (Dilaudid) 0.5 mg IV Q3H PRN PRN Reason: Pain Stop: 08/07/18 01:04 Last Admin: 07/26/18 12:27 Dose: 0.5 mg Documented by: Metronidazole (Flagyl) 500 mg in 100 mls @ 100 mls/hr IV Q8H [facility] Stop: 08/03/18 07:59 Last Infusion: 07/28/18 02:36 Dose: Infused Documented by: Cefepime HCl 2,000 mg/ Syringe 20 mls @ 5.5 mls/min IV Q8H [facility]; Protocol Stop: 08/03/18 01:59 Last Admin: 07/28/18 02:31 Dose: 5.5 mls/min Documented by: Insulin Aspart (Novolog Flexpen) 0 units SC ACHS [facility] Stop: 08/23/18 07:29 Last Admin: 07/27/18 21:11 Dose: Not Given Documented by: Lisinopril (Zestril) 10 mg PO QAM [facility] Stop: 08/25/18 13:14 Last Admin: 07/27/18 08:09 Dose: 10 mg Documented by: Metoprolol Tartrate (Lopressor) 2.5 mg IV Q6 PRN PRN Reason: Tachycardia Stop: 08/24/18 05:59 Last Admin: 07/25/18 07:29 Dose: 2.5 mg Documented by: Miscellaneous (Carbohydrates For Hypoglycemia) 15 - 30 gm PO UD PRN PRN Reason: Hypoglycemia Treatment Stop: 08/23/18 04:14 Miscellaneous Information (Cefepime Consult Active) 1 ea N/A DAILY PRN PRN Reason: Consult Stop: 08/23/18 01:21 Morphine Sulfate (Ms Contin) 60 mg PO Q12 [facility] Stop: 08/07/18 21:29 Last Admin: 07/27/18 21:08 Dose: 60 mg Documented by: Ondansetron HCl (Zofran) 4 mg IV Q6H PRN PRN Reason: Nausea Stop: 08/24/18 20:33 Last Admin: 07/25/18 20:43 Dose: 4 mg Documented by: Oxycodone/Acetaminophen (Percocet 5mg/325mg) 1 tab PO QID PRN PRN Reason: Pain Stop: 08/07/18 21:25 Last Admin: 07/26/18 16:52 Dose: 1 tab Documented by: Pantoprazole Sodium (Protonix) 40 mg PO DAILY [facility] Stop: 08/24/18 08:59 Last Admin: 07/27/18 08:09 Dose: 40 mg Documented by:
--- NOTE | 2018-07-28 08:10 | Communication Note ---
Date of Service: July 27, 2018 This note is being placed retrospectively. The patient was seen on 07/27 and daily rounds. She is much more oriented and is able to have a conversation. Christiano beltre denies any pain but does report some tension headache. We discussed that she uses Biofreeze topical ointment at home. She is tolerating p.o., she is afebrile. Lisinopril was added per home regimen to help with blood pressure which is running in the 150s to 160 systolic. is at bedside and feels she is 100% better from yesterday. Temp is 36.9 C, HR 105, BP 158/91, 94% RA CONSTITUTIONAL: WNWD, vitals as above, generally well-appearing, no acute distress. EYES: normal conjunctivae, no scleral icterus ENT: MMM, lip trauma upper and lower with swelling is present-continues to improve RESPIRATORY: CTAB, no wheezes, normal respiratory effort CARDIOVASCULAR: reg rate and regular rhythm, S1 and 2 heard without murmurs, gallops or rubs, no JVD, no peripheral edema GASTROINTESTINAL: normal bowel sounds, soft, nontender, nondistended MUSCULOSKELETAL: head is normocephalic and atraumatic, generalized weakness SKIN: warm and dry NEUROLOGIC: moves all extremities equally, no gross focal deficits. She is oriented today and drastically improved from yesterday. Current Inpatient Medications Calamine/Phenol (Calmoseptine) 1 appln EXT Q6H PRN PRN Reason: sore muscles Stop: 08/26/18 22:59 Enoxaparin Sodium (Lovenox) 40 mg SQ QAM [facility] Stop: 08/24/18 08:59 Last Admin: 07/27/18 08:09 Dose: 40 mg Documented by: Gabapentin (Neurontin) 100 mg PO TID [facility] Stop: 08/23/18 21:29 Last Admin: 07/28/18 08:12 Dose: 100 mg Documented by: Hydromorphone HCl (Dilaudid) 0.5 mg IV Q3H PRN PRN Reason: Pain Stop: 08/07/18 01:04 Last Admin: 07/26/18 12:27 Dose: 0.5 mg Documented by: Metronidazole (Flagyl) 500 mg in 100 mls @ 100 mls/hr IV Q8H [facility] Stop: 05/27/19 07:59 Last Admin: 07/28/18 08:12 Dose: 100 mls/hr Documented by: Cefepime HCl 2,000 mg/ Syringe 20 mls @ 5.5 mls/min IV Q8H [facility]; Protocol Stop: 08/03/18 01:59 Last Admin: 07/28/18 02:31 Dose: 5.5 mls/min Documented by: Insulin Aspart (Novolog Flexpen) 0 units SC ACHS [facility] Stop: 08/23/18 07:29 Last Admin: 07/28/18 08:08 Dose: Not Given Documented by: Lisinopril (Zestril) 10 mg PO QAM [facility] Stop: 08/25/18 13:14 Last Admin: 07/28/18 08:13 Dose: 10 mg Documented by: Metoprolol Tartrate (Lopressor) 2.5 mg IV Q6 PRN PRN Reason: Tachycardia Stop: 08/24/18 05:59 Last Admin: 07/25/18 07:29 Dose: 2.5 mg Documented by: Morphine Sulfate (Ms Contin) 60 mg PO Q12 [facility] Stop: 08/07/18 21:29 Last Admin: 07/28/18 08:12 Dose: 60 mg Documented by: Ondansetron HCl (Zofran) 4 mg IV Q6H PRN PRN Reason: Nausea Stop: 08/24/18 20:33 Last Admin: 07/25/18 20:43 Dose: 4 mg Documented by: Oxycodone/Acetaminophen (Percocet 5mg/325mg) 1 tab PO QID PRN PRN Reason: Pain Stop: 08/07/18 21:25 Last Admin: 07/26/18 16:52 Dose: 1 tab Documented by: Pantoprazole Sodium (Protonix) 40 mg PO DAILY [facility] Stop: 08/24/18 08:59 Last Admin: 07/28/18 08:13 Dose: 40 mg Documented by: A/P: 1. Hypophosphatemia 2. Hypertension 3. Metabolic encephalopathy 4. Opioid withdrawal delirium-resolved 5. Gram-negative septicemia secondary to E. coli 6. Choledocholithiasis status post ERCP with stone removal and CBD stent placement 7. Severe sepsis 8. Chronic pain syndrome on narcotics 62-year-old female who presented with gram-negative septicemia and was intubated in the ICU who then was transferred to the floor and subsequently developed opioid withdrawal with delirium. She is improved from a mental status and is oriented today to person place and time. She is having more developed conversations instead of just answering yes/no to questions. She denies any pain but is requesting some topical Biofreeze ointment for her tension headache in her shoulders. General surgery is planning to remove her gallbladder tomorrow. Her chronic pain is under control. From a sepsis standpoint she has been resuscitated and is on appropriate antibiotic therapy. Blood cultures are revealing E. coli that is pansensitive. Will defer to ID for de-escalation. We will plan to repeat blood cultures in the morning. Blood pressure has been notably elevated and lisinopril was added per home regimen. Hypophosphatemia has also been noted and she has undergone replacement. This is still low, will repeat phosphorus tonight and replete as needed in preparation to operation tomorrow. Continue DVT prophylaxis with Lovenox. Cont tele monitoring while requiring IV phosphate supplementation. Hayley Argueta DO [facility] Hospitalist
[2018-07-28] MEDS: MoRPHine SULFATE CR 60 MG TABCR PO SCH ×2 (08:12→20:15)
[2018-07-28] MEDS: GABAPENTIN 100 MG CAP PO SCH ×3 (08:12→20:17)
[2018-07-28] MEDS: PANTOprazole 40 MG TAB PO SCH (08:13)
[2018-07-28] MEDS: LISINOPRIL 10 MG TAB PO SCH (08:13)
[2018-07-28] MEDS ORDERED: ACETAMINOPHEN 325 MG TAB PO PRN (11:25)
[2018-07-28] MEDS ORDERED: MIDAZOLAM HCL 1 MG/ML 2ML VIAL ONE (12:35)
[2018-07-28] MEDS ORDERED: fentaNYL citrate 100 MCG/2 ML VIAL ONE (12:35)
[2018-07-28] MEDS ORDERED: CEFAZOLIN 2,000 MG/15 ML IV PUSH IV ONE (12:55)
[2018-07-28] MEDS ORDERED: BACITRACIN OINT 15 GM TUBE ONE (12:59)
[2018-07-28] MEDS ORDERED: LIDOCAINE HCL 1% 20 ML VIAL ONE (13:00)
[2018-07-28] MEDS ORDERED: BUPIVACAINE 0.5 % 5 MG/1 ML MPF 30ML VIAL ONE (13:00)
--- NOTE | 2018-07-28 13:10 | History & Physical Bridge Note ---
Date of Service July 28, 2018 History & Physical Bridge Note I have examined the patient, reviewed the History & Physical and in the interval since the performance of the History & Physical I have noted the following changes of clinical significance: no changes noted
[2018-07-28] MEDS ORDERED: CEFAZOLIN 2000MG 2,000 MG/15 ML SYR IV ONE (13:11)
[2018-07-28] MEDS ORDERED: DEXAMETHASONE SOD INJ 4 MG/ML VIAL IV PRN (13:21)
[2018-07-28] MEDS ORDERED: HYDROmorphone INJ 2 MG/ML SYR/VIAL IV PRN (13:21)
[2018-07-28] MEDS ORDERED: ONDANSETRON INJ 2 MG/ML 2 ML VIAL IV PRN (13:21)
[2018-07-28] MEDS ORDERED: ePHEDrine sulfate 50 MG/ML AMP IV PRN (13:21)
[2018-07-28] MEDS ORDERED: ATROPINE SULFATE 0.1 MG/ML 10ML SYR IV PRN (13:21)
--- NOTE | 2018-07-28 14:23 | Hospitalist Progress Note ---
Date of Service July 28, 2018 Assessment & Plan (1) Hypophosphatemia: replaced IV, will add PO supplementation at this time. (2) Metabolic encephalopathy: resolved (3) Opioid withdrawal: resolved, back on home narcotic regimen. (4) Gram negative septicemia: Continue cefepime and Flagyl per ID recommendations. She is clinically improved. Cultures growing franco-sensitive E coli. Defer to ID to de-escalate antibiotics. Lap tiana today for acute cholecystitis. (5) Choledocholithiasis: s/p ERCP with stone removal and CBD stent placement, no evidence of post ERCP pancreatitis at this time with negative lipase and improved white blood cell count. (6) Chronic pain syndrome: Takes chronic narcotics long-standing for severe back pain. (7) Severe sepsis: resuscitated and on appropriate antibiotic therapy with improvement in leukocytosis and clinical picture. (8) DVT prophylaxis: Lovenox. Full Code Dispo-cont telemetry monitoring. Stopping IV fluids as patient is tolerating p.o. and there are crackles on lung exam. May need additional assistance after discharge. Will involve case management and order PT/OT. Hayley Argueta DO [facility] Hospitalist Subjective mentating at baseline currently nervous about her upcoming procedure and had some IV questions doing well and no other symptoms at this time. Review of Systems Review of Systems: All systems reviewed & are unremarkable except as noted in HPI & below Physical Exam Physical Exam: CONSTITUTIONAL: WNWD, vitals as above, generally well- appearing, no acute distress. EYES: normal conjuctivae, no scleral icterus ENT: MMM, lip trauma upper and lower with swelling is present RESPIRATORY: CTAB, no respiratory distress CARDIOVASCULAR: reg rate and regular rhythm, S1 and 2 heard without murmurs, gallops or rubs, no JVD, no peripheral edema GASTROINTESTINAL: normal bowel sounds, soft, nontender, nondistended MUSCULOSKELETAL: head is normocephalic and atraumatic, generalized weakness SKIN: warm and dry NEUROLOGIC: moves all extremities equally, no gross focal deficits. Oriented Results & Data Vital Signs (Past 12 Hours) Vital Signs Temp Pulse Resp BP Pulse Ox 07/28/18 13:14 36.9 C 91 H 18 185/91 H 97 07/28/18 11:38 36.9 C 89 22 179/92 H 95 07/28/18 06:57 37.1 C 95 H 16 167/80 H 95 07/28/18 03:07 36.8 C 96 H 18 178/89 H 96 Laboratory Results BMP 07/28/18 05:46 Sodium 140 Potassium 3.5 Chloride 108 H Carbon Dioxide 27 BUN 5 L Creatinine 0.42 L Glucose 116 H Calcium 8.0 L Medications Administered Current Inpatient Medications Acetaminophen (Tylenol) 650 mg PO Q6H PRN PRN Reason: Pain or Fever Stop: 08/27/18 11:24 Atropine Sulfate (Atropine Sulfate) 0.5 mg IV Q1M PRN PRN Reason: PACU Use-HR<40 &/or Bradycardi Stop: 07/28/18 18:21 Calamine/Phenol (Calmoseptine) 1 appln EXT Q6H PRN PRN Reason: sore muscles Stop: 08/26/18 22:59 Dexamethasone (Decadron) 4 mg IV ONCE PRN PRN Reason: PACU Use Only-Nausea/Vomiting Stop: 07/28/18 18:21 Dextrose (Dextrose 50%) 25 - 50 ml IV UD PRN; Protocol PRN Reason: Hypoglycemia Protocol Stop: 08/23/18 04:14 Enoxaparin Sodium (Lovenox) 40 mg SQ QAM [facility] Stop: 08/24/18 08:59 Last Admin: 07/27/18 08:09 Dose: 40 mg Documented by: Ephedrine Sulfate (Ephedrine Sulfate) 5 mg IV Q5M PRN PRN Reason: PACU Use Only-SBP<90 mmHg Stop: 07/28/18 18:21 Fentanyl Citrate (Fentanyl Citrate) 50 mcg IV Q5M PRN PRN Reason: PACU Use Only-Pain Stop: 07/28/18 18:21 Gabapentin (Neurontin) 100 mg PO TID [facility] Stop: 08/23/18 21:29 Last Admin: 07/28/18 08:12 Dose: 100 mg Documented by: Glucagon (Glucagen) 1 mg SQ UD PRN; Protocol PRN Reason: Hypoglycemia Protocol Stop: 08/23/18 04:14 Glucose (Glucose 40%) 15 - 30 gm PO UD PRN; Protocol PRN Reason: Hypoglycemia Protocol Stop: 08/23/18 04:14 Glucose (Dex4 Glucose) 4 - 8 tabs PO UD PRN; Protocol PRN Reason: Hypoglycemia Protocol Stop: 08/23/18 04:14 Hydromorphone HCl (Dilaudid) 0.5 mg IV Q3H PRN PRN Reason: Pain Stop: 08/07/18 01:04 Last Admin: 07/26/18 12:27 Dose: 0.5 mg Documented by: Hydromorphone HCl (Dilaudid) 0.5 mg IV Q5M PRN PRN Reason: PACU Use Only-Pain Stop: 07/28/18 18:21 Metronidazole (Flagyl) 500 mg in 100 mls @ 100 mls/hr IV Q8H [facility] Stop: 08/03/18 07:59 Last Infusion: 07/28/18 09:43 Dose: Infused Documented by: Cefepime HCl 2,000 mg/ Syringe 20 mls @ 5.5 mls/min IV Q8H [facility]; Protocol Stop: 08/03/18 01:59 Last Admin: 07/28/18 10:04 Dose: 5.5 mls/min Documented by: Insulin Aspart (Novolog Flexpen) 0 units SC ACHS [facility] Stop: 08/23/18 07:29 Last Admin: 07/28/18 13:17 Dose: Not Given Documented by: Lisinopril (Zestril) 10 mg PO QAM [facility] Stop: 08/25/18 13:14 Last Admin: 07/28/18 08:13 Dose: 10 mg Documented by: Miscellaneous (Carbohydrates For Hypoglycemia) 15 - 30 gm PO UD PRN PRN Reason: Hypoglycemia Treatment Stop: 08/23/18 04:14 Miscellaneous Information (Cefepime Consult Active) 1 ea N/A DAILY PRN PRN Reason: Consult Stop: 08/23/18 01:21 Morphine Sulfate (Ms Contin) 60 mg PO Q12 [facility] Stop: 08/07/18 21:29 Last Admin: 07/28/18 08:12 Dose: 60 mg Documented by: Ondansetron HCl (Zofran) 4 mg IV Q6H PRN PRN Reason: Nausea Stop: 08/24/18 20:33 Last Admin: 07/25/18 20:43 Dose: 4 mg Documented by: Ondansetron HCl (Zofran) 4 mg IV ONCE PRN PRN Reason: PACU Use Only-Nausea/Vomiting Stop: 07/28/18 18:21 Oxycodone/Acetaminophen (Percocet 5mg/325mg) 1 tab PO QID PRN PRN Reason: Pain Stop: 08/07/18 21:25 Last Admin: 07/26/18 16:52 Dose: 1 tab Documented by: Pantoprazole Sodium (Protonix) 40 mg PO DAILY [facility] Stop: 08/24/18 08:59 Last Admin: 07/28/18 08:13 Dose: 40 mg Documented by: Potassium Phosphate (Phospha 250 Neutral [id number] Mg) 1 tab PO QID [facility] Stop: 07/31/18 12:59
--- NOTE | 2018-07-28 14:24 | Post Operative Brief Note ---
Immediate Post Op Note v1 Date of Surgery July 28, 2018 Pre & Post Diagnosis Operation Date: 07/24/18 05:10 Pre-Op Diagnosis: Hyperbilirubinemia: Acute Cholecystisis Post-Op Diagnosis: Hyperbilirubinemia: Acute Cholecystisis Operation Date: 07/28/18 13:15 Pre-Op Diagnosis: acute cholecystitis Post-Op Diagnosis: acute cholecystitis Procedure Operation Date: 07/24/18 05:10 Actual Procedures p Endoscopic Retrograde Cholangiopancreatography(Not Applicable) - Dominick Saavedra MD Operation Date: 07/28/18 13:15 Actual Procedures p Laparoscopic Cholecystectomy(Not Applicable) - Carol Saucedo MD Surgeon Carol Saucedo MD Molecular Pathologist Fidelia Morillo. PA Estimated Blood Loss 10 Findings Consistent with Post-Op Diagnosis acute cholecystitis Fluids 800ml Specimens gallbladder Anesthesia Type General Complications none Disposition Accompanied Patient To Recovery: Yes Disposition: Recovery Room Overlapping Procedure I was immediately available: during the entire case.
[2018-07-28] MEDS ORDERED: PROPOFOL IV EMULSION 10 MG/ML 20 ML VIAL IV ONE (15:01)
[2018-07-28] MEDS ORDERED: PHENYLEPHRINE HCL 10 MG/ML VIAL ONE (15:01)
[2018-07-28] MEDS ORDERED: GLYCOPYRROLATE 0.2 MG/ML VIAL ONE (15:01)
[2018-07-28] MEDS ORDERED: DEXAMETHASONE SOD INJ 4 MG/ML VIAL ONE (15:01)
[2018-07-28] MEDS ORDERED: ONDANSETRON INJ 2 MG/ML 2 ML VIAL ONE (15:01)
[2018-07-28] MEDS ORDERED: NEOSTIGMINE METHYLSULFATE 5 MG/5 ML SYR ONE (15:01)
[2018-07-28] MEDS ORDERED: ePHEDrine sulfate 50 MG/ML AMP ONE (15:01)
[2018-07-28] MEDS ORDERED: LIDOCAINE HCL 2% 2 ML VIAL/AMP(20MG/ML) INFIL ONE (15:01)
[2018-07-28] MEDS: fentaNYL citrate 100 MCG/2 ML VIAL IV PRN ×3 (15:05→15:22)
--- NOTE | 2018-07-28 15:47 | Anesthesiology Progress Note ---
Date of Service July 28, 2018 Anesthesia Post Procedure Vital Signs Vital Signs: Temp Pulse Pulse Pulse Resp BP BP 07/28/18 15:40 100 H 16 169/90 H 07/28/18 15:30 96 H 13 166/80 H 07/28/18 15:20 94 H 18 173/88 H 07/28/18 15:10 89 20 166/92 H 07/28/18 15:00 86 22 166/90 H 07/28/18 14:52 36.7 C 91 H 14 164/98 H 07/28/18 13:14 36.9 C 91 H 18 185/91 H 07/28/18 11:38 36.9 C 89 22 179/92 H 07/28/18 06:57 37.1 C 95 H 16 167/80 H 07/28/18 03:07 36.8 C 96 H 18 178/89 H 07/28/18 00:44 152/85 H 07/27/18 23:23 95 H 07/27/18 23:05 37.0 C 105 H 20 182/92 H 07/27/18 19:36 37.3 C 98 H 18 161/89 H 07/27/18 16:00 36.9 C 105 H 96 H 18 158/91 H Pulse Ox 07/28/18 15:40 95 07/28/18 15:30 95 07/28/18 15:20 96 07/28/18 15:10 98 07/28/18 15:00 100 07/28/18 14:52 97 07/28/18 13:14 97 07/28/18 11:38 95 07/28/18 06:57 95 07/28/18 03:07 96 07/28/18 00:44 07/27/18 23:23 07/27/18 23:05 93 07/27/18 19:36 94 07/27/18 16:00 94 Pain Intensity Bilateral Back: Pain Intensity: 7 Head: Pain Intensity: 4 Abdomen: Pain Intensity: 3 Transfer of Care Handoff Completed per policy Notes Mental Status: alert / awake / arousable and participated in evaluation Patient Amnestic to Procedure: Yes Nausea / Vomiting: adequately controlled Pain: adequately controlled Airway Patency, RR, SpO2: stable & adequate BP & HR: stable & adequate Hydration State: stable & adequate Anesthetic Complications: no major complications apparent
[2018-07-28] MEDS ORDERED: CHECK SCOPOLAMINE PATCH PLACEMENT SCH (16:25)
[2018-07-28] MEDS ORDERED: PROMETHAZINE HCL 25 MG TAB PO PRN (16:25)
[2018-07-28] MEDS ORDERED: ACETAMINOPHEN 500 MG TAB PO PRN (16:25)
[2018-07-28] MEDS ORDERED: SCOPOLAMINE 1.5 MG TDSY SCH (16:25)
[2018-07-28] MEDS: POT PHOSPHATE MONOBASIC W/ SOD TAB PO SCH ×3 (16:43→20:16)
[2018-07-28] MEDS: OXYCODONE/ACETAMINOPHEN 5mg/325mg TAB PO PRN (18:18)
[2018-07-28] MEDS: OMEGA-3 (PURIFIED FISH OIL) 1 GM CAP PO SCH (20:15)
[2018-07-28] MEDS: HYDROmorphone INJ 0.5 MG/0.5 ML SYR IV PRN (20:22)
--- NOTE | 2018-07-28 22:17 | Operative Report ---
DATE OF OPERATION: 07/28/2018 PREOPERATIVE DIAGNOSIS: Acute cholecystitis. POSTOPERATIVE DIAGNOSIS: Acute cholecystitis. OPERATION: Laparoscopic cholecystectomy. SURGEON: Carol Saucedo MD. DEBRIDGING MACHINE OPERATOR: Fidelia Morillo PA-C. ANESTHESIA: General. ESTIMATED BLOOD LOSS: About 10 mL. FINDINGS: Acute cholecystitis. COMPLICATIONS: None. INDICATIONS FOR THE PROCEDURE: This is a 62-year-old female who was admitted to the hospital for acute cholecystitis. We recommend to do the laparoscopic cholecystectomy, possible open, possible cholangiogram. I did talk to the patient's about the benefit and risk, alternate procedure. I indicated the risks may include but not limited such as bleeding, infection, injury to common bile duct, injury to the bowel, myocardial infarction, DVT, stroke, even . The patient understands. The patient has signed informed consent and I answered all questions. DETAILS OF PROCEDURE: We brought the patient to the OR, put the patient in the supine position. The patient received SCD on bilateral legs to prevent DVT. Also, patient received 2 g Ancef IV for prophylactic antibiotics. The patient received general anesthesia without difficulty. The abdomen was prepped and draped in routine sterile fashion. After a timeout, I injected local anesthesia by using 1% lidocaine mixed with 0.5% Marcaine and made a small incision just above umbilicus, opened fascia and opened peritoneum under direct vision. We put a Naveed trocar in, connected to CO2 to create pneumoperitoneum. Flow rate was 6 liters per minute. Pressure not more than 14 mmHg. Once we got a nice pneumoperitoneum, we put the camera in, looked around the abdomen, shows normal finding on the liver. However, the gallbladder showed significant distention with gallbladder wall thickening, edema, confirmed diagnosis of acute cholecystitis. Then, we put another two 5 mm trocar on the right upper quadrant, one 11 trocar on the epigastric area. Once all trocars were in, we put a grasper in to hold the base of the gallbladder, put direction to the diaphragm and put another grasper to hold the pouch of the gallbladder, put latter to expose the triangle of Calot. The cystic duct was identified and mobilized. I put two 10 mm metal clips on the proximal cystic duct, one on the distal cystic duct. I used scissor for transection of the cystic duct. Rechecked, no bile leak and no active bleeding. Then the cystic artery was identified and mobilized. I put two 10 mm metal clips on the proximal cystic artery, one on the distal cystic artery. I then used a scissor to transection of cystic artery. Rechecked, no active bleeding. Then we used the Bovie to take down gallbladder from the liver bed. Rechecked, no active bleeding from the liver bed, no bile leak from the liver bed. Then we removed the gallbladder through the catch bag and then we reinserted Naveed trocar in and connected to CO2 to create pneumoperitoneum, again looked around the abdomen, no active bleeding and no bile leak from the liver bed. Then we removed all trocar under direct vision. No active bleeding from the trocar sites. Pneumoperitoneum was released. I closed the umbilical incision, fascial layer by using 0 Vicryl [id number] x2. Closed subcutaneous layer by using 2-0 Vicryl interrupted and closed skin by using 4-0 Vicryl continuous running, closed another two 5 mm trocar site of skin only by using 4-0 Vicryl and closed the epigastrium incision. Then using 0 Vicryl [id number] x2 fashion closed subcutaneous layer by using 2-0 Vicryl interrupted and closed skin by using 4-0 Vicryl. Then we put the dressing on. The patient tolerated the procedure well. All instrument, needle, sponge count were correct x2 at the end of case. The patient transferred to recovery room in stable condition. After the procedure, I did talk to the patient's about the OR finding and procedure we did. He understands and the specimen sent to pathology. I attest to the content of the Intraoperative Record and any orders documented therein. Any exceptions are noted below. SUSAN
[2018-07-29] MEDS: CEFEPIME 2,000 MG in SYRINGE 7.5 ML IV SCH ×3 (02:20→16:59)
[2018-07-29] MEDS: OXYCODONE/ACETAMINOPHEN 5mg/325mg TAB PO PRN ×3 (07:29→23:41)
[2018-07-29 07:50] LABS: Hematocrit (blood only) 31.9 % (37-47); Hemoglobin 10.3 g/dL (12.0-16.0); Mean Corpuscular Hgb Conc 32.3 g/dL (32-36); Mean Corpuscular Volume 90.6 fL (80-100); Mean Platelet Volume 11.1 fL (7.4-10.4); Platelet Count 180 K/uL (130-400); RDW Coefficient of Variation 13.8 % (11.5-14.5); RDW Standard Deviation 45.8 fL (36.4-46.3); Red Blood Count 3.52 M/uL (4.2-5.4); White Blood Count 7.08 K/uL (4.8-10.8)
[2018-07-29 08:24] LABS: BUN Creatinine Ratio 16.3 (10-20); Bilirubin Direct 0.4 mg/dl (0-0.2); Bilirubin,Total 0.9 mg/dl (0.2-1); Calcium 8.9 mg/dl (8.5-10.1); Creatinine Clr Calc Pharmacy 115.5 ml/min; Est GFR (Non-African American) 98.4; Magnesium 2.1 mg/dl (1.8-2.4); Phosphorus 2.2 mg/dl (2.5-4.9); Potassium 3.5 mmol/L (3.5-5.1); Total Protein 6.3 gm/dl (6.4-8.2)
--- NOTE | 2018-07-29 08:55 | Anesthesiology Progress Note ---
Date of Service July 29, 2018 Anesthesia Post Procedure Vital Signs Vital Signs: Temp Pulse Pulse Pulse Resp BP BP 07/29/18 07:45 36.8 C 92 H 17 126/82 07/29/18 03:45 37.4 C 97 H 16 122/69 07/28/18 22:56 37.3 C 98 H 16 156/82 H 07/28/18 17:35 36.4 C L 83 17 171/95 H 07/28/18 16:39 36.6 C 91 H 17 165/81 H 07/28/18 16:10 36.7 C 102 H 16 177/87 H 07/28/18 15:50 36.4 C L 99 H 21 161/92 H 07/28/18 15:40 100 H 16 169/90 H 07/28/18 15:30 96 H 13 166/80 H 07/28/18 15:20 94 H 18 173/88 H 07/28/18 15:10 89 20 166/92 H 07/28/18 15:00 86 22 166/90 H 07/28/18 14:52 36.7 C 91 H 14 164/98 H 07/28/18 13:14 36.9 C 91 H 18 185/91 H 07/28/18 11:38 36.9 C 89 22 179/92 H Pulse Ox 07/29/18 07:45 93 07/29/18 03:45 92 07/28/18 22:56 95 07/28/18 17:35 93 07/28/18 16:39 93 07/28/18 16:10 93 07/28/18 15:50 95 07/28/18 15:40 95 07/28/18 15:30 95 07/28/18 15:20 96 07/28/18 15:10 98 07/28/18 15:00 100 07/28/18 14:52 97 07/28/18 13:14 97 07/28/18 11:38 95 Pain Intensity Bilateral Back: Pain Intensity: 0 Head: Pain Intensity: 0 Abdomen: Pain Intensity: 6 Notes Mental Status: alert / awake / arousable and participated in evaluation Patient Amnestic to Procedure: Yes Nausea / Vomiting: adequately controlled Pain: adequately controlled Airway Patency, RR, SpO2: stable & adequate BP & HR: stable & adequate Hydration State: stable & adequate Anesthetic Complications: no major complications apparent and Pt Satisfied with anesthetic care
[2018-07-29] MEDS: INSULIN ASPART 100 UNITS/ML 3 ML PEN SC SCH ×4 (08:57→21:35)
[2018-07-29] MEDS: MoRPHine SULFATE CR 60 MG TABCR PO SCH ×2 (08:57→21:32)
[2018-07-29] MEDS: metroNIDAZOLE 500 MG/100 ML BAG IV SCH ×3 (08:58→23:35)
[2018-07-29] MEDS: LISINOPRIL 10 MG TAB PO SCH (08:59)
[2018-07-29] MEDS: GABAPENTIN 100 MG CAP PO SCH ×3 (08:59→21:32)
[2018-07-29] MEDS: PANTOprazole 40 MG TAB PO SCH (08:59)
[2018-07-29] MEDS: SIMVASTATIN 10 MG TAB PO SCH (09:00)
[2018-07-29] MEDS: POT PHOSPHATE MONOBASIC W/ SOD TAB PO SCH ×4 (09:00→21:33)
[2018-07-29] MEDS: OMEGA-3 (PURIFIED FISH OIL) 1 GM CAP PO SCH ×3 (09:00→21:33)
[2018-07-29 10:28] LABS: Hydrocodone Urine NEGATIVE NG/ML (CUTOFF=50); Hydromor Urine 155 NG/ML (CUTOFF=50); Morphine Urine 5860 NG/ML (CUTOFF=50); Norhydrocodone Conf Ur NEGATIVE NG/ML (CUTOFF=50); Noroxycodone Urine 1310 NG/ML (CUTOFF=50); Oxycodone Urine 152 NG/ML (CUTOFF=50)
--- NOTE | 2018-07-29 15:08 | Surgery Progress Note ---
Date of Service July 29, 2018 Assessment & Plan (1) Cholangitis: POD # 1 s/p laparoscopic cholecystectomy POD # 5 s/p ERCP with biliary stent placement for choledocholithiasis and cholangitis - vitals stable, afebrile post op - leukocytosis resolved - post op pain moderate, controlled, on chronic narcotics for chronic back pain - no n/v, tolerating diet Plan: Plan for discharge home tomorrow continue current pain management as needed continue IV abx, transition to oral on discharge continue current medical management Dr. Saucedo has seen patient, agrees with above Subjective feeling okay postoperative pain at incision sites, getting her home Percocet/Morphine and Dilaudid IV. (Per [facility] she had Dilaudid 0.5 mg IV last night at 20:00) tolerating regular diet no nausea or vomiting no chest pain or shortness of breath urinating without difficulty Physical Exam Constitutional: WD/WN, vitals as above no acute distress and not ill appearing Respiratory: normal respiratory effort; no respiratory distress Gastrointestinal (Abdomen): Percussion/Palpation: + abdomen tender (at incision sites , appropriate post op); no guarding, abdomen not rigid and + abdomen not soft Skin: no rashes, warm and dry + incision (covered with dry dressings, intact) Psychiatric: A+Ox3, euthymic affect Results & Data Vital Signs (Past 12 Hours) Vital Signs Temp Pulse Pulse Resp BP BP Pulse Ox 07/29/18 12:15 36.9 C 94 H 18 134/80 95 07/29/18 07:45 36.8 C 92 H 17 126/82 93 07/29/18 03:45 37.4 C 97 H 16 122/69 92
[2018-07-29] MEDS: HYDROmorphone INJ 0.5 MG/0.5 ML SYR IV PRN (18:53)
--- NOTE | 2018-07-29 19:00 | Hospitalist Progress Note ---
Date of Service July 29, 2018 Assessment & Plan (1) Hypophosphatemia: Continue PO supplementation Monitor (2) Metabolic encephalopathy: resolved (3) Opioid withdrawal: resolved, back on home narcotic regimen. (4) Gram negative septicemia: Blood Culture: E.coli Repeat Blood Cultures: Negative Continue IV cefepime and Flagyl per ID recommendations De-escalate antibiotics as able (5) Choledocholithiasis: Cholangitis s/p ERCP with stone removal and CBD stent placement S/P Laparoscopic cholecystectomy POD #1 Tolerating diet Surgery following Pain is controlled (6) Chronic pain syndrome: Takes chronic narcotics long-standing for severe back pain. (7) Severe sepsis: Resolved (8) DVT prophylaxis: Lovenox SQ Code Status Full Code Disposition: PT/OT prior to discharge Subjective Patient is seen and examined at bedside Reports mild pain at surgical site Tolerating diet Discussed with surgery today Denies any chest pain, shortness of breath, dizziness nausea Family at bedside Review of Systems Review of Systems: All systems reviewed & are unremarkable except as noted in HPI & below Physical Exam Physical Exam: Physical Exam: Vitals signs as noted above General Appearance:Moderately built and nourished, no apparent distress Head: normocephalic, Atraumatic Eyes: normal inspection, EOMI Neck: supple, Trachea midline Respiratory/Chest: Normal breath sounds, CTA Cardiovascular: S1, S2, No murmur Abdomen/GI:Soft, +Surgical site in dressing, mild tender, Bowel sounds present Extremities/Musculoskelatal:normal inspection, no edema Neurologic/Psych:AAOX3, grossly no focal neurological deficits Skin: normal color, warm Results & Data Vital Signs (Past 12 Hours) Vital Signs Temp Pulse Pulse Resp BP BP Pulse Ox 07/29/18 16:26 97 H 158/71 H 07/29/18 15:07 37 C 95 H 16 169/79 H 91 07/29/18 12:15 36.9 C 94 H 18 134/80 95 07/29/18 07:45 36.8 C 92 H 17 126/82 93 Laboratory Results Short CBC 07/29/18 Range/Units 07:34 WBC 7.08 (4.8-10.8) K/uL Hgb 10.3 L (12.0-16.0) g/dL Hct 31.9 L (37-47) % Plt Count 180 (130-400) K/uL BMP 05/22/19 07:34 Sodium 143 Potassium 3.5 Chloride 109 H Carbon Dioxide 29 BUN 10 D Creatinine 0.60 Glucose 123 H Calcium 8.9 Liver Function 07/29/18 Range/Units 07:34 Total Bilirubin 0.9 (0.2-1) mg/dl Direct Bilirubin 0.4 H (0-0.2) mg/dl AST 16 (15-37) U/L ALT 35 (12-78) U/L Alkaline Phosphatase 187 H (45-117) U/L Albumin 3.0 L (3.4-5.0) gm/dl
[2018-07-30] MEDS: CEFEPIME 2,000 MG in SYRINGE 7.5 ML IV SCH ×2 (02:34→10:47)
--- NOTE | 2018-07-30 03:16 | Infectious Disease Progress Nt ---
Date of Service July 29, 2018 Assessment & Plan (1) Gram negative septicemia: Patient with E. coli sepsis in the setting of cholecystitis, cholangitis, and choledocholithiasis now status post ERCP, stenting, and now cholecystectomy.. Patient will be continued on ceftriaxone for now, will con plant chief transition to oral antibiotics in the near future once taking adequate po. Will follow. (2) Acute cholecystitis: (3) Cholangitis: (4) Choledocholithiasis: Subjective Patient is seen and examined at bedside Doing much better today Abd pain is controlled Tolerating diet No fever. Discussed with surgery and hospitalist today. Review of Systems Review of Systems: All systems reviewed & are unremarkable except as noted in HPI & below Physical Exam Constitutional: well nourished and + altered mental status; no acute distress Eyes: PERRL, conjunctivae normal, anicteric sclerae ENMT: external ear and nose normal, oropharynx normal Neck: trachea midline, no thyromegaly normal visual inspection Respiratory: normal respiratory effort, lungs clear to auscultation normal percussion Cardiovascular: RRR, no murmur, no edema Heart Sounds: no gallop and no cardiac rub Gastrointestinal (Abdomen): Inspection/Auscultation: + abdomen distended and normal bowel sounds Percussion/Palpation: + abdomen tender; no hepatosplenomegaly and no abdominal mass Musculoskeletal: no cyanosis or clubbing, extremities motor strength 5/5 Head/Neck/Chest: normocephalic, head atraumatic and neck supple Skin: no rashes, warm and dry Neurologic: moves all extremities; no focal motor deficits Lymphatic: no cervical or axillary lymphadenopathy no inguinal lymphadenopathy Results & Data Vital Signs (Past 12 Hours) Vital Signs Temp Pulse Resp BP Pulse Ox 07/29/18 23:45 37.3 C 94 H 16 164/75 H 93 07/29/18 16:26 97 H 158/71 H Laboratory Results Short CBC 07/29/18 Range/Units 07:34 WBC 7.08 (4.8-10.8) K/uL Hgb 10.3 L (12.0-16.0) g/dL Hct 31.9 L (37-47) % Plt Count 180 (130-400) K/uL BMP 07/29/18 07:34 Sodium 143 Potassium 3.5 Chloride 109 H Carbon Dioxide 29 BUN 10 D Creatinine 0.60 Glucose 123 H Calcium 8.9 Liver Function 07/29/18 Range/Units 07:34 Total Bilirubin 0.9 (0.2-1) mg/dl Direct Bilirubin 0.4 H (0-0.2) mg/dl AST 16 (15-37) U/L ALT 35 (12-78) U/L Alkaline Phosphatase 187 H (45-117) U/L Albumin 3.0 L (3.4-5.0) gm/dl Diagnostic Findings Microbiology 07/28/18 08:31 Blood Aerobic Blood Culture - Preliminary No growth in Aerobic bottle after 24 hours. 07/28/18 08:31 Blood Anaerobic Blood Culture - Preliminary No growth in Anaerobic bottle after 24 hours. 07/28/18 08:19 Blood Aerobic Blood Culture - Preliminary No growth in Aerobic bottle after 24 hours. 07/28/18 08:19 Blood Anaerobic Blood Culture - Preliminary No growth in Anaerobic bottle after 24 hours. 07/23/18 23:53 Blood Aerobic Blood Culture - Final Escherichia coli 07/23/18 23:53 Blood Anaerobic Blood Culture - Final 07/23/18 23:54 Blood Aerobic Blood Culture - Final Escherichia coli 07/23/18 23:54 Blood Anaerobic Blood Culture - Final Escherichia coli
[2018-07-30] MEDS: OXYCODONE/ACETAMINOPHEN 5mg/325mg TAB PO PRN ×2 (07:20→13:30)
[2018-07-30 07:57] LABS: BUN Creatinine Ratio 26.8 (10-20); Calcium 8.5 mg/dl (8.5-10.1); Est GFR (African American) 136.1; Est GFR (Non-African American) 117.5; Potassium 3.2 mmol/L (3.5-5.1)
[2018-07-30 07:58] LABS: Phosphorus 2.4 mg/dl (2.5-4.9)
[2018-07-30] MEDS ORDERED: POTASSIUM CHLORIDE 10 MEQ TABCR PO STA (08:12)
[2018-07-30] MEDS: INSULIN ASPART 100 UNITS/ML 3 ML PEN SC SCH ×2 (08:20→12:38)
[2018-07-30] MEDS ORDERED: AMLODIPINE BESYLATE 5 MG TAB PO SCH (09:00)
[2018-07-30] MEDS: metroNIDAZOLE 500 MG/100 ML BAG IV SCH (09:15)
[2018-07-30] MEDS: MoRPHine SULFATE CR 60 MG TABCR PO SCH (09:15)
[2018-07-30] MEDS: POT PHOSPHATE MONOBASIC W/ SOD TAB PO SCH ×2 (09:16→14:09)
[2018-07-30] MEDS: OMEGA-3 (PURIFIED FISH OIL) 1 GM CAP PO SCH ×2 (09:16→14:09)
[2018-07-30] MEDS: LISINOPRIL 10 MG TAB PO SCH (09:16)
[2018-07-30] MEDS: GABAPENTIN 100 MG CAP PO SCH ×2 (09:17→14:09)
[2018-07-30] MEDS: SIMVASTATIN 10 MG TAB PO SCH (09:17)
[2018-07-30] MEDS: PANTOprazole 40 MG TAB PO SCH (09:17)
[2018-07-30 12:59] LABS: Albumin Level 2.8 gm/dl (3.4-5.0); Bilirubin Direct 0.4 mg/dl (0-0.2); Bilirubin,Total 0.7 mg/dl (0.2-1); Total Protein 5.9 gm/dl (6.4-8.2)
--- NOTE | 2018-07-30 13:16 | Surgery Progress Note ---
Date of Service pt is doing better, no abdominal pain, she tolerated diet, no nausea, no vomiting, LFT normal, July 30, 2018 Assessment & Plan (1) Cholangitis: POD # 1 s/p laparoscopic cholecystectomy POD # 5 s/p ERCP with biliary stent placement for choledocholithiasis and cholangitis - vitals stable, afebrile post op - leukocytosis resolved - post op pain moderate, controlled, on chronic narcotics for chronic back pain - no n/v, tolerating diet Plan: Plan for discharge home tomorrow continue current pain management as needed continue IV abx, transition to oral on discharge continue current medical management Dr. Saucedo has seen patient, agrees with above 07/30/2018, 1:15PM doing fine, LEFT normal, pt can be discharged home today, she can take a shower on 07/31/2018, f/U me in 1-2 weeks, Thanks, please call with questions, Subjective Patient is seen and examined at bedside Reports mild pain at surgical site Tolerating diet Discussed with surgery today Denies any chest pain, shortness of breath, dizziness nausea Family at bedside Physical Exam Constitutional: WD/WN, vitals as above Neck: trachea midline, no thyromegaly Respiratory: normal respiratory effort, lungs clear to auscultation Cardiovascular: RRR, no murmur, no edema Gastrointestinal (Abdomen): Percussion/Palpation: abdomen soft NT, ND all incisions heal well, no redness, no drainage Neurologic: awake Psychiatric: Orientation: alert and oriented x 3 Results & Data Vital Signs (Past 12 Hours) Vital Signs Temp Pulse Resp BP Pulse Ox 07/30/18 06:49 37.5 C 89 18 171/97 H 93 Laboratory Results Abnormal lab results 07/29/18 07/29/18 07/30/18 Range/Units 17:03 20:41 06:50 Potassium 3.2 L (3.5-5.1) mmol/L Chloride 109 H (98-107) mmol/L Creatinine 0.35 L (0.6-1.2) mg/dl BUN/Creatinine Ratio 26.8 H (10-20) Glucose 119 H (70-99) mg/dl POC Glucose 175 H 105 H (70-99) Phosphorus 2.4 L (2.5-4.9) mg/dl Direct Bilirubin (0-0.2) mg/dl Alkaline Phosphatase (45-117) U/L Total Protein (6.4-8.2) gm/dl Albumin (3.4-5.0) gm/dl 07/30/18 07/30/18 Range/Units 06:50 08:07 Potassium (3.5-5.1) mmol/L Chloride (98-107) mmol/L Creatinine (0.6-1.2) mg/dl BUN/Creatinine Ratio (10-20) Glucose (70-99) mg/dl POC Glucose 113 H (70-99) Phosphorus (2.5-4.9) mg/dl Direct Bilirubin 0.4 H (0-0.2) mg/dl Alkaline Phosphatase 149 H (45-117) U/L Total Protein 5.9 L (6.4-8.2) gm/dl Albumin 2.8 L (3.4-5.0) gm/dl
--- NOTE | 2018-07-30 14:49 | Hospitalist Progress Note ---
Date of Service July 30, 2018 Assessment & Plan (1) Hypophosphatemia: Continue PO supplementation Monitor (2) Metabolic encephalopathy: resolved (3) Opioid withdrawal: resolved, back on home narcotic regimen. (4) Gram negative septicemia: Blood Culture: E.coli Repeat Blood Cultures: Negative Received IV cefepime and Flagyl>>>>>Plan to trasnsition to PO omnicef and flagyl as per ID recommendations (5) Choledocholithiasis: Cholangitis s/p ERCP with stone removal and CBD stent placement S/P Laparoscopic cholecystectomy POD #2 Tolerating diet Surgery following Pain is controlled Needs follow up with Surgery upon discharge (6) Chronic pain syndrome: Takes chronic narcotics long-standing for severe back pain. (7) Severe sepsis: Resolved (8) DVT prophylaxis: Lovenox SQ Code Status Full Code Disposition: Patient refuses rehab placement/Home Health Needs Plan to discharge home today Subjective Patient is seen and examined at bedside Doing much better today Abd pain is controlled Tolerating diet Discussed with surgery and ID today Denies any chest pain, shortness of breath, dizziness nausea Family at bedside Patient refuses any rehab placement needs/Home Health needs Review of Systems Review of Systems: All systems reviewed & are unremarkable except as noted in HPI & below Physical Exam Physical Exam: Physical Exam: Vitals signs as noted above General Appearance:Moderately built and nourished, no apparent distress Head: normocephalic, Atraumatic Eyes: normal inspection, EOMI Neck: supple, Trachea midline Respiratory/Chest: Normal breath sounds, CTA Cardiovascular: S1, S2, No murmur Abdomen/GI:Soft, +Surgical site in dressing, mild tender, Bowel sounds present Extremities/Musculoskelatal:normal inspection, no edema Neurologic/Psych:AAOX3, grossly no focal neurological deficits Skin: normal color, warm Results & Data Vital Signs (Past 12 Hours) Vital Signs Temp Pulse Resp BP Pulse Ox 07/30/18 06:49 37.5 C 89 18 171/97 H 93 Laboratory Results BMP 07/30/18 06:50 Sodium 143 Potassium 3.2 L Chloride 109 H Carbon Dioxide 27 BUN 9 Creatinine 0.35 L Glucose 119 H Calcium 8.5 Liver Function 07/30/18 Range/Units 06:50 Total Bilirubin 0.7 (0.2-1) mg/dl Direct Bilirubin 0.4 H (0-0.2) mg/dl AST 15 (15-37) U/L ALT 29 (12-78) U/L Alkaline Phosphatase 149 H (45-117) U/L Albumin 2.8 L (3.4-5.0) gm/dl
--- NOTE | 2018-07-30 15:10 | Discharge Summary ---
Date of Service July 30, 2018 Admission HPI Per Admitting Provider CHIEF COMPLAINT: Severe sepsis. HISTORY OF PRESENT ILLNESS: This is a 62-year-old female with past medical history significant for hypertension, hyperlipidemia, fibromyalgia, major depression, kyphoscoliosis, chronic pain, presents with altered mental status. The patient lives with her . As per patient has chronic back pain since last 20years and her family doctor is trying to cut back on her pain medications since last 2 years. He does not know when the last cut back on the medication happened, but she complains of chronic back pain and she is trying to compensate her reduced pain medication with [id number] medications; the patient is taking Tylenol PM. She complained of lower back pain and belly pain since yesterday evening and this happens sometimes and the patient today morning, complained lot of pain and he just watched because he could do not do much, but later in the day, she started to get confused when he brought the patient to the hospital. In the hospital, the patient was somewhat confused and tachycardic, temp spiked, and there is elevated white count. Lactic acid was 4.2, elevated total bilirubin and AST and ALT, alkaline phosphatase. Ammonia level was normal. Troponin was negative. TSH was okay.There was question of anticholinergic overdose as the patient was taking [id number], Tylenol PM. We do not know how much she took, so the patient got intubated and CT imaging studies were done; CTA of the chest and CT of the abdomen and pelvis and CT of the head. CT of the abdomen and pelvis showed intra and extrahepatic biliary duct dilatation. No obvious gallstones, but the question of cholecystitis versus ascending cholangitis. The ER physician tried to do a lumbar puncture but because of her kyphoscoliosis, it was difficult, and also based on the CT scan findings it seemed more of gall bladder infection.Notified GI and also talked to the terminal worker. We could not get a Tylenol level because of elevated bilirubin and in the ER and acetylcysteine antidote was started. She is also status post right femoral central line and also has peripheral lines and also NG tube . The patient is still tachycardic, but resting comfortably. Received 2 liters IV fluids in the ER, blood pressure is okay. Admission Exam Per Admitting Provider PHYSICAL EXAMINATION: GENERAL: The patient is status post intubated and sedated. VITAL SIGNS: Temperature T-max 39.1, pulse in the 120s, respiratory rate 16, blood pressure 136/78, oxygen 97% on vent. HEENT: No pallor. Pupils are sluggish to react. NECK: No obvious neck masses seen. CARDIOVASCULAR: S1, S2 heard. Tachycardia. No murmurs. RESPIRATORY SYSTEM: Normal AP diameter. No accessory muscle use. No wheezing, no crackles. ABDOMEN: Soft. No distention seen. CENTRAL NERVOUS SYSTEM: Status post intubated and sedated. EXTREMITIES: No edema, no erythema. Principal Diagnosis Discharge Information Discharge Diagnosis Cholangitis S/P Laparoscopic cholecystectomy Metabolic Encephalopathy Hypophosphatemia Septisemia Discharge Goals Decrease discomfort,Improve disease control, Improve function Discharge Activity Limitations Per instructions/follow-up Discharge Data Allergies Allergy/AdvReac Type Severity Reaction Status Date / Time sulfamethoxazole Allergy Rash Verified 07/23/18 22:25 [From Bactrim] trimethoprim [From Bactrim] Allergy Rash Verified 07/23/18 22:25 IBUPROFEN Allergy Unknown GASTRIC Uncoded 07/23/18 22:25 SYMPTOMS Consultations 07/23/18 22:51 ED Decision to Admit Stat 07/24/18 01:05 Consult Case Management - Discharge Planning Routine Consult Pomology Teacher Routine 07/24/18 11:32 Consult General Surgery Routine 07/25/18 08:20 Consult Infectious Diseases Routine 07/25/18 18:03 Consult Neurology Routine Procedures Performed Operation Date: 07/24/18 05:10 Actual Procedures p Endoscopic Retrograde Cholangiopancreatography(Not Applicable) - Dominick Saavedra MD Operation Date: 07/28/18 13:15 Actual Procedures p Laparoscopic Cholecystectomy(Not Applicable) - Carol Saucedo MD CT head: No acute intracranial abnormality. White matter hypodensity is nonspecific but suggestive of microvascular ischemic change. CTA: 1. No evidence for pulmonary embolus with limitations as described above. 2. Patchy and linear densities within the lungs posteriorly. This favors atelectasis. A pneumonia could also have a similar appearance. 3. Satisfactory support line placement. 4. Mild pulmonary hypertension. 5. Dextroscoliosis of the thoracic spine. 6. Small hiatus hernia. CT ABD: 1. Moderate intra and extrahepatic bile duct dilatation with enhancement of the wall of the common bile duct and gallbladder. There is also trace pericholecystic fluid. Therefore, this could represent an acute cholecystitis or ascending cholangitis. 2. Nasogastric tube terminates in the stomach. 3. There is a 2 cm fat-containing lesion within the left ovary. Therefore, this is consistent with a dermoid. ERCP: Impression: - The entire main bile duct was dilated. - Choledocholithiasis was found. Complete removal was accomplished by biliary sphincterotomy and balloon extraction. - The biliary tree was swept and pus was found. - Two plastic stents were placed into the common bile duct. Recommendation: - Return patient to ICU for ongoing care. - Refer to a surgeon for cholecystectomy. - Continue IV ABx. Needs a total course of 10 days. - Supporitve care. - Repeat ERCP in 8 weeks to remove the stent. Abd USD: 1. The gallbladder is filled with sludge and demonstrates a thickened wall and a small amount of pericholecystic fluid. This is concerning for acute cholecystitis. Clinical correlation recommended. 2. Interval decompression of the common bile duct. The common bile duct stent is in place. Ordered Studies 07/23/18 20:11 CT head/brain wo con Stat 07/23/18 21:51 CT abd pelvis IV con only Stat CT angio chest PE protocol Stat 07/24/18 04:30 FL ERCP biliary ductal Routine 07/24/18 12:05 US abdomen limited Routine Hospital Course (1) Hypophosphatemia: Continue PO supplementation Monitor (2) Metabolic encephalopathy: resolved (3) Opioid withdrawal: resolved, back on home narcotic regimen. (4) Gram negative septicemia: Blood Culture: E.coli Repeat Blood Cultures: Negative Received IV cefepime and Flagyl>>>>>Plan to trasnsition to PO omnicef and flagyl as per ID recommendations (5) Choledocholithiasis: Cholangitis s/p ERCP with stone removal and CBD stent placement S/P Laparoscopic cholecystectomy POD #2 Tolerating diet Surgery following Pain is controlled Needs follow up with Surgery upon discharge (6) Chronic pain syndrome: Takes chronic narcotics long-standing for severe back pain. (7) Severe sepsis: Resolved (8) DVT prophylaxis: Lovenox SQ Code Status Full Code Disposition: Patient refuses rehab placement/Home Health Needs Plan to discharge home today Total Time Total Time Spent Total Time Spent (In Minutes): 39 minutes Total Time Includes: Examination of the Patient, Discharge Planning, Medication Reconciliation, Communication With Other Providers and Other Discharge Plan Discharge Items Patient Disposition: Home - Self-Care Reason For Visit: AMS Discharge Diagnosis: Cholangitis S/P Laparoscopic cholecystectomy Metabolic Encephalopathy Hypophosphatemia Septisemia Discharge Goals: Decrease discomfort, Improve disease control and Improve function Activity: Per 'Additional Instructions' section Exercise/Sports: Gradually increase as tolerated Non-emergency contact: Primary Care Provider and Surgeon Call non-emergency contact if: you have any medication questions, your symptoms worsen, your pain is not controlled, your pain is worsening, your pain is unusual for you, your pain is concerning for you, you have a fever, your wound has increased redness, your wound has increased drainage and your wound pain has increased Follow-up/Referrals: Brenda Patrick MD [Primary Care Provider] - Diet: Heart Healthy Addtl Provider Instructions: Follow up with your PCP on August 04, 2018 at 12:45pm Follow up with your Surgeon on August 10, 2018 at 2:15pm Complete the antibiotic course as prescribed as per infectious disease recommendations Seek immediate medical attention if your symptoms reoccur or worsen Surgical discharge instructions: -No heavy lifting over 20 pounds for 3-4 weeks - No strenuous activity until cleared by surgeon - No submerging incisions underwater for 2 weeks (no bathing, swimming, or hot tubs) - May take extra strength Tylenol or Ibuprofen as needed for mild pain. continue your home medications for pain management. Try to avoid taking tylenol while you are taking Percocet as Percocet has Tylenol in it. - You may shower . Leave steri strips on incisions for 7 days and then remove. They may fall off on their own - Follow-up in surgical office in 2 weeks, please call office at [phone] to make an appointment Prescriptions: New amlodipine [Norvasc] 5 mg Tablet 2.5 mg PO QAM 30 Days Qty: 15 RF: 0 Phospha 250 Neutral 250 mg Tablet 1 tab PO BID 10 Days Qty: 20 RF: 0 cefdinir 300 mg capsule 300 mg PO BID 10 Days Qty: 20 RF: 0 metronidazole [Flagyl] 500 mg tablet 500 mg PO Q12H 10 Days Qty: 20 RF: 0 Continued simvastatin [Zocor] 10 mg tablet 10 mg PO DAILY RF: 0 acetaminophen [Tylenol Extra Strength] 500 mg Tablet 500 mg PO Q6H PRN (Reason: Pain) RF: 0 oxycodone-acetaminophen [Percocet] 5-325 mg tablet 1 tab PO BID PRN (Reason: Pain) RF: 0 morphine [MS Contin] 60 mg tablet extended release 60 mg PO Q12 RF: 0 lisinopril 10 mg tablet 10 mg PO DAILY RF: 0 promethazine 25 mg tablet 25 mg PO Q8 PRN (Reason: Nausea) RF: 0 omeprazole 20 mg capsule,delayed release(DR/EC) 20 mg PO DAILY RF: 0 gabapentin [Neurontin] 100 mg capsule 100 mg PO TID RF: 0 scopolamine base [Transderm-Scop] 1 mg over 3 days patch 3 day 1 patch topical .UD WHEN TRAVELING RF: 0 [place]-3 350 mg-235 mg- 90 mg-597 mg Capsule,Delayed Release(Dr/Ec) 1 cap PO TID RF: 0 Sleep Aid Tab 1 tab PO HS PRN (Reason: Sleep) RF: 0 Stand-Alone Forms: [facility]/Other Patient Handouts: Cholecystectomy Laparoscopic, Pain Management Discharge Orders: Discharge Order (Routine); Ordered 07/30/18 Ordered By: Aroldo Burns Admission Data Admit Date/Time: 07/23/18 23:46 Attending Provider: Aroldo Burns Admit Provider: Ivan Christian Primary Care Provider: Brenda Patrick Other Providers: Ivan Christian ; Ermias Jorge ; Carol Saucedo ; Aakash Monte ; Maryana Schultz ; Michell Saul ; Troy Wells ; Michell Howard ; Jaime Velazquez ; German Moreno ; Hayley Argueta Service: Surgical Services Other Interventions: Discharge Summary Assessment (RN) Last Done: 07/30/18 15:20 Pending Studies at Discharge: No DC Date/Time DO NOT enter until pt leaves facility: 07/30/18 16:00
== END 2018-07-30 16:00 | disposition home or self-care (01) | DRG 871 ==
LOC: ED 19:47 → 1E 23:46 → SUATTDRO 23:46 → 1E 07-24 00:43 → 2S 07-24 15:14 → 3N 07-28 11:36
DX: M41.9 Scoliosis, unspecified; E78.5 Hyperlipidemia, unspecified; K80.30 Calculus of bile duct with cholangitis, unspecified, without obstruction; Z88.2 Allergy status to sulfonamides; Z88.6 Allergy status to analgesic agent; G89.4 Chronic pain syndrome; R65.20 Severe sepsis without septic shock; G93.41 Metabolic encephalopathy; Z87.891 Personal history of nicotine dependence; E83.39 Other disorders of phosphorus metabolism; I10 Essential (primary) hypertension; Z72.89 Other problems related to lifestyle; M79.7 Fibromyalgia; A41.51 Sepsis due to Escherichia coli [E. coli]; F11.23 Opioid dependence with withdrawal